=== PATIENT | female | born 1945 | race Caucasian/White ===

== ENCOUNTER 2017-11-06 05:36 | Day surgery (SDC) | payer MEDICARE, OTHER, SELFPAY ==
[2017-11-06] VITALS (8 sets, daily range): BP systolic 97–145; BP diastolic 58–71; PULSE 62–77; RESP 14–18; TEMP 36.3–36.6; O2SAT 95–98; BMI 25.9
--- NOTE | 2017-11-06 | COLBX_PTH ---
PATIENT: SHAYNE HENRY LOC: EN U#:[id number] AGE/SX: 72/F ROOM: RE11/06/[address]: Dr. Tevin Lange MD : 1945 BED: DIS: 11/06/2017 SPEC #: [id number] RECD: 11/06/17 09:55 STATUS: BONNIE TRAVON #: [id number] MARILIN: 11/06/17 00:[address]: Tevin Lange DEPT: SURGICAL PATHOLOGY RECD BY: Corey Barnes ENTERED: 11/06/17 10:14 SP TYPE: COLON BX OTHR DR: Dr. Giles Berg MD Tissues: Rectum, NOS Procedures: Surgery Specimen Level IV HEADER OPERATION: Colonoscopy with biopsy PRE-OP DIAGNOSIS: Diverticulitis TISSUE SUBMITTED: Rectal polyps biopsies MICROSCOPIC DIAGNOSIS Rectal polyps, biopsy: Consistent with hyperplastic polyps. SJ:nabeel 11/09/17 MICROSCOPIC DESCRIPTION Slides are reviewed. GROSS DESCRIPTION Received in fixative is one container labeled with the patient's name and designated rectal polyp biopsy. The specimen consists of two irregular fragments of light ferro soft tissue that in aggregate measure 0.6 x 0.3 x 0.1 cm. The specimen is totally submitted in one cassette. / SJ:nabeel 11/06/17 TC:5 CPT: 41235
--- NOTE | 2017-11-06 06:48 | PCM.OPRPT ---
Problem List (1) Diverticulitis Status: Acute Report of Operation Date of Procedure: 11/06/17 Pre-Operative Diagnosis: Multiple bouts of recurrent diverticulitis Post-Operative Diagnosis: Extensive transverse and descending and sigmoid diverticulosis, 2 diminutive sessile polyps of the rectum Surgery/Procedure Performed:: Colonoscopy with cold forceps biopsy Description of Surgical Findings:: Timeout and informed consent was obtained. 72-year-old female was taken to the endoscopy suite. She was placed in a left lateral decubitus position. Throughout the procedure total of 100 mg Remeron 3.5 mg of Versed were given as intravenous sedation. Digital rectal exam performed. Grade 2-3 internal hemorrhoids. No active bleeding. Flexible colonoscope inserted in the rectum advanced to a somewhat tortuous sigmoid colon. The scope was then advanced into the transverse colon with transabdominal pressure the scope was nicely advanced to the cecum. Bowel prep was very good. The cecum and ileocecal valve area was nicely achieved. The scope was carefully withdrawn from the ascending and transverse colon without abnormality. In the distal transverse colon descending colon and sigmoid colon there was extensive diverticulosis though without evidence of acute inflammation. The scope was retrograde flex within the rectum 2 diminutive rectal polyps identified cold forceps were used to sample and eradicate these 4 mm items. Hemostasis was intact. Excess fluid and air was aspirated. The procedure was completed with the patient tolerating it well. Impression Extensive distal transverse and descending and sigmoid diverticulosis 2 diminutive rectal polyps likely benign The patient will consider a future lap scopic sigmoid colectomy for treatment of multiple bouts of recurrent diverticulitis Next routine screening colonoscopy would be in 10 years pending the pathology of the very diminutive rectal polyps with her previous endoscopy September 22, 2013. CC: Dr. Berg Medications were given at 0630. Scope was inserted 0632. The cecum was reached at 0635.37. The scope was completed 0645.17 Tevin Lange M.D., F.A.C.S. Type of Anesthesia:: IV Sedation
== END 2017-11-06 07:52 | disposition home or self-care (01) ==
LOC: EN 05:37 → AC 05:38
PROVIDERS: Family Provider Internal Medicine; PCP Internal Medicine; Visit Provider Surgery
PROC: 0DJD8ZZ Inspection of Lower Intestinal Tract, Via Natural or Artificial Opening Endoscopic (ICD-10-PCS; CPT 45378; principal; 2017-11-06 06:25)
DX: K62.1 Rectal polyp (principal); K57.30 Diverticulosis of large intestine without perforation or abscess without bleeding; K64.1 Second degree hemorrhoids; E03.9 Hypothyroidism, unspecified; E78.00 Pure hypercholesterolemia, unspecified; Z79.899 Other long term (current) drug therapy
CPT/HCPCS: 45380; 88305; 99152; 99153; J7120

== ENCOUNTER → 2017-11-21 08:00 | Outpatient (CLI) | payer MEDICARE, OTHER, SELFPAY ==
--- NOTE | 2017-11-21 | IMM_PTH ---
PATIENT: SHAYNE HENRY LOC: [facility] U#:[id number] AGE/SX: 79/F ROOM: RE11/21/[address]: Dr. Tevin Lange MD : 1945 BED: DIS: SPEC #: [id number] RECD: 11/26/17 12:50 STATUS: BONNIE REEnder #: [id number] MARILIN: 11/21/17 00:[address]: Tevin Lange DEPT: IMMUNOHISTOCHEMISTRY RECD BY: No Billy Tissues: Right breast, NOS Procedures: CALPONIN-1 (add) CK5-6 (add) CK8 (add) E-CAD (add) HER2 JESSICA (add) KI-67 (add) P53 (add) MI (add) P40 (add) ER (initial) PHYSICIAN & INSTITUTION [place] [id number] SPECIMEN INFORMATION: Tissue Source: Right breast Clinical Info: Abnormal right breast ultrasound Specimen Number: [id number] CPT code: 16284, 45519 x6, 11196 x3 METHODOLOGY: Deparaffinized sections of prefer/formalin-fixed tissue or PAP/DQ stained slides are incubated with monoclonal/polyclonal antibodies/oligonucleotide probes. Localization is made via biotin free immunoperoxidase method. Appropriate controls are performed and reacted as expected. Results on target cell population are indicated in the following table: RESULTS: ANTIBODY / CLONE RESULT P53 (DO-7) negative Ki-67 (30-9) positive, moderate CK8 (89iltsV99) positive, dim CK5-6 (D5 & 1684) positive Calponin-1 (KQ310K) negative P40 (BC28) negative E-Cad (ECH-6) positive MORPHOMETRIC ANALYSIS ER (clone 6F11) 0% MI (clone 16/1E2) 0% Her-2Neu (clone CB11) 0 The prognostic test for HER2 is performed on formalin-fixed paraffin embedded tissue. A 3+ (positive) staining pattern is defined as intense, homogeneous, complete, circumferential membranous staining in >10% of contiguous tumor cells. A similar weak (2+) staining pattern is interpreted as equivocal. JONG follow-up testing is recommended for all equivocal cases. Positivity/negativity for ER/MI is reported if > or < 1% of the tumor cells are immuno- reactive, respectively. The ASCO/CAP criteria is used for scoring. Reference: Journal of Clinical Oncology, 2013; 31:3264-1216 & 2010; 16:1752-9779. Duration of fixation: 48 Hrs; Sample Adequate: Yes. These assays have not been validated on decalcified tissues. Results should be interpreted with caution given the likelihood of false negativity on decalcified specimens. These tests were developed and their performance characteristics determined by [facility]. They may not have been cleared or approved by the U.S. Food and Drug Administration. The FDA has determined that such clearance or approval is not necessary. 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 Negative for estrogen receptors (unfavorable prognostic indicator). Negative for progesterone receptors (unfavorable prognostic indicator). Negative for overexpression of IRX3hhv. AM:nabeel 11/27/17
--- NOTE | 2017-11-21 | BRBX_PTH ---
PATIENT: SHAYNE HENRY LOC: [facility] U#:[id number] AGE/SX: 79/F ROOM: RE11/21/[address]: Dr. Tevin Lange MD : 1945 BED: DIS: SPEC #: [id number] RECD: 11/21/17 10:45 STATUS: BONNIE TRAVON #: [id number] MARILIN: 11/21/17 00:[address]: Tevin Lange DEPT: SURGICAL PATHOLOGY RECD BY: Matt Aragon Tissues: Right breast, NOS Procedures: Surgery Specimen Level IV HEADER OPERATION: Right breast biopsy PRE-OP DIAGNOSIS: Right breast abnormal US TISSUE SUBMITTED: Right breast tissue ISCHEMIC TIME: 5 seconds FIXATION TIME: 48 hours MICROSCOPIC DIAGNOSIS Right breast, ultrasound-guided core biopsy: Invasive ductal carcinoma: Grade ? 2/3 Maximal length ? 12 mm AM:nabeel 11/24/17 COMMENT ER/DC/Pwk5xii studies are being performed on sections of tumor and the results from this study will be reported separately ([id number]). Case has been reviewed in consultation with Dr. Oakley who concurs with the above diagnosis. IDC:SJ MICROSCOPIC DESCRIPTION Slides are reviewed. GROSS DESCRIPTION Received in fixative is one container labeled with the patient's name and designated right breast tissue. The specimen consists of an elongated piece of ferro soft tissue measuring 1.5 cm in length and 0.1 cm in diameter. The specimen is totally submitted in one cassette. / TEODORO:nabeel 11/23/17 TC:0 CPT: 08357
== END ==
PROVIDERS: Visit Provider Surgery
DX: R92.8 Other abnormal and inconclusive findings on diagnostic imaging of breast (principal)
CPT/HCPCS: 88305; 88341; 88342

== ENCOUNTER → 2017-11-25 09:18 | Outpatient (CLI) | payer MEDICARE, OTHER, SELFPAY ==
--- NOTE | 2017-11-25 09:20 | MRI_ITS ---
STUDY: BILATERAL BREAST MR WITHOUT AND WITH CONTRAST REASON FOR EXAM: Female, 72 years old. Right upper outer quadrant breast lump. Biopsy performed November 21, 2017. No results available at this time. TECHNIQUE: Multi-sequence multi-echo imaging of both breasts was performed with a dedicated breast coil. T1-weighted and T2-weighted images were performed before the administration of contrast. T1-weighted images were also performed after the administration of 7 mL of Gadavist contrast intravenously without complications. COMPARISON: FINDINGS: RIGHT BREAST: The breast tissue is fatty with minimal background enhancement. In the upper outer quadrant of the right breast corresponding to the mammographic and ultrasonographic findings is an irregular shaped minimally enhancing mass measuring approximately 14 mm x 9 mm. There is a tissue clip marker in the anterior aspect of the enhancing lesion, which represents the index lesion. LEFT BREAST: The breast tissue is fatty with minimal background enhancement. There are no abnormal enhancing masses or areas of non-mass enhancement in the left breast. There are no enlarged or abnormal lymph nodes. There is no abnormality in the visualized regions of the chest or liver. MRI/Breast w/o and/or W Cont Bilat IMPRESSION: 14 mm x 9 mm enhancing lesion in the upper outer quadrant of the right breast at the 10:00 position corresponding to the mammographic and ultrasonographic findings. No other significant abnormality. CATEGORY: BIRADS Category 6: Known Biopsy-Proven Malignancy - Appropriate Action Should Be Taken. A letter regarding these results will be sent to the patient by the facility within 30 days. Electronically Signed: Demarco Spence MD at 15:23 EDT , Service support ,
== END ==
PROVIDERS: Family Provider Internal Medicine; PCP Internal Medicine; Visit Provider Surgery
DX: N63.11 Unspecified lump in the right breast, upper outer quadrant (principal)
CPT/HCPCS: 77059; A9585; C8908

== ENCOUNTER 2017-12-18 07:10 | Day surgery (SDC) | payer MEDICARE, OTHER, SELFPAY ==
--- NOTE | 2017-12-18 | IMM_PTH ---
PATIENT: SHAYNE HENRY [place] [facility] [id number] AGE/SX: 72/F ROOM: RE12/18/[address]: Dr. Tevin Lange MD : 1945 BED: DIS: 12/18/2017 SPEC #: [id number] RECD: 12/23/17 12:43 STATUS: BONNIE REQ #: [id number] MARILIN: 12/18/17 00:[address]: Tevin Lange DEPT: IMMUNOHISTOCHEMISTRY RECD BY: No Billy ENTERED: 12/23/17 12:44 SP TYPE: IMMUNO OTHR DR: Dr. Giles Berg MD Tissues: A - Axillary lymph node, NOS Procedures: CK7 (add) Pankeratin (initial) Pankeratin (add) PHYSICIAN & INSTITUTION [place] [id number] SPECIMEN INFORMATION: Tissue Source: A ? [place] lymph nodes Clinical Info: Right breast mass Specimen Number: [id number] A1, A2.1 & A2.2, A3 CPT code: 88541, 74390 x5 METHODOLOGY: Deparaffinized sections of prefer/formalin-fixed tissue or PAP/DQ stained slides are incubated with monoclonal/polyclonal antibodies/oligonucleotide probes. Localization is made via biotin free immunoperoxidase method. Appropriate controls are performed and reacted as expected. Results on target cell population are indicated in the following table: RESULTS: ANTIBODY / CLONE RESULT Block A1 AE1-3 (AE1/AE3/PCK26) negative CK7 (OV-TL12/30) negative Block A2.1 AE1-3 (AE1/AE3/PCK26) negative CK7 (OV-TL12/30) negative Block A2.2 AE1-3 (AE1/AE3/PCK26) negative CK7 (OV-TL12/30) negative Block A3 AE1-3 (AE1/AE3/PCK26) negative CK7 (OV-TL12/30) negative These tests were developed and their performance characteristics determined by [facility]. They may not have been cleared or approved by the U.S. Food and Drug Administration. The FDA has determined that such clearance or approval is not necessary. INTERPRETATION: A. [place] lymph nodes, biopsy: Five out of five lymph nodes, negative for metastatic carcinoma. SJ:nabeel 12/24/17
--- NOTE | 2017-12-18 | AXNB_PTH ---
PATIENT: SHAYNE HENRY [place]: [facility] [place][id number] AGE/SX: 72/F ROOM: RE12/18/[address]: Dr. Tevin Lange MD : 1945 BED: DIS: 12/18/2017 SPEC #: [id number] RECD: 12/18/17 11:18 STATUS: BONNIE TRAVON #: [id number] MARILIN: 12/18/17 00:[address]: Tevin Lange DEPT: SURGICAL PATHOLOGY RECD BY: No Billy ENTERED: 12/18/17 12:15 SP TYPE: AX NODE BX OTHR DR: Dr. Giles Berg MD Tissues: A - Axillary lymph node, NOS B - Right breast, NOS Procedures: Frozen Section (charge) Frozen Section Add'l ([facility]) Surgery Specimen Level V Frozen (no charge) HEADER OPERATION: Right breast lumpectomy, sentinel node, NL, Neoprobe PRE-OP DIAGNOSIS: Right breast mass TISSUE SUBMITTED: A ? [place] lymph node for frozen collected at 1111, sent to lab at 1114, B ? Right breast mass, wire anterior lateral, long suture lateral, short suture superior, collected at 1129, sent to lab at 1133 FROZEN SECTION DIAGNOSIS A. [place] lymph nodes, biopsy: Five out of five lymph nodes negative for metastatic carcinoma. SJ:nabeel 12/18/17 MICROSCOPIC DIAGNOSIS A. [place] lymph nodes, biopsy: Five out of five lymph nodes, negative for metastatic carcinoma. See comment. B. Right breast mass, lumpectomy: Invasive ductal carcinoma. See cancer summary below. INVASIVE BREAST CANCER SUMMARY: (Including specimen A & B) Specimen ? partial breast Procedure ? excision with wire-guided localization Lymph node sampling ? sentinel lymph nodes Specimen integrity ? single, intact specimen Specimen size ? 6.5 x 5.5 x 4 cm Specimen laterality - right Tumor site ? not specified Tumor size ? 1.8 x 1.5 x 1.5 cm Tumor focality ? single focus of invasive carcinoma Macroscopic and Microscopic extent of tumor: Skin ? skin is not present. Nipple ? not applicable Skeletal muscle ? no skeletal muscle present. Ductal carcinoma in situ (DCIS) ? no DCIS is present. Lobular carcinoma in situ (LCIS) ? not identified Histologic type of invasive carcinoma ? invasive ductal carcinoma (no special type) Histologic Grade (Pembroke grade): Glandular/tubular differentiation - score 3 Nuclear pleomorphism - score 3 Mitotic count ? score 3 Overall grade - 3 (score of 9) Margins - margins uninvolved by invasive carcinoma. The tumor is 0.2 cm away from the closest superior margin. Treatment effect: Response to presurgical (neoadjuvant) therapy - no known presurgical therapy. Lymph-Vascular invasion ? not identified Dermal lymph-vascular invasion ? not applicable Lymph nodes: Number of sentinel lymph nodes examined - 5 Total number of lymph nodes examined (sentinel and nonsentinel) - 5 Number of lymph nodes with macrometastases, micrometastases and isolated tumor cells - 0 Method of evaluation of sentinel lymph nodes - H & E, multiple levels and IHC. Distance metastasis ? not applicable Additional pathologic findings ? intraductal hyperplasia without atypia Ancillary studies - previously performed on section of tumor ([id number] / [id number]). ER ? negative (0%) NM - negative (0%) Her2 lena ? negative (0) Microcalcifications ? not identified Clinical history - Please make reference to previous specimen ([id number]) right breast, ultrasound-guided core biopsy with diagnosis of invasive ductal carcinoma. PATHOLOGIC STAGE: pT1c pN0(sn) Mx The above summary is in compliance with [employer] (CAP) Cancer Protocols Checklist and [place] Joint Committee on Cancer (AJCC), Staging Manual, 8th Ed. SJ:nabeel 12/23/17 COMMENT A. The lymph nodes are negative for metastatic carcinoma on multiple H & E levels and immunohistochemical stains for cytokeratins ([id number]). Case has been reviewed in consultation with Dr. Gonzales who concurs with the above diagnosis. IDC:AM MICROSCOPIC DESCRIPTION Slides are reviewed. GROSS DESCRIPTION A - Received fresh for frozen section diagnosis labeled with the patient's name is a specimen designated sentinel lymph node. The specimen consists of a piece of adipose tissue containing a nodule consistent with lymph node. Five lymph nodes are identified measuring 0.5 to 1.5 cm in greatest dimension. Research Methodologist sections are submitted in three cassettes as follows: 1 ? frozen section, one bisected lymph node, 2 ? frozen section, two lymph nodes, one lymph node inked black (submitted as 2.1 and 2.2 for permanent), 3 ? two lymph nodes, one lymph node inked black. / SJ:nabeel 12/18/17 B Received fresh for intraoperative consultation labeled with the patient's name is a specimen designated right breast mass. The specimen consists of a piece of fibroadipose tissue with needle localization measuring 6.5 x 5.5 x 4 cm. The specimen is oriented as follows: wire - anterior lateral, long suture - lateral, short suture ? superior. The specimen is inked as follows: anterior ? yellow, posterior ? black, superior ? blue, inferior ? green, medial ? red and lateral ? orange. The specimen is serially sectioned and reveals a ferro, indurated mass measuring 1.8 x 1.5 x 1.5 cm. This mass is 0.2 cm away from the superior margin. This information is conveyed to the surgeon intraoperatively. Sections of the rest of the tissue reveal ferro-yellow adipose cut surfaces mixed with ferro-white fibrous area. Also present in the specimen container are detached pieces of adipose tissue measuring in aggregate 5 x 3 x 1 cm. Sections of the detached pieces of tissue do not reveal any mass lesion. Research Methodologist sections are submitted in 12 cassettes as follows: 1 ? perpendicular medial and lateral margins, 2 ? perpendicular anterior, posterior and inferior margins, 3-7 ? entire tumor with closest superior margin, 8 ? direct customer service representative section adjacent to the tumor, 9-12 ? direct customer service representative sections away from the tumor. / TEODORO:nabeel 12/21/17 TC:0 CPT: 45172 x2, 41711, 06691 x2, 60692
--- NOTE | 2017-12-18 07:14 | EKG12_ITS ---
Test Reason : PRE OP Blood Pressure : / mmHG Vent. Rate : 078 BPM Atrial Rate : 078 BPM P-R Int : 146 ms QRS Dur : 078 ms QT Int : 388 ms P-R-T Axes : 071 -09 030 degrees QTc Int : 442 ms Sinus rhythm with occasional Premature ventricular complexes Confirmed by ERIN SCHWAB, ANIBAL ([id number]), electronic news gathering editor JENS RAMOS ([id number]) on 12/21/2017 4:07:11 PM Referred By: Tevin Lange Confirmed By:ANIBAL KHAN MD
--- NOTE | 2017-12-18 07:16 | NM_ITS ---
PROCEDURE: NUCLEAR MEDICINE Injection [place] Node - RIGHT breast(s). REASON FOR EXAM: Female, 72 years old. Right breast cancer. TECHNIQUE: [place] node localization using radionuclide methods of the RIGHT breast(s) was performed following subcutaneous administration of 1.1 mCi of of sulfur colloid Tc-99m. FINDINGS: 1.1 mCi of technetium labeled sulfur colloid was injected subcutaneously in the upper outer quadrant of the breast for sentinel node imaging. NM/Lymph Node Injection Only IMPRESSION: Subcutaneous injection of 1.1 mCi of Tc labeled sulfur colloid in 4 equal aliquots as described Electronically Signed: Michael Napoles MD at 9:00 EDT Tel [phone], Service support ,
--- NOTE | 2017-12-18 07:24 | RAD_ITS ---
STUDY: X-RAY CHEST REASON FOR EXAM: Female, 72 years old. Preoperative assessment TECHNIQUE: PA and lateral COMPARISON: None. FINDINGS: The lungs are clear and expanded. There is no demonstrated pleural abnormality. There is a 1 cm calcified granuloma in the RIGHT upper lung. Normal size heart. Normal mediastinum and ondina. Normal visualized pulmonary arteries. Normal visualized aortic arch and descending thoracic aorta. Normal visualized thoracic spine. Normal visualized ribs, clavicles, and shoulders. There is no demonstrated abnormality of the visualized soft tissue structures of the upper abdomen. RAD/Chest PA and Lateral IMPRESSION: There is NO acute cardiopulmonary abnormality. Electronically Signed: Damir Wolf MD at 7:43 EDT , Service support ,
[2017-12-18 08:11] VITALS: BP 135/68; PULSE 75; RESP 16; TEMP 36.8; O2SAT 100; BMI 26.6
--- NOTE | 2017-12-18 08:14 | BI_ITS ---
SURGICAL BREAST SPECIMEN RADIOGRAPH CLINICAL: Document presence of surgical clip and localization wire in biopsy specimen. FINDINGS: Specimen shows presence of surgical clip and localization wire. Pathology is pending and an addendum to the biopsy report will be performed after the final pathologic diagnosis is rendered. Electronically Signed: Tevin Spencer, at 10:04 EDT Tel , Service support , BI/Breast Biopsy Specimen
[2017-12-18 08:23] LABS: Hematocrit 39.9 % (37-47); Hemoglobin 13.1 g/dl (12.0-15.0); Mean Corp Hgb Conc 32.8 g/gl (32-36); Mean Corpuscular Hgb 32.2 pg (27.0-32.0); Mean Platelet Vol. 10.7 fl (6.2-12.0); Platelet Count 162 K/mm3 (150-450); RBC Distribution Width CV 11.8 % (11.6-14.6); RBC Distribution Width SD 42.6 fl (35.1-43.9); Red Blood Count 4.07 M/mm3 (4.2-5.4); White Blood Count 3.8 K/mm3 (4.4-11.0)
[2017-12-18 08:30] LABS: Scan Indicated on CBC? Y/N NO
[2017-12-18 08:40] LABS: ALB/GLOB Ratio 1.1 RATIO (0.9-2.4); AST(SGOT) 24 U/L (15-37); Alanine Aminotransfer ALT/SGPT 29 U/L (13-56); Albumin, Serum 3.8 g/dL (3.2-5.0); Alkaline Phosphatase 67 U/L (45-117); Anion Gap 7 (5-15); BUN 13 mg/dL (7-18); BUN/Creat Ratio 17.9 RATIO (10-20); Calcium,Total 9.1 mg/dL (8.5-10.1); Chloride 107 mmol/L (98-107); Creatinine, Serum 0.73 mg/dL (0.55-1.02); EST Glomerular Filtration Rate 84 mL/min (>60); Est Glom Filt Rate - Afr Amer 101 mL/min (>60); Estimated Creatinine Clearance 38.37 ml/min; Globulin 3.4 g/dL (2.2-4.2); Glucose 100 mg/dL (74-106); Potassium 3.5 mmol/L (3.5-5.1); Protein, Total 7.2 g/dL (6.4-8.2); Sodium Level 143 mmol/L (136-145)
--- NOTE | 2017-12-18 10:33 | OP.PCM_ITS ---
Problem List (1) Breast cancer Status: Acute Qualifiers: Breast location: upper outer quadrant of breast Estrogen receptor status: negative Patient sex: female Laterality: right Qualified Code(s): C50.411 - Malignant neoplasm of upper-outer quadrant of right female breast; Z17.1 - Estrogen receptor negative status [ER-] (2) Breast mass, right Status: Acute Report of Operation Date of Procedure: 12/18/17 Pre-Operative Diagnosis: Invasive ductal carcinoma upper outer quadrant right breast Post-Operative Diagnosis: Same Surgery/Procedure Performed:: Stereotactic wire localization upper outer quadrant right breast. Right breast wire localized lumpectomy with right axillary blue dye and radioactive tracer sentinel lymph node biopsy Description of Surgical Findings:: Timeout and informed consent was obtained. 72-year-old female was taken to the stereotactic unit. She was placed prone on the table. The right breast was placed in a lateral medial view. The marking clip from the previous ultrasound- guided biopsy was rapidly identified. Stereotactic images are obtained. Digital information was obtained on the single target site. 15 mm was added to the depth. The right breast was sterilely prepped and draped. 1% lidocaine was used as local anesthetic. A 20-gauge Kopans needle is advanced to depth. It was placed. CC and mediolateral views were obtained demonstrating good localization. The patient tolerated the procedure well no apparent complications. Sterile dressings were applied. The patient was subsequently taken to the operating room for definitive surgical resection. Blood loss minimal no apparent complications. 70-year-old female was taken out from. She was placed on the table. She underwent general anesthesia. The right arm was carefully wrapped with soft roll simply the table. The right periareolar breast was prepped with alcohol. 2 cc. Massage was performed for 4 minutes. Then the right breast and axilla were sterilely prepped and draped including the wire localization area. I marked in the right axilla and the incision site. I used the neoprobe check the breast count and then the axillary count. Axillary count got to as high as 24 with the breast count being 3,400. I made my incision sharp dissection was performed immediate lymphatic blue tracts are identified I traced that to what appeared to be 2 blue lymph nodes adjacent to each other. There was then an adherent conglomerate of lymph nodes just adjacent to this area. I used hemoclips for hemostasis performed electrocautery completely around this conglomerate. I had completely removed had a 10 second count of 131 of the lymph node that was blue there is an additional lymph node that was removed that was pale there was no counts located within that visual inspection failed to reveal any suspicious residual lymph nodes I could not palpate any disease. That specimen was sent for frozen section and we got the frozen section returned 5 lymph nodes all negative. Hemostasis was assured in that right axillary spot. Now a curvilinear incision made in the upper quadrant of the right breast based upon the wire localization tedious circumferential dissection was performed using electrocautery. Specimen was completely excised there is some additional tissue on the posterior aspect that I completely removed as well in satisfactory separate specimens. The superficial margin actually was just beneath the skin where I made the incision. There was no gross evidence disease at that spot. The wire exited anterior laterally and put a long suture laterally and a short sutures superiorly. The specimen is felt to have clear margins albeit 2 mm margins at the anterior site. There is absolutely no ink on the tumor I felt that was an appropriate resection. I put for marking hemoclips within the cavity at the site of the tumor. The wound was hemostatic it was closed with deep layer of interrupted 3-0 Vicryl and the superficial layer of interrupted 4-0 Monocryl subdermal stitches. The axilla was closed with interrupted 3-0 Vicryl subdermal stitches and then a running septic or 4 Monocryl. Steri-Strips Telfa and OpSite dressings applied. The nhung- incisional wounds were anesthetized with 0.5% Marcaine 10 cc of Marcaine was used. A pressure dressing was applied. Sponge and instrument and needle counts were reported the surgeon for correct.. Specimens submitted included a right axillary sentinel lymph nodes in the right breast mass. Drains none. Blood loss minimal. The patient was sent to the recovery room in satisfactory condition. Tevin Lange M.D., F.A.C.S. Type of Anesthesia:: General Anesthesiologist: Damien Linder
[2017-12-18] MEDS: Ondansetron 4 MG/2 ML Vial (10:38)
[2017-12-18] MEDS: Isosulfan Blue 1% 5 ML Vial (10:40)
[2017-12-18] MEDS: Bupivacaine 0.25% 30 ML Vial (10:55)
[2017-12-18 12:04] VITALS: BP 117/66; BP 135/68; PULSE 88; RESP 16; TEMP 36.9; O2SAT 96
--- NOTE | 2017-12-18 12:05 | DCINST_ITS ---
Discharge Diet: No Restrictions Discharge Activity: May Not Drive - for 2-3 days or while taking narcotic pain meds. May shower in (days): 1 Lifting Restrictions: 10 pounds for 1 week. Call your doctor if your incision/area has: Continuous Slow Oozing, Sudden Increased Bleeding Call your doctor if you observe: Fever of 101 or Higher Suture Line Care: Avoid Pulling/Pushing, Avoid Pinching/Bending Remove Dressing in (days):: 1 - Remove bulky dressing tomorrow. May leave any opsite dressing for 3-4 days. Keep dressing in place until your follow-up appointment. Additional Dressing/Incision Instructions:: Remove bulky dressing tomorrow. May leave any opsite dressing for 3-4 days. Keep dressing in place until your follow-up appointment. Allergies/Adverse Reactions: Allergies ciprofloxacin [From Cipro] Allergy (Mild, Verified 12/18/17 08:01) Anaphylaxis erythromycin base Allergy (Mild, Verified 12/18/17 08:01) Unknown Medications to take at Discharge calcium citrate-vitamin D3 315 mg-250 unit tablet 1 tab PO QAM 10/15/17 fluticasone 50 mcg/actuation nasal spray,suspension 1 spray INTRANASAL QDAY latanoprost 0.005 % eye drops 1 drp OPHTHALMIC QPM 10/15/17 levothyroxine 50 mcg capsule 50 mcg PO QDAY 10/15/17 loratadine 10 mg tablet 10 mg PO QDAY 10/15/17 multivitamin capsule 1 cap PO QAM 10/15/17 sennosides 8.6 mg tablet 8.6 mg PO BID PRN 10/15/17 simvastatin 20 mg tablet 20 mg PO QPM 10/15/17 Hydrocodone Bitart/Apap 5-325 [[place] 5MG-325MG] 1 tablet PO Q6H PRN PRN 2 Days # 8 tablet 12/18/17 The following prescriptions were given: Hydrocodone Bitart/Apap 5-325 [[place] 5MG-325MG] 1 tablet PO Q6H PRN PRN 2 Days # 8 tablet PRN Reason: Pain Primary Care Physician: Giles Berg [Primary Care Provider] -
[2017-12-18 12:15] VITALS: BP 115/65; BP 135/68; PULSE 86; RESP 16; O2SAT 99
[2017-12-18 12:29] VITALS: BP 129/63; BP 135/68; PULSE 88; RESP 16; O2SAT 96
[2017-12-18 12:41] VITALS: BP 120/64; BP 135/68; PULSE 82; RESP 16; TEMP 36.7; O2SAT 99
[2017-12-18 13:34] VITALS: BP 135/68
== END 2017-12-18 13:35 | disposition home or self-care (01) ==
LOC: SDC 07:11 → AC 07:11
PROVIDERS: Family Provider Internal Medicine; PCP Internal Medicine; Visit Provider Surgery
PROC: (CPT 19301; principal; 2017-12-18 09:45)
DX: C50.411 Malignant neoplasm of upper-outer quadrant of right female breast (principal); Z17.1 Estrogen receptor negative status [ER-]; E03.9 Hypothyroidism, unspecified; E78.00 Pure hypercholesterolemia, unspecified; Z79.899 Other long term (current) drug therapy
CPT/HCPCS: 19301; 38500; 19281; 36415; 38792; 71046; 76098; 80053; 85027; 88305; 88307; 88309; 88331; 88332; 88341; 88342; 93005; A9541; J7120; J2405; Q9968

== ENCOUNTER 2018-01-28 09:14 | Day surgery (SDC) | payer MEDICARE, OTHER, SELFPAY ==
[2018-01-28 09:35] VITALS: BP 131/68; PULSE 73; RESP 14; TEMP 36.8; O2SAT 99; BMI 26.6
[2018-01-28] MEDS: Cefazolin 2 GM in 0.9% Normal Saline 100 ML IV (10:55)
--- NOTE | 2018-01-28 10:59 | PCM.DC.GS ---
Discharge Diet: Light diet - advance as tolerated - if you have questions about your diet instructions, please talk to you doctor. Discharge Activity: May Not Drive - for 1 week or while taking narcotic pain medicine. May shower in (days): 1 Lifting Restrictions: 10 pounds Call your doctor if your incision/area has: Continuous Slow Oozing, Sudden Increased Bleeding, Increased Pain/ Swelling, Increased Redness, Foul Smelling Discharge Call your doctor if you observe: Fever of 101 or Higher Suture Line Care: Avoid Pulling/Pushing, Avoid Pinching/Bending Additional Dressing/Incision Instructions:: Change or remove dressing in 4 days. Leave steri-strips in place for 1 week. Allergies/Adverse Reactions: Allergies ciprofloxacin [From Cipro] Allergy (Intermediate, Verified 01/27/18 11:39) Anaphylaxis IRREGLULAR HEART BEAT erythromycin base Allergy (Mild, Verified 01/27/18 11:39) Unknown Medications to take at Discharge calcium citrate-vitamin D3 315 mg-250 unit tablet 2 tab PO BID 10/15/17 fluticasone 50 mcg/actuation nasal spray,suspension 1 spray INTRANASAL QDAY 10/15/17 latanoprost 0.005 % eye drops 1 drp OPHTHALMIC QPM 10/15/17 levothyroxine 50 mcg capsule 50 mcg PO QDAY 10/15/17 loratadine 10 mg tablet 10 mg PO QDAY 10/15/17 multivitamin capsule 1 cap PO QAM 10/15/17 sennosides 8.6 mg tablet 8.6 mg PO DAILY 10/15/17 simvastatin 20 mg tablet 20 mg PO QPM 10/15/17 Dexamethasone [Decadron] 8 mg PO BID 84 Days #48 tab 01/27/18 Lidocaine/Prilocaine [Lidocaine-Prilocaine Cream] 30 gm TP DAILY PRN PRN #1 cream..g. 01/27/18 Ondansetron [Zofran Odt] 8 mg PO Q8H PRN PRN 10 Days #30 tab 01/27/18 Primary Care Physician: Giles Berg [Primary Care Provider] - Test Results: Test results from this visit will be discussed in further detail at your follow-up appointment, if applicable. Please Follow Up With: Tevin Lange MD - [phone] When: Further office appts. may be as you need. No sutures for removal
--- NOTE | 2018-01-28 11:02 | RAD_ITS ---
STUDY: X-RAY CHEST REASON FOR EXAM: Female, 72 years old. Post port placement. TECHNIQUE: Single AP portable view of the chest. COMPARISON: Comparison is made with prior study dated December 18, 2017. FINDINGS: A left sided vicente catheter as been placed. The tip is at the junction of the superior vena cava and right atrium. Stable calcified granulomas in the right lung. There is no demonstrated pleural abnormality. Normal size heart. Normal mediastinum and ondina. Normal visualized pulmonary arteries. There is atherosclerotic tortuosity of the aortic arch and descending thoracic aorta. Normal visualized thoracic spine. Normal visualized ribs, clavicles, and shoulders. There is no demonstrated abnormality of the visualized soft tissue structures of the upper abdomen. RAD/CXR for Line Placement IMPRESSION: Status post left portacatheter placement. The tip is at the junction of the superior vena cava and right atrium. Electronically Signed: Michael Napoles MD at 12:20 EDT Tel [phone], Service support ,
[2018-01-28] MEDS: Bupivacaine Mpf 0.5% 30 ML VIAL (11:30)
--- NOTE | 2018-01-28 11:42 | OP.PCM_ITS ---
Problem List (1) Breast cancer, right breast Status: Chronic Qualifiers: Report of Operation Date of Procedure: 01/28/18 Pre-Operative Diagnosis: Right breast cancer as noted Post-Operative Diagnosis: Same Surgery/Procedure Performed:: Left internal jugular 6 [place] PowerPort placement Description of Surgical Findings:: Timeout informed consent was obtained. 72-year-old female was taken the operating room. She was placed supine on the table. The left neck and chest were sterilely prepped draped. Ancef 2 g given intravenous preoperatively. Ultrasound was used to identify the left internal jugular vein. Under ultrasound guidance 1% lidocaine mixed 50-50 with 0.5% Marcaine was used as a local anesthetic. Throughout the procedure total of 13 cc was used. Local was instilled. A micropuncture needle was inserted into the left internal jugular vein followed by Seldinger wire advancement. Fluoroscopy demonstrated good positioning. Sheath dilator was inserted. The dilator wire removed. An 035 J- wire was inserted. Then local was instilled down upon the left chest wall second intercostal space and transverse incision was created. Left heart was used to make a subtenons pocket. The tubing was tunneled from the neck to the chest site. Then under fluoroscopic control sheath dilator was placed over the wire. The wire and the dilator were removed. The catheter was advanced through the sheath. The sheath was split. The catheter was positioned at the SVC atrial junction. It was amputated. Risk that was connected to the port and secured there with a port attachment device. The port was placed within the pocket and secured there with interrupted 2-0 silk. The port site was closed with interrupted 3-0 Vicryl subdermal stitches. The neck was closed with interrupted 5-0 Vicryl subdermal stitches. The port was accessed with a Sesay needle. It aspirated and flushed easily. It was flushed with 2 cc of heparinized saline. Steri-Strips Telfa OpSite dressings applied. Sponge and instrument and needle counts were reported the surgeon to be correct. Specimens none. Drains none. Blood loss minimal. She was taken to the recovery room in satisfactory condition without apparent complication. Stat portable chest x-ray is pending Tevin Lange M.D., F.A.C.S. Type of Anesthesia:: Local MAC Anesthesiologist: Demarco Hough
[2018-01-28 11:47] VITALS: BP 131/68; BP 97/85; PULSE 72; RESP 16; TEMP 36.2; O2SAT 94
[2018-01-28 11:52] VITALS: BP 117/71; BP 131/68; PULSE 62; RESP 16; O2SAT 98
[2018-01-28 11:57] VITALS: BP 124/72; BP 131/68; PULSE 64; RESP 16; O2SAT 99
[2018-01-28 12:05] VITALS: BP 108/71; BP 131/68; PULSE 62; RESP 16; TEMP 36.2; O2SAT 98
[2018-01-28 12:53] VITALS: BP 131/68
== END 2018-01-28 12:56 | disposition home or self-care (01) ==
LOC: SDC 09:15 → AC 09:16
PROVIDERS: Family Provider Internal Medicine; PCP Internal Medicine; Visit Provider Surgery
PROC: (CPT 36571; principal; 2018-01-28 10:45)
DX: C50.411 Malignant neoplasm of upper-outer quadrant of right female breast (principal); Z45.2 Encounter for adjustment and management of vascular access device; E03.9 Hypothyroidism, unspecified; E78.00 Pure hypercholesterolemia, unspecified; Z79.899 Other long term (current) drug therapy
CPT/HCPCS: 36571; 71045; 77001; J7120; C1788; J2405

== ENCOUNTER 2018-02-09 21:06 | Emergency (ER) | payer MEDICARE, OTHER, SELFPAY ==
[2018-02-09 21:07] VITALS: BP 108/67; PULSE 116; RESP 14; TEMP 38.1; O2SAT 97; BMI 27.1
--- NOTE | 2018-02-09 21:32 | EKG12_ITS ---
Test Reason : FEVER Blood Pressure : / mmHG Vent. Rate : 097 BPM Atrial Rate : 097 BPM P-R Int : 120 ms QRS Dur : 070 ms QT Int : 336 ms P-R-T Axes : 065 019 038 degrees QTc Int : 426 ms Poor data quality, interpretation may be adversely affected Sinus rhythm with Premature atrial complexes Otherwise normal ECG Confirmed by ERIN SCHWAB, ANIBAL ([id number]), assistant editor JENS RAMOS ([id number]) on 02/12/2018 2:20:10 PM Referred By: BROWN Confirmed By:ANIBAL KHAN MD
[2018-02-09] MEDS: Acetaminophen 500 MG Tablet 1000 MG PO (22:21)
[2018-02-09 22:31] VITALS: BP 125/69; PULSE 92; RESP 20; O2SAT 97
--- NOTE | 2018-02-09 22:35 | RAD_ITS ---
STUDY: X-RAY CHEST REASON FOR EXAM: Female, 72 years old. Breast cancer TECHNIQUE: PA and lateral views of the chest. COMPARISON: January 28, 2018. FINDINGS: Port on the left extends to the cavoatrial junction. The lungs are clear and expanded. There is right upper lung granuloma There is no demonstrated pleural abnormality. Normal size heart. Normal mediastinum and ondina. Normal visualized pulmonary arteries. Normal visualized aortic arch and descending thoracic aorta. There are diffuse degenerative changes of the visualized thoracic spine. Normal visualized ribs, clavicles, and shoulders. There is no demonstrated abnormality of the visualized soft tissue structures of the upper abdomen. RAD/Chest PA and Lateral IMPRESSION: Degenerative changes, as described above. No demonstrated acute cardiopulmonary process. Electronically Signed: Ghulam Espino MD at 23:43 EDT , Service support ,
[2018-02-09 22:47] LABS: Bacteria 0 SEEN /hpf (None Seen); Mucous, Urine 0 SEEN /hpf (<or=2+); Red Blood Cells-Urine 0 SEEN /hpf (0-5); Squamous Epithelial Cells - UA 0 SEEN /hpf (5-10); White Blood Cells 0 SEEN /hpf (0-5)
[2018-02-09 22:48] LABS: Color, Urine Yellow (Yellow); Glucose, Dipstick Normal (Normal); Ketone-Dipstick Negative (Negative); Leukocyte Esterase-Dipstick Negative /ul (Negative); Nitrite-Dipstick Negative (Negative); Occult Blood-Urine Negative /ul (Negative); Protein-Dipstick Negative (Negative); Specific Gravity, Urine 1.005 (1.002-1.030); Urine Bilirubin Dipstick Negative (Negative); Urine Clarity Clear (Clear); Urine Urobilinogen Normal (Normal)
[2018-02-09 22:49] LABS: International Normalized Ratio 1.1; Prothrombin Time (Protime)PT. 14.2 SECONDS (11.7-14.9)
[2018-02-09 22:50] LABS: Partial Thromboplast Time 33.3 Seconds (24.1-36.2)
[2018-02-09 22:56] LABS: ALB/GLOB Ratio 0.9 RATIO (0.9-2.4); AST(SGOT) 18 U/L (15-37); Alanine Aminotransfer ALT/SGPT 29 U/L (13-56); Albumin, Serum 3.1 g/dL (3.2-5.0); Alkaline Phosphatase 70 U/L (45-117); BUN 8 mg/dL (7-18); BUN/Creat Ratio 12.1 RATIO (10-20); Calcium,Total 8.6 mg/dL (8.5-10.1); Chloride 101 mmol/L (98-107); Creatinine, Serum 0.66 mg/dL (0.55-1.02); EST Glomerular Filtration Rate 93 mL/min (>60); Est Glom Filt Rate - Afr Amer 113 mL/min (>60); Estimated Creatinine Clearance 38.37 ml/min; Globulin 3.6 g/dL (2.2-4.2); Glucose 133 mg/dL (74-106); Potassium 3.6 mmol/L (3.5-5.1); Protein, Total 6.7 g/dL (6.4-8.2); Sodium Level 136 mmol/L (136-145)
[2018-02-09 22:57] LABS: Anion Gap 6 (5-15)
[2018-02-09 23:08] LABS: Absolute Lymphocyte Count 0.84 X10^3/ul (0.83-4.51); Absolute Neutrophil Count 0.6 X10^3/uL (2.0-7.7); Basophil# 0.01 X10^3/uL; Basophil% 0.5 % (0-1); Eosinophil# 0.02 X10^3/uL; Hematocrit 35.9 % (37-47); Hemoglobin 11.9 g/dl (12.0-15.0); Lymphocyte # 0.84 X10^3/ul (4.0); Lymphocyte % 41.4 % (19-41); Mean Corp Hgb Conc 33.1 g/gl (32-36); Mean Corpuscular Hgb 31.8 pg (27.0-32.0); Mean Platelet Vol. 11.5 fl (6.2-12.0); Monocyte# 0.59 X10^3/uL; Monocyte% 29.1 % (0-10); Neutrophil # 0.56 X10^3/uL (2.7-7.7); Neutrophil % 27.5 % (47-70); Platelet Count 112 K/mm3 (150-450); RBC Distribution Width CV 11.7 % (11.6-14.6); RBC Distribution Width SD 41.2 fl (35.1-43.9); Red Blood Count 3.74 M/mm3 (4.2-5.4)
[2018-02-09 23:12] LABS: Differential Indicated SCAN CRITERIA MET; POSITIVE COUNT NO; POSITIVE DIFFERENTIAL YES; POSITIVE MORPHOLOGY YES
[2018-02-09 23:16] VITALS: BP 110/63; PULSE 85; RESP 21; O2SAT 98
[2018-02-09 23:19] VITALS: TEMP 36.9
[2018-02-09 23:34] LABS: Differential Comment SCANNED
--- NOTE | 2018-02-09 23:49 | ED.VISSUMM ---
- ER Visit Summary Date of Service: 02/09/18 Chief Complaint: Fever History of Present Illness: The patient is a 72 F with history of breast cancer status post lumpectomy and node biopsy by Dr. Tevin Lange. She was diagnosed with stage I breast cancer. First dose of chemotherapy February 03. She denies headache. She denies photophobia, rhinorrhea, nasal congestion, postnasal drainage, sore throat or earache. She denies neck pain or neck stiffness. She denies shortness of breath, cough or dyspnea on exertion. She denies dysuria, frequency, urgency or hematuria. He denies nausea, vomiting or diarrhea. She denies rash. She denies any other symptoms. Physical Examination: Temperature 100.6 with a heart rate of 116. She is not hypoxic. Head is atraumatic normocephalic. Pupils are equal round reactive. Extraocular muscles are intact. TMs are pearly white with landmarks noted. Nares patent with no drainage. Posterior pharynx without erythema or exudate. Uvula is midline. There is no dysphonia or dysphasia. Trachea is midline. There is no stridor with auscultation of the neck. There is no tenderness over the frontal, ethmoid or maxillary sinuses. Neck is supple. Heart is regular without murmur, gallop or rub. S1 and S2 are normal. Lungs are clear to auscultation with good movement of air bilaterally. Abdomen is soft nontender bowel sounds present normal. There is no CVA tenderness noted. There is no skin lesion or rash noted. Neuro exam is nonfocal. Test Results: EKG sinus rhythm rate of 97 with normal MA interval, QRS duration and QT interval. [place] is normal. Two-view chest x-ray interpreted by me as negative. Cardiac silhouette normal. Mediastinum normal. Lung parenchyma normal. Osseous structures are normal. White count is 2000 with 27.5% neutrophils, absolute neutrophil count 550. Basic metabolic panel is unremarkable. UA is negative. Emergency Department Course and Treatment: Neutropenic order set was initiated and she received her first dose of meropenem. Case was discussed with her oncologist Dr. Parth Walton. She is scheduled to see him tomorrow morning. She was given a prescription for Augmentin. Treatment Plan: Keep appointment with oncology in the morning and prescription for Augmentin Disposition: Discharged to home Impression: Fever in neutropenic patient, absolute neutrophil count greater than 500 History of stage I breast cancer This note was generated with CRV dictation software. It may contain incorrect words, spelling, and punctuation that were not noted in review of the chart prior to signing ED Disposition - Plan for ED Patient: Disposition: Home or Assisted Living Chief Complaint: Fever Instructions: Neutropenia, ED Fever Unconf Cause Prescriptions: Amox/Clavulanate Tablet [Augmentin Tablet] 875 mg PO Q12H #14 tablet Referrals: Giles Berg [Primary Care Provider] - Parth Walton MD [NON-STAFF] - Keep Zulema appointment Additional Instructions: Your prescription was electronically transmitted to [facility] pharmacy in [place] your designated pharmacy
--- NOTE | 2018-02-09 23:54 | ED.DCSUM_ITS ---
- ER Visit Summary Date of Service: 02/09/18 Chief Complaint: Fever History of Present Illness: The patient is a 72 F with history of breast cancer status post lumpectomy and node biopsy by Dr. Tevin Lange. She was diagnosed with stage I breast cancer. First dose of chemotherapy February 03. She denies headache. She denies photophobia, rhinorrhea, nasal congestion, postnasal drainage, sore throat or earache. She denies neck pain or neck stiffness. She denies shortness of breath, cough or dyspnea on exertion. She denies dysuria, frequency, urgency or hematuria. He denies nausea, vomiting or diarrhea. She denies rash. She denies any other symptoms. Physical Examination: Temperature 100.6 with a heart rate of 116. She is not hypoxic. Head is atraumatic normocephalic. Pupils are equal round reactive. Extraocular muscles are intact. TMs are pearly white with landmarks noted. Nares patent with no drainage. Posterior pharynx without erythema or exudate. Uvula is midline. There is no dysphonia or dysphasia. Trachea is midline. There is no stridor with auscultation of the neck. There is no tenderness over the frontal, ethmoid or maxillary sinuses. Neck is supple. Heart is regular without murmur, gallop or rub. S1 and S2 are normal. Lungs are clear to auscultation with good movement of air bilaterally. Abdomen is soft nontender bowel sounds present normal. There is no CVA tenderness noted. There is no skin lesion or rash noted. Neuro exam is nonfocal. Test Results: EKG sinus rhythm rate of 97 with normal [place] interval, QRS duration and QT interval. [place] is normal. Two-view chest x-ray interpreted by me as negative. Cardiac silhouette normal. Mediastinum normal. Lung parenchyma normal. Osseous structures are normal. White count is 2000 with 27.5% neutrophils, absolute neutrophil count 550. Basic metabolic panel is unremarkable. UA is negative. Emergency Department Course and Treatment: Neutropenic order set was initiated and she received her first dose of meropenem. Case was discussed with her oncologist Dr. Parth Walton. She is scheduled to see him tomorrow morning. She was given a prescription for Augmentin. Treatment Plan: Keep appointment with oncology in the morning and prescription for Augmentin Disposition: Discharged to home Impression: Fever in neutropenic patient, absolute neutrophil count greater than 500 History of stage I breast cancer This note was generated with Cloud9 IDE dictation software. It may contain incorrect words, spelling, and punctuation that were not noted in review of the chart prior to signing ED Disposition - Plan for ED Patient: Disposition: Home or Assisted Living Chief Complaint: Fever Instructions: Neutropenia, ED Fever Unconf Cause Prescriptions: Amox/Clavulanate Tablet [Augmentin Tablet] 875 mg PO Q12H #14 tablet Referrals: Giles Berg [Primary Care Provider] - Parth Walton MD [NON-STAFF] - Keep Zulema appointment Additional Instructions: Your prescription was electronically transmitted to [facility] pharmacy in [place] your designated pharmacy
[2018-02-10 00:12] VITALS: BP 107/55; PULSE 87; RESP 22; O2SAT 96
[2018-02-10 01:58] LABS: Reflex Lactate? Y
== END 2018-02-10 00:13 | disposition home or self-care (01) ==
PROVIDERS: Emergency Provider Emergency Medicine; Family Provider Internal Medicine; PCP Internal Medicine
DX: D70.9 Neutropenia, unspecified (principal); R50.9 Fever, unspecified; Z85.3 Personal history of malignant neoplasm of breast; Z79.899 Other long term (current) drug therapy
CPT/HCPCS: 36415; 36591; 71046; 80053; 81001; 83605; 85025; 85610; 85730; 87040; 87086; 93005; 96365; 99283; J2185; J7040; A4216

== ENCOUNTER → 2018-03-04 13:27 | Outpatient (CLI) | payer MEDICARE, OTHER, SELFPAY ==
--- NOTE | 2018-03-04 13:29 | CT_ITS ---
STUDY: CT ABDOMEN AND PELVIS WITH CONTRAST REASON FOR EXAM: Female, 72 years old. 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 100 ml of Isovue 300 contrast was administered. Sagittal and coronal images were reconstructed. # of Images: 468 Individualized dose optimization techniques were used for this CT. COMPARISON: None. FINDINGS: The visualized lung bases are unremarkable. The visualized portions of the heart are within normal limits. Normal liver. Normal gallbladder and extrahepatic biliary system. Normal spleen. Normal pancreas. Normal bilateral adrenal glands. Multiple cysts are seen in the right kidney largest measures 1 cm. There is a cyst in left kidney measures 6 mm. Normal visualized stomach. Normal small intestine. There are multiple colonic diverticula consistent with diverticulosis. The appendix is visualized and appears normal. Normal abdominal aorta. Normal inferior vena cava. Normal retroperitoneum. Normal urinary bladder. Normal abdominal wall. Normal osseous structures. CT/Abdomen/Pelvis WITH Contrast IMPRESSION: Colon diverticulosis. Bilaterally as cysts the largest measures 1 cm. There is no evidence of metastatic lesions in the abdomen and pelvis. Electronically Signed: Fran Starr MD at 10:03 EDT Tel , Service support ,
--- NOTE | 2018-03-04 13:29 | CT_ITS ---
STUDY: CT CHEST WITH CONTRAST REASON FOR EXAM: Female, 72 years old. Breast cancer RADIATION DOSAGE (If Supplied By Facility): CTDIvol = ( 12.50 ) mGy, DLP = ( 341.58 ) mGycm TECHNIQUE: Transaxial imaging was performed following intravenous administration of 100 ml of Isovue 300 contrast material. # of Images: 574 Individualized dose optimization techniques were used for this CT. COMPARISON: None. FINDINGS: Left chest Port-A-Cath with the tip at the superior cavoatrial junction. Right upper lobe 8 mm pulmonary nodule, appears calcified possible granuloma. Some atelectasis/scarring present. 3 mm right middle lobe pulmonary nodule. No focal consolidation. No pneumothorax. No pleural effusion. There is no demonstrated pleural abnormality. Normal heart and pericardium. There are calcifications of the coronary arteries. Mild atherosclerotic disease of the aorta. No aneurysm or dissection. No central pulmonary embolism. Nonspecific subcentimeter short axis mediastinal and hilar lymph nodes. There are multi-level degenerative changes of the thoracic spine. Surgical clips within the right breast region. Within this region there is a masslike structure appears somewhat spiculated measuring 2.3 cm. There is some dense breast tissue noted bilaterally. There is a right breast skin thickening present. The there are surgical clips within the right axilla. There are subcentimeter short axis lymph nodes within the bilateral axilla, nonspecific. Subcentimeter low-attenuation structures within the liver and spleen too small to characterize by CT criteria however statistically likely represent cysts. Please see dedicated report for CT abdomen and pelvis performed at the same time. CT/Chest WITH Contrast IMPRESSION: There is a right breast slightly spiculated masslike structure with adjacent surgical clips. This could represent a neoplastic process given patient's history. Recommend comparison to any prior studies or follow-up mammography/ultrasound. Nonspecific axillary and mediastinal/hilar lymph nodes. There is a calcified right upper lobe pulmonary nodule likely granuloma. There is a right middle lobe noncalcified small pulmonary nodule. Nonspecific. Could be sequela of prior infectious inflammatory process. However neoplasm or metastatic lesion cannot be totally excluded. Correlate with prior studies for stability. Please see dedicated CT abdomen and pelvis performed the same time for abdominal findings. Electronically Signed: Bill Melgar, at 3:55 EDT Tel , Service support ,
== END ==
PROVIDERS: Family Provider Internal Medicine; PCP Internal Medicine; Referring Provider Internal Medicine Medical Oncology; Visit Provider Internal Medicine Medical Oncology
DX: C50.411 Malignant neoplasm of upper-outer quadrant of right female breast (principal); Z79.899 Other long term (current) drug therapy
CPT/HCPCS: 71260; 74177; 80053; 85025; Q9967; A4216

== ENCOUNTER → 2018-11-22 | Outpatient (CLI) | payer MEDICARE, OTHER, SELFPAY ==
[2018-03-25 13:38] VITALS: BMI 26.9
[2018-10-12 13:27] VITALS: BMI 25.9
[2018-10-12 14:50] VITALS: BMI 25.9
--- NOTE | 2018-11-22 12:04 | BI_ITS ---
MAMMOGRAPHY - BILATERAL SCREENING REASON FOR EXAM: Female, 73 years old. Routine annual screening examination. PERTINENT HISTORY: Personal history of breast cancer. Prior right lumpectomy with chemotherapy and radiation therapy. TECHNIQUE: Digital bilateral breast dawit (3D mammographic acquisition) in the CC and MLO projections. 2-D mediolateral oblique (MLO) and craniocaudad (CC) views of both breasts were obtained. CAD: Full Field Digital Mammography with Computer Added Detection was performed. COMPARISON: Comparison is made with prior operative examination dated November 25, 2017. FINDINGS: Breast Composition: The breasts are heterogeneously dense, which may obscure small masses. Since prior study, the patient underwent a lumpectomy in the upper lateral portion of the right breast with resultant postsurgical scarring. No new mass lesion is seen. No clustered microcalcifications present. No other significant abnormalities are identified. BI/SCREEN MAMM (CAD) W/DAWIT BILAT IMPRESSION: Status post lumpectomy in the upper outer quadrant of the right breast with resultant postoperative scarring and postoperative changes of the breasts. Yearly follow-up mammogram recommended. (A) ASSESSMENT CATEGORY: BIRADS Category 2: Benign. A letter regarding these results will be sent to the patient by the facility within 30 days. Approximately 10% of breast cancers are not detected by mammography. A normal mammogram should not delay biopsy of a clinically suspicious abnormality. [id number] Electronically Signed: Michael Napoles, at 13:02 EDT , Service support ,
== END | disposition home or self-care (01) ==
LOC: OPBI 11:55
PROVIDERS: Family Provider Internal Medicine; PCP Internal Medicine; Referring Provider Internal Medicine Medical Oncology; Visit Provider Internal Medicine Medical Oncology
DX: C50.911 Malignant neoplasm of unspecified site of right female breast (principal); Z12.31 Encounter for screening mammogram for malignant neoplasm of breast
CPT/HCPCS: 77063; 77067

== ENCOUNTER → 2018-12-15 | Outpatient (CLI) | payer MEDICARE, OTHER, SELFPAY ==
[2018-03-25 13:38] VITALS: BMI 26.9
[2018-12-15 08:40] VITALS: BMI 26.4
== END | disposition home or self-care (01) ==
LOC: PSN 10:30
PROVIDERS: Family Provider Internal Medicine; PCP Internal Medicine; Referring Provider Internal Medicine Cardiovascular Disease; Visit Provider Internal Medicine Cardiovascular Disease
DX: R00.2 Palpitations (principal)
CPT/HCPCS: 93225; 93226

== ENCOUNTER → 2019-01-06 | Outpatient (CLI) | payer MEDICARE, OTHER, SELFPAY ==
[2018-03-25 13:38] VITALS: BMI 26.9
[2018-12-15 08:40] VITALS: BMI 26.4
--- NOTE | 2019-01-06 10:39 | ECHOD_ITS ---
Reason For Study: ARRHYTNMIA Procedure This was a 2D Doppler, Color Flow transthoracic echocardiogram. Exam performed in department. Left Ventricle Normal LV size. Left ventricular systolic function is normal. The estimated ejection fraction is 60 %. Stage 1 diastolic dysfunction. No regional wall motion abnormalities noted. Right Ventricle Normal RV size. Normal systolic function. Atria Normal left atrium. Normal right atrium. Mitral Valve Normal mitral valve. Mild (1+) mitral valve insufficiency. Tricuspid Valve Normal tricuspid valve. Mild tricuspid valve insufficiency. Aortic Valve Normal aortic valve. Pulmonic Valve Normal pulmonic valve. Great Vessels Normal aortic root. The pulmonary artery is normal size. Normal inferior vena cava. Pericardium/Pleural No pericardial effusion. MMode/2D Measurements & Calculations LVIDd: 4.3 cm IVSd: 0.92 cm Ao root diam: 2.9 cm LVIDs: 2.7 cm LVPWd: 0.89 cm RVDd: 2.9 cm FS: 37.6 % LAV(MOD-bp): 38.6 ml LA A4 area: 14.5 cm2 LA dimension(2D): 3.5 cm LAV(MOD-bp) Indexed: 23.9 ml/m2 LAV(MOD-sp2): 37.4 ml LAV(MOD-sp4): 37.9 ml RA A4 area: 10.6 cm2 Time Measurements MV dec time: 0.23 sec Doppler Measurements & Calculations MV E max epifanio: 60.7 cm/sec Lat Peak E' Epifanio: 4.6 cm/sec Med Peak E' Epifanio: 4.9 cm/sec MV A max epifanio: 93.6 cm/sec E/E' lat: 13.1 E/E' med: 12.4 MV E/A: 0.65 Ao V2 max: 124.3 cm/sec LV V1 max: 91.3 cm/sec PA V2 max: 78.8 cm/sec Ao max P.2 mmHg LV V1 max P.3 mmHg TR max epifanio: 228.6 cm/sec TR max P.9 mmHg Interpretation Summary Normal LV size. Left ventricular systolic function is normal. The estimated ejection fraction is 60 %. Stage 1 diastolic dysfunction. Mild (1+) mitral valve insufficiency. The global longitudinal strain = -19.3 % (normal). Ordering Physician: Jv Sanchez Referring Physician: Morena Chambers Performed By: Cheryl Deleon RDCS, RVT
== END | disposition home or self-care (01) ==
LOC: CVS 10:39
PROVIDERS: Family Provider Internal Medicine; PCP Internal Medicine; Referring Provider Internal Medicine Cardiovascular Disease; Visit Provider Internal Medicine Cardiovascular Disease
DX: R00.2 Palpitations (principal)
CPT/HCPCS: 93306

== ENCOUNTER → 2019-03-14 | Outpatient (CLI) | payer MEDICARE, OTHER, SELFPAY ==
[2018-03-25 13:38] VITALS: BMI 26.9
[2019-01-12 09:27] VITALS: BMI 26.4
[2019-02-01 13:37] VITALS: BMI 26.4
--- NOTE | 2019-03-14 07:32 | CT_ITS ---
STUDY: CT CHEST WITH CONTRAST REASON FOR EXAM: Female, 73 years old. Follow-up history of breast cancer RADIATION DOSAGE (If Supplied By Facility): CTDIvol = ( 10.31 ) mGy, DLP = ( 810.56 ) mGycm TECHNIQUE: Transaxial imaging was performed following intravenous administration of IV Isovue 300 100. Multiplanar coronal and sagittal images were reformatted. Individualized dose optimization techniques were used for this CT. COMPARISON: July 05, 2017 chest x-ray FINDINGS: In the right apex is a stable calcified granuloma measuring 7.5 mm. Deep to the right breast since the periphery of the right middle lobes areas fibrotic change that was not seen on prior study which may be related to a prior history of radiation therapy. Within the right middle lobe there is a small pulmonary nodule measuring 3.2 mm which is stable since prior study. There are no visualized new nodules or masses. There is no demonstrated pleural abnormality. There is a visualized thickened appearance of the right breast tissue that is similar to the prior study. There is a focus of density within the right breast tissue and several surgical clips. There are surgical clips in the right axilla. There is a lymph node in the right axilla that is measuring 6.5 x 7 mm, that is smaller than the prior study when it measured 1.0 x 0.6 cm. There is visualized coarse calcification in the left breast tissue stable since prior study. Normal heart and pericardium. Normal mediastinum. Normal hilar regions. Normal enhanced pulmonary arteries. Normal aorta arch and descending thoracic aorta. There are multi-level degenerative changes of the thoracic spine. There is a minimal hiatal hernia. CT/Chest WITH Contrast IMPRESSION: Relatively stable chest with exception of mild interstitial thickening/ fibrotic change in the periphery of the right middle lobe underlying the same level of the breast tissue which may represent pulmonary radiation changes allowing for any associated clinical history. Potentially this could represent subtle early atypical infiltrates. There is a stable small nodule within the right middle lobe. Recommend short-term interval follow-up study in 6 months to ensure stability and correlation with clinical exam. Electronically Signed: Kinga Mandujano MD at 21:52 EDT Tel , Service support ,
--- NOTE | 2019-03-14 07:32 | CT_ITS ---
STUDY: CT ABDOMEN AND PELVIS WITH CONTRAST REASON FOR EXAM: Female, 73 years old. Breast cancer follow-up RADIATION DOSAGE (If Supplied By Facility): CTDIvol = ( 10.31 ) mGy, DLP = ( 810.56 ) mGycm TECHNIQUE: Transaxial images were obtained from the dome of the diaphragm to the symphysis pubis with oral contrast. Oral ; IV Readi-CAT ; 100mL Isovue-300 100 was administered. Only coronal images were provided. Individualized dose optimization techniques were used for this CT. COMPARISON: March 04, 2018 CT abdomen and pelvis FINDINGS: The base of the lungs are clear. The remainder of the lungs of a described on the dedicated CT scan of the chest performed the same day. The visualized portions of the heart are within normal limits. Within the right hepatic lobe there is a stable 5.8 mm benign-appearing cyst image #16 and axial views. Normal gallbladder and extrahepatic biliary system. Normal spleen. Normal pancreas. Normal bilateral adrenal glands. There is a stable 8 mm right renal cyst. There is a smaller stable 3 mm right renal cyst. There is no evidence of hydronephrosis. There is persistent mild left pelviectasis. There is a stable 3.5 mm left renal cyst. The stomach is partially distended with contrast. There is a stable duodenal diverticulum image #37, measuring 1.1 cm. There is moderate stool in the colon. There is diverticulosis without visualized diverticulitis. The appendix is visualized and appears normal. There is trace calcification of the aorta. Normal inferior vena cava. There is trace thickening of the left-sided adrenal gland image #27 stable since prior study. Normal urinary bladder. There is absence of the uterus consistent with a prior hysterectomy. There is a small umbilical hernia containing fat. There are diffuse degenerative changes of the visualized lumbar spine. CT/Abdomen/Pelvis WITH Contrast IMPRESSION: Stable appearing CT scan abdomen and pelvis. Mild to moderate constipation. Diverticulosis. Stable hepatic cyst stable renal cysts. Status post hysterectomy. It should be noted that limited reconstructed images at the radiologist's workstation were performed in sagittal view. Although requested, Standard dedicated reconstructed imaging is not provided for review. Electronically Signed: Kinga Mandujano MD at 1:59 EDT Tel , Service support ,
[2019-03-14 07:46] LABS: CREATININE FINGERSTICK 0.6 mg/dL (0.55-1.02); EGFR FINGERSTICK > 60.0000 mL/min (>60)
== END | disposition home or self-care (01) ==
LOC: CT 07:31
PROVIDERS: Family Provider Internal Medicine; PCP Internal Medicine; Referring Provider Internal Medicine Medical Oncology; Visit Provider Internal Medicine Medical Oncology
DX: C50.411 Malignant neoplasm of upper-outer quadrant of right female breast (principal)
CPT/HCPCS: 71260; 74177; Q9967

== ENCOUNTER → 2019-11-25 | Outpatient (CLI) | payer MEDICARE, OTHER, SELFPAY ==
[2018-03-25 13:38] VITALS: BMI 26.9
[2019-10-13 13:22] VITALS: BMI 26.9
--- NOTE | 2019-11-25 11:55 | BI_ITS ---
MAMMOGRAPHY - BILATERAL SCREENING REASON FOR EXAM: Female, 74 years old. Routine annual screening examination. PERTINENT HISTORY: Personal history of breast cancer. Prior right lumpectomy with chemotherapy and radiation therapy. TECHNIQUE: Digital bilateral breast dawit (3D mammographic acquisition) in the CC and MLO projections. 2-D mediolateral oblique (MLO) and craniocaudad (CC) views of both breasts were obtained. CAD: Full Field Digital Mammography with Computer Added Detection was performed. COMPARISON: Comparison is made with prior examination dated November 22, 2018 and December 18, 2017. FINDINGS: Breast Composition: The breasts are heterogeneously dense, which may obscure small masses. There are no dominant masses or suspicious calcifications. Surgical clips are seen in the anterior upper lateral portion of the right breast resulting from prior lumpectomy. Postsurgical changes are seen and are stable. No other significant abnormalities are identified. There has been no significant change since the prior study. BI/SCREEN MAMM (CAD) W/DAWIT BILAT IMPRESSION: Stable bilateral screening mammogram. Yearly follow-up mammogram recommended. (A) ASSESSMENT CATEGORY: BIRADS Category 2: Benign. A letter regarding these results will be sent to the patient by the facility within 30 days. Approximately 10% of breast cancers are not detected by mammography. A normal mammogram should not delay biopsy of a clinically suspicious abnormality. [id number] Electronically Signed: Michael Napoles, at 12:57 EDT , Service support ,
== END | disposition home or self-care (01) ==
LOC: OPBI 11:55
PROVIDERS: PCP Internal Medicine; Referring Provider Internal Medicine Medical Oncology; Visit Provider Internal Medicine Medical Oncology
DX: Z12.31 Encounter for screening mammogram for malignant neoplasm of breast (principal); Z85.3 Personal history of malignant neoplasm of breast
CPT/HCPCS: 77063; 77067

== ENCOUNTER → 2020-10-01 07:39 | Outpatient (CLI) | payer MEDICARE, OTHER, SELFPAY ==
[2018-03-25 13:38] VITALS: BMI 26.9
[2019-10-13 13:22] VITALS: BMI 26.9
--- NOTE | 2020-10-01 07:41 | CT_ITS ---
STUDY: CT CHEST WITH CONTRAST REASON FOR EXAM: Female, 75 years old. Chest pain, known breast cancer RADIATION DOSAGE (If Supplied By Facility): CTDIvol = ( 11.65 ) mGy, DLP = ( 234.10 ) mGycm TECHNIQUE: Transaxial imaging was performed following intravenous administration of IV 100mL Isovue-300. Individualized dose optimization techniques were used for this CT. COMPARISON: 03/14/2019 FINDINGS: Stable calcified granuloma in the right upper lobe measuring 7.5 mm. Deep to the right breast since the periphery of the right middle lobes areas fibrotic change that was not seen on prior study which may be related to a prior history of radiation therapy. Within the right middle lobe there is a small pulmonary nodule measuring 3.2 mm which is stable since prior study. There are no visualized new nodules or masses. There is no demonstrated pleural abnormality. There is no demonstrated pleural abnormality. Normal heart and pericardium. Normal mediastinum. Normal hilar regions. Normal enhanced pulmonary arteries. Normal aorta arch and descending thoracic aorta. Stable skin thickening and postbiopsy changes in the right breast. There are multi-level degenerative changes of the thoracic spine. There is no demonstrated abnormality of the visualized upper abdomen. CT/Chest WITH Contrast IMPRESSION: Stable CT scan of the chest, no interval change since the previous study of 2018. Likely postradiation changes noted in the right breast and right middle lobe. No new suspicious noncalcified mass or nodule, no organized infiltrate or effusion Electronically Signed: Hank Means MD at 9:38 EDT , Service support ,
== END ==
PROVIDERS: PCP Internal Medicine; Referring Provider Internal Medicine Medical Oncology; Visit Provider Internal Medicine Medical Oncology
DX: C50.411 Malignant neoplasm of upper-outer quadrant of right female breast (principal)
CPT/HCPCS: 71260; Q9967

== ENCOUNTER → 2020-11-27 10:48 | Outpatient (CLI) | payer MEDICARE, OTHER, SELFPAY ==
[2018-03-25 13:38] VITALS: BMI 26.9
[2020-10-08 13:53] VITALS: BMI 26.9
--- NOTE | 2020-11-27 10:50 | BI_ITS ---
MAMMOGRAPHY - BILATERAL SCREENING REASON FOR EXAM: Female, 75 years old. Routine annual screening examination. PERTINENT HISTORY: Personal history of breast cancer. Prior right lumpectomy with chemotherapy and radiation therapy. TECHNIQUE: Digital bilateral breast dawit (3D mammographic acquisition) in the CC and MLO projections. 2-D mediolateral oblique (MLO) and craniocaudad (CC) views of both breasts were obtained. CAD: Full Field Digital Mammography with Computer Added Detection was performed. COMPARISON: Comparison is made with prior study dated 11/25/2019 and 11/22/2018. FINDINGS: Breast Composition: The breasts are heterogeneously dense, which may obscure small masses. There are no dominant masses or suspicious calcifications. The patient is status post lumpectomy in the upper outer quadrant of the right breast as well as right axillary nodes intervention. Stable postoperative changes. No other significant abnormalities are identified. There has been no significant change since the prior study. BI/SCRN MAMM (CAD)W/DAWIT BILAT IMPRESSION: Stable bilateral screening mammogram. Yearly follow-up mammogram recommended. (A) ASSESSMENT CATEGORY: BIRADS Category 2: Benign. A letter regarding these results will be sent to the patient by the facility within 30 days. Approximately 10% of breast cancers are not detected by mammography. A normal mammogram should not delay biopsy of a clinically suspicious abnormality. [id number] Electronically Signed: Michael Napoles MD at 12:41 EDT , Service support ,
== END ==
PROVIDERS: PCP Internal Medicine; Referring Provider Internal Medicine Medical Oncology; Visit Provider Internal Medicine Medical Oncology
DX: Z12.31 Encounter for screening mammogram for malignant neoplasm of breast (principal)
CPT/HCPCS: 77063; 77067

== ENCOUNTER → 2021-10-01 | Outpatient (CLI) | payer MEDICARE, OTHER, SELFPAY ==
[2018-03-25 13:38] VITALS: BMI 26.9
--- NOTE | 2021-10-01 08:08 | CT_ITS ---
STUDY: CT CHEST WITHOUT CONTRAST REASON FOR EXAM: Female, 76 years old. LUNG NODULE. History of breast cancer. RADIATION DOSAGE (If Supplied By Facility): CTDIvol = ( 10.24 ) mGy, DLP = ( 372.64 ) mGycm TECHNIQUE: Transaxial imaging was performed without the administration of intravenous contrast material. Individualized dose optimization techniques were used for this CT. COMPARISON: Comparison is made with prior study dated 10/01/2020. FINDINGS: CHEST Small bilateral axillary lymph nodes slightly more prominent on the left side. Stable post right breast biopsy changes. There is a 5.6 mm calcified granuloma in the right upper lobe. Stable 3 mm noncalcified nodule in the anterior right middle This is unchanged. Minimal residual scarring in the anterior aspect of the right middle lobe. There is no demonstrated pleural abnormality. Normal heart and pericardium. Normal mediastinum. Normal hilar regions. Normal unenhanced pulmonary arteries. Normal aorta arch and descending thoracic aorta. There are multi-level degenerative changes of the thoracic spine. Fatty infiltration of the liver. CT/Chest WITH Contrast IMPRESSION: Stable examination. Electronically Signed: Michael Napoles MD at 10:34 EDT ,
[2021-10-01 08:20] LABS: CREATININE FINGERSTICK < 0.9 mg/dL (0.55-1.02); EGFR FINGERSTICK > 60.0000 mL/min (>60)
== END | disposition home or self-care (01) ==
LOC: CT 08:03
PROVIDERS: PCP Internal Medicine; Referring Provider Internal Medicine Medical Oncology; Visit Provider Internal Medicine Medical Oncology
DX: R91.1 Solitary pulmonary nodule (principal); Z85.3 Personal history of malignant neoplasm of breast
CPT/HCPCS: 71260; Q9967

== ENCOUNTER → 2021-11-27 | Outpatient (CLI) | payer MEDICARE, OTHER, SELFPAY ==
[2018-03-25 13:38] VITALS: BMI 26.9
[2021-11-27 13:29] LABS: Anion Gap 1 (5-15); BUN 20 mg/dL (7-18); BUN/Creat Ratio 30.8 RATIO (10-20); Calcium,Total 9.3 mg/dL (8.5-10.1); Chloride 106 mmol/L (98-107); Creatinine, Serum 0.65 mg/dL (0.55-1.02); EST Glomerular Filtration Rate 94 mL/min (>60); Est Glom Filt Rate - Afr Amer 114 mL/min (>60); Glucose 89 mg/dL (74-106); Potassium 3.6 mmol/L (3.5-5.1); Sodium Level 139 mmol/L (136-145)
== END | disposition home or self-care (01) ==
PROVIDERS: PCP Internal Medicine; Referring Provider Nurse Practitioner Family; Visit Provider Nurse Practitioner Family
DX: R00.2 Palpitations (principal)
CPT/HCPCS: 36415; 80048

== ENCOUNTER → 2021-11-28 | Outpatient (CLI) | payer MEDICARE, OTHER, SELFPAY ==
[2018-03-25 13:38] VITALS: BMI 26.9
--- NOTE | 2021-11-28 09:56 | BI_ITS ---
MAMMOGRAPHY - BILATERAL SCREENING REASON FOR EXAM: Female, 76 years old. Routine annual screening examination. PERTINENT HISTORY: Personal history of breast cancer. Prior right lumpectomy with chemotherapy and radiation therapy. TECHNIQUE: Digital bilateral breast dawit (3D mammographic acquisition) in the CC and MLO projections. 2-D mediolateral oblique (MLO) and craniocaudad (CC) views of both breasts were obtained. CAD: Full Field Digital Mammography with Computer Added Detection was performed. COMPARISON: Comparison is made with prior study dated 11/27/2020 and 11/25/2019. FINDINGS: Breast Composition: The breasts are heterogeneously dense, which may obscure small masses. There are no dominant masses or suspicious calcifications. Once again, the patient is status post lumpectomy in the right upper outer quadrant as well as right axillary node dissection. Post surgical scarring is seen. Overlying skin thickening. No other significant abnormalities are identified. There has been no significant change since the prior study. BI/SCRN MAMM (CAD)W/DAWIT BILAT IMPRESSION: Stable bilateral screening mammogram. Yearly follow-up mammogram recommended. (A) ASSESSMENT CATEGORY: BIRADS Category 2: Benign. A letter regarding these results will be sent to the patient by the facility within 30 days. Approximately 10% of breast cancers are not detected by mammography. A normal mammogram should not delay biopsy of a clinically suspicious abnormality. [id number] Electronically Signed: Michael Napoles MD at 11:05 EDT ,
== END | disposition home or self-care (01) ==
LOC: OPBI 09:51
PROVIDERS: PCP Internal Medicine; Visit Provider Internal Medicine Medical Oncology
DX: Z12.31 Encounter for screening mammogram for malignant neoplasm of breast (principal); Z92.21 Personal history of antineoplastic chemotherapy; Z85.3 Personal history of malignant neoplasm of breast
CPT/HCPCS: 77063; 77067

== ENCOUNTER → 2021-12-10 | Outpatient (CLI) | payer MEDICARE, OTHER, SELFPAY ==
[2018-03-25 13:38] VITALS: BMI 26.9
== END | disposition home or self-care (01) ==
LOC: PSN 11:48
PROVIDERS: PCP Internal Medicine; Referring Provider Nurse Practitioner Family; Visit Provider Nurse Practitioner Family
DX: R00.2 Palpitations (principal)
CPT/HCPCS: 93225; 93226

== ENCOUNTER → 2021-12-16 | Outpatient (CLI) | payer MEDICARE, OTHER, SELFPAY ==
[2018-03-25 13:38] VITALS: BMI 26.9
--- NOTE | 2021-12-16 08:45 | ECHODONC_ITS ---
Reason For Study: PALPITATIONS Procedure This was a 2D Doppler, Color Flow transthoracic echocardiogram. Myocardial strain analysis was performed in this exam to aid in the assessment of cardiac function. Exam performed in department. Left Ventricle Normal left ventricle. Left ventricular systolic function is normal. The estimated ejection fraction is 55 %. Stage 1 diastolic dysfunction. No regional wall motion abnormalities noted. Right Ventricle Normal RV size. Normal systolic function. Atria Normal left atrium. Normal right atrium. Tricuspid Valve Normal tricuspid valve. Mild tricuspid valve insufficiency. Pulmonary artery systolic pressure is 27 mmHg. Pulmonic Valve Normal pulmonic valve. Great Vessels Normal aortic root. The pulmonary artery is normal size. Normal inferior vena cava. Pericardium/Pleural No pericardial effusion. MMode/2D Measurements & Calculations LVIDd: 4.3 cm IVSd: 0.89 cm Ao root diam: 2.4 cm LVIDs: 2.6 cm LVPWd: 0.76 cm RVDd: 2.6 cm FS: 40.5 % LAV(MOD-sp4): 31.7 ml LA dimension(2D): 3.6 cm LA A4 area: 12.6 cm2 RA A4 area: 9.1 cm2 Time Measurements MV dec time: 0.29 sec Doppler Measurements & Calculations MV E max epifanio: 50.3 cm/sec Lat Peak E' Epifanio: 5.2 cm/sec Med Peak E' Epifanio: 8.3 cm/sec MV A max epifanio: 79.8 cm/sec E/E' lat: 9.7 E/E' med: 6.0 MV E/A: 0.63 Ao V2 max: 159.9 cm/sec LV V1 max: 108.8 cm/sec MV dec slope: 176.1 cm/sec2 Ao max P.3 mmHg LV V1 max P.8 mmHg Ao V2 mean: 106.6 cm/sec LV V1 mean P.4 mmHg Ao mean P.2 mmHg LV V1 mean: 71.3 cm/sec Ao V2 VTI: 30.9 cm LV V1 VTI: 21.9 cm PA V2 max: 91.3 cm/sec TR max epifanio: 242.0 cm/sec PI dec slope: 103.4 cm/sec2 TR max P.4 mmHg ECHO/ONC Echo Complete Interpretation Summary Normal left ventricle. Left ventricular systolic function is normal. The estimated ejection fraction is 55 %. Stage 1 diastolic dysfunction. Pulmonary artery systolic pressure is 27 mmHg. Ordering Physician: Justin Scruggs Referring Physician: Giles Berg; Parth Walton Performed By: Cheryl Deleon, MATTY, RVT
== END | disposition home or self-care (01) ==
LOC: CVS 08:44
PROVIDERS: PCP Internal Medicine; Referring Provider Nurse Practitioner Family; Visit Provider Nurse Practitioner Family
DX: R00.2 Palpitations (principal); C50.911 Malignant neoplasm of unspecified site of right female breast
CPT/HCPCS: 93306; 93356

== ENCOUNTER 2022-11-27 13:12 | Emergency (ER) | payer MEDICARE, SELFPAY ==
[2018-03-25 13:38] VITALS: BMI 26.9
[2022-11-27 13:13] VITALS: BP 168/66; PULSE 88; RESP 16; TEMP 36.6; O2SAT 98; BMI 27.6
--- NOTE | 2022-11-27 13:27 | EKG12_ITS ---
Test Reason : PALP Blood Pressure : / mmHG Vent. Rate : 072 BPM Atrial Rate : 072 BPM P-R Int : 144 ms QRS Dur : 074 ms QT Int : 390 ms P-R-T Axes : 066 003 038 degrees QTc Int : 427 ms Normal sinus rhythm Normal ECG Confirmed by GALE SCHWAB, JOY ([id number]), advertising editor PARISA CARL ([id number]) on 11/28/2022 12:56:46 PM Referred By: Confirmed By:JOY BEASLEY MD
--- NOTE | 2022-11-27 13:30 | EX.ED.DYSGE1 ---
HPI <HINA Aquino - Last Filed: 11/27/22 14:38> History of Present Illness Chief Complaint: Palpitations Narrative Narrative: 76-year-old female with PMH of hypothyroidism, PVCs presents with increased frequency of palpitations. She states she started having a lot of PVCs after she had chemotherapy for breast cancer 5 years ago. She gets a weird and tired sensation and then checks her pulse and can tell that her heart is skipping a beat. She does not actually feel the palpitations in her chest and denies chest pain, shortness of breath, nausea or vomiting. She has seen the [facility] and had a normal stress echo. She was offered a beta-emmanuel but declined because she was not very symptomatic. However over the last 4 days she has felt more tired and when feeling her pulse can tell she is having frequent PVCs. She has been stable on the same levothyroxine dose for the last 2 years. She denies caffeine or drug or alcohol use. No recent illness. She does states she's had increased stress recently with multiple family members undergoing medical problems. PFSH <HINA Aquino - Last Filed: 11/27/22 14:38> PFS Medical History Anemia associated with chemotherapy biateral cataract surgery Breast cancer, right breast Breast mass, right Chemotherapy induced neutropenia Diverticulitis Diverticulitis History of broken nose History of right breast cancer Hyperlipidemia Hypothyroid Leukocytosis Lung nodules Malignant neoplasm of upper-outer quadrant of right female breast Palpitations Home Medications calcium citrate 315 mg calcium-vitamin D3 6.25 mcg (250 unit) tablet (Citracal + Vitamin D Maximum) 2 tab PO BID 10/15/17 [History Last Taken Unknown] loratadine 10 mg tablet (Claritin) 10 mg PO QDAY 10/15/17 [History Last Taken Unknown] multivitamin 1 cap PO QAM 10/15/17 [History Last Taken Unknown] sennosides 8.6 mg tablet (Senna Lax) 8.6 mg PO DAILY 10/15/17 [History Last Taken Unknown] simvastatin 20 mg tablet 20 mg PO QPM 10/15/17 [History Last Taken Unknown] fluticasone propionate 50 mcg/actuation nasal spray,suspension (Flonase Allergy Relief) 1 spray intranasal DAILY 11/27/21 [History Last Taken Unknown] levothyroxine 75 mcg tablet 75 mcg PO DAILY 11/27/21 [History Last Taken Unknown] metoprolol succinate 25 mg tablet,extended release 24 hr 25 mg PO DAILY #30 tabs 11/27/22 [Rx Last Taken Unknown] Allergy/AdvReac Type Severity Reaction Status Date / Time ciprofloxacin [From Cipro] Allergy Intermediate Anaphylaxis Verified 11/27/22 13:16 erythromycin base Allergy Mild Unknown Verified 11/27/22 13:16 Family History Father Heart disease Mother Hypertension Cancer CAD (coronary artery disease) Surgical History H/O colonoscopy H/O tubal ligation H/O: hysterectomy History of breast biopsy History of lumpectomy of right breast (11/2017) Social History Smoking Status: Never smoker alcohol intake: never substance use type: does not use caffeine: No ROS <HINA Aquino - Last Filed: 11/27/22 14:38> ROS ED ROS Narrative Constitutional: Negative for fever, chills, malaise. CVS: Negative for chest pain, syncope. Respiratory: Negative for shortness of breath, cough, orthopnea. GI: Negative for abdominal pain, nausea, vomiting, melena, hematochezia. Neuro: Negative for headache. EXAM <HINA Aquino - Last Filed: 11/27/22 14:38> Physical Exam Narrative Exam Narrative: CONST: Patient sitting in no acute distress. EYES: Normal inspection. NECK: Normal inspection. RESP: No respiratory distress, CTAB. CVS: Regular rate and rhythm, no murmur, no gallop. SKIN: Color normal, no rash, warm, dry, intact. EXTREMITIES: Normal appearance, no pedal edema. NEURO: Oriented x4. PSYCH: Normal affect. Const Vital Signs: 11/27/22 13:13 11/27/22 13:32 Temperature 97.8 F Temperature Source Temporal Pulse Rate 88 Respiratory Rate 16 Respiratory Effort Normal Non-Labored Blood Pressure 168/66 H Blood Pressure Mean 100 Pulse Ox 98 Oxygen Delivery Method Room Air <Dr. Ghulam Baker MD - Last Filed: 11/27/22 14:30> Physical Exam Const Vital Signs: 11/27/22 13:13 11/27/22 13:32 Temperature 97.8 F Temperature Source Temporal Pulse Rate 88 Respiratory Rate 16 Respiratory Effort Normal Non-Labored Blood Pressure 168/66 H Blood Pressure Mean 100 Pulse Ox 98 Oxygen Delivery Method Room Air [facility] <HINA Aquino - Last Filed: 11/27/22 14:38> [facility] Narrative Medical decision making narrative: History gathered from: Patient and Patient with history of frequent PVCs presents with increased palpitations. She appears well and nontoxic. BP is 168/66 with otherwise normal vital signs. During my examination heart is regular rate and rhythm with maybe 2-3 PVCs on the radiographer cardiac catheterization over several minutes and the rest of her exam is benign. CBC and BMP are unremarkable. EKG is sinus rhythm with no ectopy and troponin is 6. TSH is within therapeutic range at 1.99. Patient would like to trial metoprolol for her symptoms and was prescribed Toprol XR 25 mg once daily to take in the morning. She also supposed to schedule an upcoming Holter monitor through the [facility] and this was able to be placed in the ED and she will follow-up with Dr. Sanchez's office. She was discharged in stable condition. Differential: Benign PVCs, arrhythmia, thyroid abnormality, anemia, electrolyte abnormality Lab Data Attestation: I reviewed the patient's lab results. Labs: Laboratory Results - last 24 hr 11/27/22 13:40 WBC 6.1 RBC 4.13 L Hgb 13.2 Hct 40.9 MCV 99.0 MCH 32.0 MCHC 32.3 RDW Std Deviation 43.9 RDW Coeff of Ashley 12.0 Plt Count 172 MPV 11.4 Immature Gran % (Auto) 0.300 Neut % (Auto) 59.3 Lymph % (Auto) 28.8 [place] % (Auto) 8.3 Eos % (Auto) 2.5 Baso % (Auto) 0.8 Absolute Neuts (auto) 3.6 Absolute Lymphs (auto) 1.76 Nucleated RBC % 0 Sodium 140 Potassium 4.1 Chloride 106 Carbon Dioxide 30.0 Anion Gap 4 L BUN 22 H Creatinine 0.81 Estim Creat Clear Calc 43.89 Est GFR (MDRD) Af Amer 88 Est GFR (MDRD) Non-Af 73 BUN/Creatinine Ratio 27.2 H Glucose 91 Calcium 9.1 Troponin I High Sens 6 TSH 1.99 EKG Initial EKG: Attestation: I personally reviewed and interpreted this EKG as follows: Interpretation: Sinus Rhythm and No Acute Injury Pattern Comments: Normal sinus rhythm at 72 bmp, no ectopy or ischemic changes DC interval 144 ms, QRS duration 74 ms, QTc 427 ms <Dr. Ghulam Baker MD - Last Filed: 11/27/22 14:30> MDM Lab Data Labs: Laboratory Results - last 24 hr 11/27/22 13:40 WBC 6.1 RBC 4.13 L Hgb 13.2 Hct 40.9 MCV 99.0 MCH 32.0 MCHC 32.3 RDW Std Deviation 43.9 RDW Coeff of Ashley 12.0 Plt Count 172 MPV 11.4 Immature Gran % (Auto) 0.300 Neut % (Auto) 59.3 Lymph % (Auto) 28.8 [place] % (Auto) 8.3 Eos % (Auto) 2.5 Baso % (Auto) 0.8 Absolute Neuts (auto) 3.6 Absolute Lymphs (auto) 1.76 Nucleated RBC % 0 Sodium 140 Potassium 4.1 Chloride 106 Carbon Dioxide 30.0 Anion Gap 4 L BUN 22 H Creatinine 0.81 Estim Creat Clear Calc 43.89 Est GFR (MDRD) Af Amer 88 Est GFR (MDRD) Non-Af 73 BUN/Creatinine Ratio 27.2 H Glucose 91 Calcium 9.1 Troponin I High Sens 6 TSH 1.99 Treatment and Re-Evaluation Comments:: I have personally performed a face to face assessment of the patient and have reviewed the CAMILO Note. I performed a substantive portion of the visit including all aspects of the following. My garcia findings include: History is frequent palpitations over the past week without chest discomfort, dyspnea, a little lightheaded this morning which brought her here; talk to cardiology and is supposed to get set up with a 24-hour Holter and then follow-up with cardiology GLORIA. Declined previous offer for metoprolol for this purpose but now worse in the past week. Exam is well-appearing, no acute distress, heart regular with occasional PVC on the monitor correlating with occasional skipped auscultation gupta, lungs clear to auscultation no peripheral edema or calf tenderness. Medical Decison Making labs and TSH, follow-up with 24-hour Holter and metoprolol succinate 25 mg once daily if okay for discharge Other additions or changes: [None] Discharge Plan Triage Chief Complaint: Palpitations ED Midlevel Provider: Tomasa Winter ED Provider: Ghulam Baker Dx/Rx/DC Orders Clinical Impression: Palpitations, Frequent PVCs Instructions: ED Palpitations Prescriptions: New metoprolol succinate 25 mg tablet extended release 24 hr 25 mg PO DAILY Qty: 30 0RF No Action simvastatin 20 mg tablet 20 mg PO QPM loratadine [Claritin] 10 mg tablet 10 mg PO QDAY sennosides [Senna Lax] 8.6 mg tablet 8.6 mg PO DAILY calcium citrate-vitamin D3 [Citracal + D Maximum] 315-250 mg-unit tablet 2 tab PO BID multivitamin capsule capsule 1 cap PO QAM levothyroxine 75 mcg tablet 75 mcg PO DAILY fluticasone propionate [Flonase Allergy Relief] 50 mcg/actuation spray,suspension 1 spray intranasal DAILY Rx Instructions: administer into each nostril Primary Care Provider: Giles Berg Referrals: Giles Berg MD [Primary Care Provider] - Jv Sanchez MD [Med Staff - Active Staff] - As soon as possible (after turning in Holter) Disposition Disposition: Home, Self Care
[2022-11-27 13:48] LABS: Absolute Lymphocyte Count 1.76 X10^3/uL (0.83-4.51); Absolute Neutrophil Count 3.6 X10^3/uL (2.0-7.7); Basophil# 0.05 X10^3/uL; Basophil% 0.8 % (0-1); Eosinophil# 0.15 X10^3/uL; Eosinophils% 2.5 % (0-5); Hematocrit 40.9 % (37-47); Hemoglobin 13.2 g/dL (12.0-15.0); Lymphocyte # 1.76 X10^3/ul (0.83-4.51); Lymphocyte % 28.8 % (19-41); Mean Corp Hgb Conc 32.3 g/dL (32-36); Mean Platelet Vol. 11.4 fl (6.2-12.0); Monocyte# 0.51 X10^3/uL; Monocyte% 8.3 % (0-10); NRBC Flagged by Analyzer 0 % (0-5); Neutrophil # 3.62 X10^3/uL (2.7-7.7); Neutrophil % 59.3 % (47-70); Platelet Count 172 K/mm3 (150-450); RBC Distribution Width SD 43.9 fl (35.1-43.9); Red Blood Count 4.13 M/mm3 (4.2-5.4); White Blood Count 6.1 K/mm3 (4.4-11.0)
[2022-11-27 14:14] LABS: Anion Gap 4 (5-15); BUN 22 mg/dL (7-18); BUN/Creat Ratio 27.2 RATIO (10-20); Calcium,Total 9.1 mg/dL (8.5-10.1); Chloride 106 mmol/L (98-107); Creatinine, Serum 0.81 mg/dL (0.55-1.02); EST Glomerular Filtration Rate 73 mL/min (>60); Est Glom Filt Rate - Afr Amer 88 mL/min (>60); Estimated Creatinine Clearance 43.89 ml/min; Glucose 91 mg/dL (74-106); Potassium 4.1 mmol/L (3.5-5.1); Sodium Level 140 mmol/L (136-145); Thyroid Stim Hormone (TSH) 1.99 uIU/mL (0.358-3.74); Troponin-I HS 6 pg/mL (3.0-54.0)
[2022-11-27] MEDS: Metoprolol Tartrate 25 MG Tablet 12.5 MG PO (15:10)
== END 2022-11-27 15:19 | disposition home or self-care (01) ==
PROVIDERS: Physician Assistant; Emergency Provider Emergency Medicine; PCP Internal Medicine; Visit Provider Emergency Medicine
DX: R00.2 Palpitations (principal); E78.5 Hyperlipidemia, unspecified; Z79.899 Other long term (current) drug therapy
CPT/HCPCS: 99284; 80048; 84443; 84484; 85025; 93005

== ENCOUNTER 2022-11-27 14:39 | Outpatient (CLI) | payer MEDICARE, SELFPAY ==
[2018-03-25 13:38] VITALS: BMI 26.9
== END 2022-11-27 23:59 | disposition home or self-care (01) ==
LOC: CVS 14:40
PROVIDERS: PCP Internal Medicine; Referring Provider Internal Medicine Cardiovascular Disease; Visit Provider Internal Medicine Cardiovascular Disease
DX: R00.2 Palpitations (principal); E78.5 Hyperlipidemia, unspecified; Z79.899 Other long term (current) drug therapy
CPT/HCPCS: 80048; 84443; 84484; 85025; 93005; 93225; 93226; 99284

== ENCOUNTER → 2022-12-18 | Outpatient (CLI) | payer MEDICARE, SELFPAY ==
[2018-03-25 13:38] VITALS: BMI 26.9
--- NOTE | 2022-12-18 09:47 | BI_ITS ---
MAMMOGRAPHY - BILATERAL SCREENING REASON FOR EXAM: Female, 77 years old. Routine annual screening examination. PERTINENT HISTORY: Personal history of breast cancer. Prior right lumpectomy with chemotherapy and radiation therapy. History of daughter with breast cancer. TECHNIQUE: Digital bilateral breast dawit (3D mammographic acquisition) in the CC and MLO projections. 2-D mediolateral oblique (MLO) and craniocaudad (CC) views of both breasts were obtained. CAD: Full Field Digital Mammography with Computer Added Detection was performed. COMPARISON: Comparison is made with prior study dated November 28, 2021 and November 27, 2020. FINDINGS: Breast Composition: The breasts are heterogeneously dense, which may obscure small masses. There are no dominant masses or suspicious calcifications. With again, the patient is status post lumpectomy in the upper outer quadrant of the right breast. Stable postoperative changes are seen. Surgical clips are also seen in the right axilla. No other significant abnormalities are identified. There has been no significant change since the prior study. BI/SCRN MAMM (CAD)W/DAWIT BILAT IMPRESSION: Stable bilateral screening mammogram. Yearly follow-up mammogram recommended. (A) ASSESSMENT CATEGORY: BIRADS Category 2: Benign. A letter regarding these results will be sent to the patient by the facility within 30 days. Approximately 10% of breast cancers are not detected by mammography. A normal mammogram should not delay biopsy of a clinically suspicious abnormality. [id number] Electronically Signed: Michael Napoles MD at 11:14 EDT ,
== END | disposition home or self-care (01) ==
LOC: OPBI 09:46
PROVIDERS: PCP Internal Medicine; Referring Provider Internal Medicine Medical Oncology; Visit Provider Internal Medicine Medical Oncology
DX: Z12.31 Encounter for screening mammogram for malignant neoplasm of breast (principal); Z85.3 Personal history of malignant neoplasm of breast; Z80.3 Family history of malignant neoplasm of breast
CPT/HCPCS: 77063; 77067

== ENCOUNTER → 2023-12-22 | Outpatient (CLI) | payer MEDICARE, SELFPAY ==
[2018-03-25 13:38] VITALS: BMI 26.9
--- NOTE | 2023-12-22 09:02 | BI_ITS ---
MAMMOGRAPHY - BILATERAL SCREENING REASON FOR EXAM: Female, 78 years old. Routine annual screening examination. PERTINENT HISTORY: Personal history of breast cancer. Prior right lumpectomy with chemotherapy and radiation. Daughter with breast cancer. Aunt with breast cancer. TECHNIQUE: Digital bilateral breast dawit (3D mammographic acquisition) in the CC and MLO projections. 2-D mediolateral oblique (MLO) and craniocaudad (CC) views of both breasts were obtained. CAD: Full Field Digital Mammography with Computer Added Detection was performed. COMPARISON: Comparison is made with prior study December 18, 2022 and November 28, 2021. FINDINGS: Breast Composition: The breasts are heterogeneously dense, which may obscure small masses. There are no dominant masses or suspicious calcifications. Once again, the patient is status post lumpectomy in the upper outer quadrant of the right breast with resultant postoperative scarring and breast deformity. Surgical clips are also seen in the right axilla. No other significant abnormalities are identified. There has been no significant change since the prior study. BI/SCRN MAMM (CAD)W/DAWIT BILAT IMPRESSION: Stable bilateral screening mammogram. Yearly follow-up mammogram recommended. (A) ASSESSMENT CATEGORY: BIRADS Category 2: Benign. A letter regarding these results will be sent to the patient by the facility within 30 days. Approximately 10% of breast cancers are not detected by mammography. A normal mammogram should not delay biopsy of a clinically suspicious abnormality. [id number] Electronically Signed: Michael Napoles MD at 10:07 EDT ,
== END | disposition home or self-care (01) ==
LOC: OPBI 09:02
PROVIDERS: PCP Internal Medicine; Referring Provider Internal Medicine Medical Oncology; Visit Provider Internal Medicine Medical Oncology
DX: Z12.31 Encounter for screening mammogram for malignant neoplasm of breast (principal); Z85.3 Personal history of malignant neoplasm of breast
CPT/HCPCS: 77063; 77067

== ENCOUNTER → 2024-12-22 | Outpatient (CLI) | payer MEDICARE, SELFPAY ==
[2018-03-25 13:38] VITALS: BMI 26.9
--- NOTE | 2024-12-22 09:48 | BI_ITS ---
EXAM: SCRN MAMM (CAD)W/DAWIT BILAT DATE: 12/22/2024 CLINICAL HISTORY: F, Age 79 y/o , SCREENING Personal history of breast cancer. Prior right lumpectomy with chemotherapy and radiation therapy. Daughter with breast cancer. Aunt with breast cancer. TECHNIQUE: SCRN MAMM (CAD)W/DAWIT BILAT COMPARISON: Prior exam(s) dated December 22, 2023.. FINDINGS: TISSUE DENSITY: The breasts are heterogeneously dense, which may obscure small masses. Bilateral Breast Mammographic Findings: No significant masses, calcifications or other abnormalities are identified. Patient is status post lumpectomy in the upper lateral anterior aspect of the right breast with resultant postoperative scarring. Surgical clips are seen in the right axilla. BI/SCRN MAMM (CAD)W/DAWIT BILAT IMPRESSION: Stable examination. OVERALL FINAL ASSESSMENT BI-RADS 2: BENIGN RECOMMENDATION: Routine annual follow-up in 1 Year A letter with findings and recommendations will be mailed to the patient. Reading Location: [facility]
--- OUTSIDE RECORDS SUMMARY | 2024-12-22 11:40 | XMS RPT_ITS | CCD ---
Author Organization [facility] ion Partnership [facility] Care Team Providers Care Manager Of Compliance Name Role Phone Dr. Johan Berg Primary Care Provider [phone]. Johan Berg Referring Provider Dr. Parth Walton Attending Provider Roof GOSPEL SINGER, GOSPEL SINGER-Mikel Holly Attending Provider Dr. Jv Sanchez Attending Provider [phone] SELF, SELF Referring Unavailable JOHAN BERG Primary Care Unavailable CHICHI CHAUHAN Attending Unavailable JOHAN BERG Primary Care Unavailable Dr. Johan Berg Primary Care Provider Dr. Johan Berg Referring Provider [phone] Dr. Parth Walton Attending Provider Gary SANTAMARIA, PA Sandra Krishna Attending Provider Roof GOSPEL SINGER, DAVEY-Mikel Holly Attending Provider DR JOHAN BERG MD Primary Care Physician JOHAN BERG MD Consulting Unavailable JOHAN BERG MD Primary Care Unavailable JOHAN BERG MD Attending Unavailable JOHAN BERG MD Admitting Unavailable PROVIDER, UNKNOWN Consulting Unavailable PROVIDER, UNKNOWN Consulting Unavailable PROVIDER, UNKNOWN Consulting Unavailable JOHAN BERG MD Consulting Unavailable GERARD, TIERNEY T Primary Care Unavailable GERARD, TIERNEY T Attending Unavailable GERARD, TIERNEY T Admitting Unavailable PROVIDER, UNKNOWN Consulting Unavailable PROVIDER, UNKNOWN Consulting Unavailable PROVIDER, UNKNOWN Consulting Unavailable JOHAN BERG MD Consulting Unavailable GERARD, TIERNEY T Primary Care Unavailable GERARD, TIERNEY T Attending Unavailable GERARD, TIERNEY T Admitting Unavailable PROVIDER, UNKNOWN Consulting Unavailable PROVIDER, UNKNOWN Consulting Unavailable PROVIDER, UNKNOWN Consulting Unavailable JOHAN BERG MD Consulting Unavailable JOHAN BERG MD Primary Care Unavailable JOHAN BEGR MD Attending Unavailable JOHAN BERG MD Admitting Unavailable PROVIDER, UNKNOWN Consulting Unavailable PROVIDER, UNKNOWN Consulting Unavailable PROVIDER, UNKNOWN Consulting Unavailable JOHAN BERG MD Consulting Unavailable COOK, LUIS PA%C Primary Care Unavailable COOK, LUIS PA%C Attending Unavailable COOK, LUIS PA%C Admitting Unavailable PROVIDER, UNKNOWN Consulting Unavailable PROVIDER, UNKNOWN Consulting Unavailable PROVIDER, UNKNOWN Consulting Unavailable JOHAN BERG MD Consulting Unavailable RAEANN, MADELINE Primary Care Unavailable RAEANN, MADELINE Attending Unavailable RAEANN, MADELINE Admitting Unavailable PROVIDER, UNKNOWN Consulting Unavailable PROVIDER, UNKNOWN Consulting Unavailable PROVIDER, UNKNOWN Consulting Unavailable JOHAN BERG MD Consulting Unavailable JOHAN BERG MD Primary Care Unavailable JOHAN BERG MD Attending Unavailable JOHAN BERG MD Admitting Unavailable PROVIDER, UNKNOWN Consulting Unavailable PROVIDER, UNKNOWN Consulting Unavailable PROVIDER, UNKNOWN Consulting Unavailable JOHAN BERG MD Consulting Unavailable JOHAN BERG MD Primary Care Unavailable JOHAN BERG MD Attending Unavailable JOHAN BERG MD Admitting Unavailable PROVIDER, UNKNOWN Consulting Unavailable PROVIDER, UNKNOWN Consulting Unavailable PROVIDER, UNKNOWN Consulting Unavailable LUIS PARNELL PA-C Attending Unavailable DR JOHAN BERG MD Primary Care Unavailable DR JOHAN BERG MD Primary Care Unavailable LUIS PARNELL PA-C Attending Unavailable Dr. Johan Berg MD Primary Care Provider Dr. Johan Berg MD Referring Provider [phone] Dr. Parth Walton MD Attending Provider Dr. Tevin Lange MD Referring Provider Morena Butreese Primary Care Unavailable Parth Walton Referring Unavailable Parth Walton Attending Unavailable Johan Berg Primary Care Unavailable Parth Walton Referring Unavailable Parth Walton Attending Unavailable Parth Walton Attending Unavailable Tevin Lange Referring Unavailable Morena Butreese Primary Care Unavailable Johan Berg Referring Unavailable Morena, Butros Primary Care Unavailable Parth Walton Attending Unavailable Allergies Allergy Classification Reported Allergen(s) Allergy Type Date of Onset Reaction(s) Facility (10 sources) Ciprofloxacin; Translations: [ciprofloxacin] Drug Allergy 1 Anaphylaxis, arrhythmias [facility] Comment on above: IRREGLULAR HEART ANNEL T (10 sources) Erythromycin; Translations: [erythromycin] Drug Allergy 1 Unknown, not specified [facility] (1 source) Ciprofloxacin Drug Allergy [facility] (1 source) Erythromycin Drug Allergy [facility] (1 source) Ciprofloxacin Drug Allergy 5 [facility] (1 source) Erythromycin Drug Allergy 5 [facility] Medications Current Medications Medication Drug Class(es) Dates Sig (Normalized) Sig (Original) atorvastatin 20 mg oral tablet (2 sources) HMG-CoA Reductase Inhibitor Start: 05-08-2023 take 1 tablet by mouth at bedtime Atorvastatin 20 mg tablet Active 20 mg PO AT BEDTIME October 01, 2023 12:00am calcium citrate 1500 mg / cholecalciferol 250 unt oral tablet (9 sources) Vitamin D Start: 10-15-2017 Calcium Citrate-Vitamin D3 (Citracal + D Maximum) 315-250 mg-unit tablet Active 2 {tbl} PO TWICE A DAY October 15, 2017 12:00am 24 hr dilTIAZem hydrochloride 120 mg extended release oral capsule (2 sources) Calcium Channel Efren Start: 12-18-2022 take 1 capsule by mouth once daily Diltiazem Hcl 120 mg capsule,extended release 24hr Active 120 mg PO DAILY December 18, 2022 12:00am DilTIAZem (Eqv-Cardizem CD) 180 mg/24 hours oral capsule, extended release (1 source) Start: 04-01-2024 DilTIAZem (Eqv-Cardizem CD) 180 mg/24 hours oral capsule, extended release Dose : 180 mg = 1 cap(s), Oral, qDay, # 30 cap(s), 11 Refill(s), Pharmacy: [id number], 155, cm, 04/01/24 13:37:00 EST, Height, kg, 04/01/24 13:37:00 EST, Dosing Weight Start Date: 04/01/24 Status: Ordered fluticasone propionate 0.05 mg/actuat metered dose nasal spray (17 sources) Corticosteroid Start: 10-15-2017 End: 11-27-2021 take 50 ug nasal route once daily Fluticasone Propionate (Flonase Allergy Relief) 50 mcg/actuation spray,suspension Active 1 NMA INTRANASAL DAILY November 27, 2021 12:00am administer into each nostril Start: 10-15-2017 End: 11-27-2021 take 1 spray(s) nasal route once daily Fluticasone Propionate (Flonase Allergy Relief) 50 mcg/actuation spray,suspension Active 1 SPRAY INTRANASAL DAILY November 27, 2021 12:00am administer into each nostril levothyroxine sodium 0.075 mg oral tablet (18 sources) l-Thyroxine Start: 05-08-2023 levothyroxine 75 mcg (0.075 mg) oral tablet Dose : 75 mcg = 1 tab(s), Oral, qDay, # 90 tab(s), 0 Refill(s) Start Date: 05/08/23 Status: Ordered Start: 11-27-2021 take 1 tablet by mercedes th once daily Levothyroxine 75 mcg tablet Active 75 ug PO DAILY November 27, 2021 12:00am Start: 10-15-2017 End: 11-27-2021 take 1 capsule by mouth once daily Levothyroxine 50 mcg capsule Discontinued 50 ug PO daily October 15, 2017 12:00am November 27, 2021 11:30am loratadine 10 mg oral capsul e (10 sources) Start: 05-08-2023 loratadine 10 mg oral capsule Dose : 10 mg = 1 cap(s), Oral, qDay, # 40 cap(s), 0 Refill(s) Start Date: 05/08/23 Status: Ordered Start: 10-15-2017 take 1 tablet by mercedes th once daily Loratadine (Claritin) 10 mg tablet Active 10 mg PO daily October 15, 2017 12:00am multivitamin capsule (8 sources) Start: 10-15-2017 take 1 capsule by mouth once daily in the morning multivitamin capsule Active 1 CAP PO EVERY MORNING October 15, 2017 10:07am Start: 10-15-2017 take 1 capsule by mo okh once daily in the morning multivitamin capsule Active 1 CAP PO EVERY MORNING October 15, 2017 12:00am Multivitamin capsule (1 source) Start: 10-15-2017 Multivitamin c apsule Active 1 NMA PO EVERY MORNING October 15, 2017 12:00am sennosides, detention 8.6 mg oral tablet (10 sources) Start: 10-15-2017 take 1 mg by mouth once daily at bedtime senna (sennosides) 8.6 mg oral tablet mg = tab(s), Oral, qHS, 0 Refill(s) Start Date: 05/08/23 Status: Ordered Completed/Discontinued Medications Medication Drug Class(es) Dates Sig (Normalized) Sig (Original) atenolol 25 mg oral tablet (2 sources) beta-Adrenergic Efren Start: 12-04-2022 End: 12-18-2022 Atenolol 25 mg tablet Discontinued 12.5 mg PO DAILY December 04, 2022 12:00am December 18, 2022 10:39am Start: 12-04-2022 End: 12-18-2022 take 12.5 mg by mouth once daily Atenolol Discontinued 12.5 MG PO DAILY December 04, 2022 12:00am December 18, 2022 10:39am bromfenac 0.75 mg/ml ophthalmic solution (4 sources) Nonsteroidal Anti-inflammatory Drug Start: 02-25-2022 End: 10-02-2022 take 0.075 drop(s) into the eye(s) once daily in the evening Bromfenac (Bromsite) 0.075 % drops Discontinued 1 NMA OPHTHALMIC EVERY EVENING February 25, 2022 12:00am October 02, 2022 1:25pm Right eye only Start: 02-25-2022 End: 10-02-2022 take 0.075 drop(s) into the eye(s) once daily in the evening Bromfenac (Bromsite) 0.075 % drops Discontinued 1 DRP OPHTHALMIC EVERY EVENING February 25, 2022 12:00am October 02, 2022 1:25pm Right eye only Flu Vac Qs 2018(4 Yr Up)Cd(P f) (Flucelvax Quad (Pf)) 0.5 ML syringe (8 sources) Start: 02-17-2018 End: 02-18-2018 Flu Vac Qs 2019(4 Yr Up)Cd(P f) (Flucelvax Quad (Pf)) 0.5 ML syringe Discontinued 0.5 mL IM .ONCE 1 February 17, 2018 12:00am February 17, 2018 12:00am February 18, 2018 12:08am Start: 02-17-2018 End: 02-18-2018 Flu Vac Qs 2018(4 Yr Up)Cd(P f) (Flucelvax Quad (Pf)) 0.5 ML syringe Discontinued 0.5 ML IM .ONCE 1 February 17, 2018 12:00am February 18, 2018 12:08am 24 hr metoprolol succinate 25 mg extended release oral tablet (4 sources) beta-Adrenergic Efren Start: 11-27-2022 End: 12-01-2022 take 1 tablet by mouth once daily Metoprolol Succinate 25 mg tablet extended release 24 hr Discontinued 25 mg PO DAILY November 27, 2022 12:00am December 01, 2022 2:56pm omeprazole 20 mg delayed release oral tablet (9 sources) Proton Pump Inhibitor Start: 04-14-2018 End: 12-15-2018 Omeprazole Magnesium 20 MG tablet,delayed release (DR/EC) Discontinued 20 mg PO NEEDED as needed for Heartburn April 14, 2018 1:00am December 15, 2018 9:32am microencapsulated potassium chloride 20 meq extended release oral tablet (9 sources) Start: 04-14-2018 End: 04-16-2018 take 1 tablet by mouth every twelve hours Potassium Chloride (Klor-Con M20) 20 MEQ tablet Discontinued 20 meq PO Q12H 3 2 April 14, 2018 1:00am April 15, 2018 1:00am April 16, 2018 1:17am Take one tablet by mouth every 12 hours x 3 doses simvastatin 20 mg oral tablet (9 sources) HMG-CoA Reductase Inhibitor Start: 10-15-2017 End: 10-01-2023 take 1 tablet by mouth once daily in the evening Simvastatin 20 mg tablet Discontinued 20 mg PO EVERY EVENING October 15, 2017 12:00am October 01, 2023 2:31pm Problems Active Problems Problem Classification Problem Date Documented Da te Episodic/Chronic Administrative/social admission (20 sources) Patient encounter status; Translations: [Counseling, unspecified] Episodic Allergic reactions (1 source) Allergy status to other antibiotic agents status; Translations: [Allergy status to other antibiotic agents] Onset: 09-05-2024 Episodic Cancer of breast (20 sources) Malignant tumor of breast ; Translations: [Malignant neoplasm of unspecified site of right female breast] Onset: 09-27-2024 Chronic Comment on above: No evidence of disea se clinically.Labs reviewed, within normal limits. Cancer of breast (1 source) Personal history of malignant neoplasm of breast; Translations: [Personal history of malignant neoplasm of breast] Onset: 09-27-2024 Episodic Cardiac dysrhythmias (7 sources) Multiple premature ventricular complexes; Translations: [Ventricular premature depolarization] 11-27-2022 Chronic Cardiac dysrhythmias (20 sources) Palpitations; Translations: [Palpitations] Onset: 08-29-2024 Episodic Diabetes mellitus without complication (2 sources) Hyperglycemia, unspecified; Translations: [Hyperglycemia, unspecified] Onset: 09-15-2024 Episodic Disorders of lipid metabolism (20 sources) Hyperlipidemia; Translations: [Hyperlipidemia, unspecified] Onset: 08-29-2024 Chronic Diverticulosis and diverticulitis (1 source) Diverticulosis of intestine, part unspecified, without perforation or abscess without bleeding; Translations: [Diverticulosis of intestine, part unspecified, without perforation or abscess without bleeding] Onset: 02-16-2024 Chronic Fever of unknown origin (18 sources) Fever; Translations: [Fever, unspecified] Episodic Gastrointestinal hemorrhage (3 sources) Hemorrhage of anus and rectum; Translations: [Hemorrhage of anus and rectum] Onset: 09-05-2024 Episodic Hemorrhoids (1 source) Other hemorrhoids; Translations: [Other hemorrhoids] Onset: 09-05-2024 Episodic Immunizations and screening for infectious disease (10 sources) Needs influenza immunization; Translations: [Encounter for immunization] 12-14-2018 Episodic Maintenance chemotherapy; radiotherapy (10 sources) Patient encounter status; Translations: [Encounter for antineoplastic chemotherapy] 12-14-2018 Chronic Nonmalignant breast conditions (9 sources) Breast lump; Translations: [Unspecified lump in the right breast, unspecified quadrant] 12-14-2018 Episodic Osteoarthritis (1 source) Unspecified osteoarthritis, unspecified site; Translations: [Unspecified osteoarthritis, unspecified site] Onset: 02-16-2024 Chronic Other hematologic conditions (1 source) Other specified diseases of blood and blood-forming organs; Translations: [Other specified diseases of blood and blood-forming organs] Onset: 02-16-2024 Chronic Other lower respiratory disease (9 sources) Nodule of lung; Translations: [Solitary pulmonary nodule] 10-03-2021 Episodic Comment on above: stable. Other lower respiratory disease (8 sources) Solitary pulmonary nodule; Translations: [Solitary pulmonary nodule] Episodic Other screening for suspected conditions (not mental disorders or infectious disease) (2 sources) Encounter for screening mammogram for malignant neoplasm of breast; Translations: [Encounter for screening mammogram for malignant neoplasm of breast] Onset: 09-27-2024 Episodic Residual codes; unclassified (2 sources) Family history of other specified conditions; Translations: [Family history of other specified conditions] Onset: 09-30-2022 Episodic Residual codes; unclassified (2 sources) Estrogen receptor negative status [ER-]; Translations: [Estrogen receptor negative status [ER-]] Onset: 09-27-2024 Episodic Thyroid disorders (1 source) Hypothyroidism, unspecified; Translations: [Hypothyroidism, unspecified] Onset: 08-29-2024 Chronic Thyroid disorders (1 source) Thyroid dysfunction 04-01-2024 Episodic Unclassified (1 source) Personal history of colon polyps, unspecified; Translations: [Personal history of colon polyps, unspecified] Onset: 09-05-2024 Past or Other Problems Problem Classification Problem Date Documented Da te Episodic/Chronic Cataract (6 sources) Cataract 12-07-2021 Comment on above: NOVEMBER 2019 AND DECEMBER 2019 Residual codes; unclassified (1 source) Asymptomatic menopausal state; Translations: [Asymptomatic menopausal state] Onset: 02-16-2024 Episodic Results Test Name Value Interpretation Reference Range Facility CA 15-3on 09-29-2024 CA 15-3 21.6 U/mL Normal 0.0-25.0 [facility] Comment on above: Result Comment: [facility] Electrochemiluminescence Immunoassay (ECLIA) Values obtained with different assay methods or kits cannot be used interchangeably. Results cannot be interpreted as absolute evidence of the presence or absence of malignant disease. Performed at: [address] [id number] Credit Underwriter: Abdi Vázquez PhD, Phone: [phone] Performed By: #### L 3100.5040, L3100.5030 #### [facility] [address] [place], [address] CA 27.29on 09-29-2024 CA 27.29 31.2 U/mL Normal 0.0-38.6 [facility] Comment on above: Result Comment: [facility] Immunochemiluminometric Methodology (ICMA) Values obtained with different assay methods or kits cannot be used interchangeably. Results cannot be interpreted as absolute evidence of the presence or absence of malignant disease. Performed By: #### L 3100.5040, L3100.5030 #### [facility] [address] [place], [address] Absolute lymphocyte countOrd ered By: [facility] on 09-27-2024 Lymphocytes Auto (Unsp spec) [#/Vol] 1.79 10*3/uL 0.83-4.51 [facility] Absolute neutrophil countOrd ered By: [facility] on 09-27-2024 Neutrophils (Bld) [#/Vol] 3.7 10*3/uL 2.0-7.7 [facility] Anion gap in Serum or Plasma Ordered By: [facility] on 09-27-2024 Anion gap [Moles/Vol] 9 mmol/L 5-15 [facility] Automated lymphocyte count a s percentage of total leukocytesOrdered By: [facility] on 09-27-2024 Lymphocytes/100 WBC Auto (Unsp spec) 28.3 % 19-41 [facility] BUN/creatinine ratioOrdered By: [facility] on 09-27-2024 Urea nitrogen/Creatinine [Mass ratio] 21.4 mg/mg High 10-20 [facility] Basophil percentageOrdered B y: [facility] on 09-27-2024 Basophils/100 WBC (Bld) 0.8 % 0-1 [facility] Bilirubin, totalOrdered By: [facility] on 09-27-2024 Bilirubin [Mass/Vol] 0.30 mg/dL 0.00-1.30 [facility] CBC W/Diff, Automatedon 09-15 Absolute Lymph 1.79 X10 3/uL Normal 0.83-4.51 [facility] Comment on above: Performed By: #### L 500.4050, L504.2610, L100.0100 #### [facility] [address] [place], [address] Absolute Neut 3.7 X10 3/uL Normal 2.0-7.7 [facility] Comment on above: Performed By: #### L 500.4050, L504.2610, L100.0100 #### [facility] [address] [place], [address] Basophils/100 WBC (Bld) 0.8 % Normal 0-1 [facility] Comment on above: Performed By: #### L 500.4050, L504.2610, L100.0100 #### [facility] [address] [place], [address] Eosinophils/100 WBC (Bld) 4.7 % Normal 0-5 [facility] Comment on above: Performed By: #### L 500.4050, L504.2610, L100.0100 #### [facility] [address] [place], [address] Erythrocyte distribution width (RBC) [Ratio] 12.0 % Normal 11.6-14.6 [facility] Comment on above: Performed By: #### L 500.4050, L504.2610, L100.0100 #### [facility] [address] [place], [address] Hematocrit (Bld) [Volume fraction] 40.6 % Normal 37-47 [facility] Comment on above: Performed By: #### L 500.4050, [id number], L100.0100 #### [facility] [address] [place], [address] Hemoglobin (Bld) [Mass/Vol] 13.3 g/dL Normal 12.0-15.0 [facility] Comment on above: Performed By: #### L 500.4050, L504.2610, L100.0100 #### [facility] [address] [place], [address] IG% 0.300 Normal 0.0-0.9 [facility] Comment on above: Result Comment: IG% - Immature Granulocytes (promyelocytes, myelocytes and metamyelocytes) > 1% indicates that a LEFT SHIFT is Present. Performed By: #### L 500.4050, L504.2610, L100.0100 #### [facility] [address] [place], [address] Lymphocytes/100 WBC (Bld) 28.3 % Normal 19-41 [facility] Comment on above: Performed By: #### L 500.4050, L504.2610, L100.0100 #### [facility] [address] [place], [address] MCH (RBC) [Entitic mass] 32.7 pg High 27.0-32.0 [facility] Comment on above: Performed By: #### L 500.4050, [id number], L100.0100 #### [facility] [address] [place], [address] MCHC (RBC) [Mass/Vol] 32.8 g/dL Normal 32-36 [facility] Comment on above: Performed By: #### L 500.4050, L504.2610, L100.0100 #### [facility] [address] [place], [address] MCV (RBC) [Entitic vol] 99.8 fL High 81-99 [facility] Comment on above: Performed By: #### L 500.4050, L504.2610, L100.0100 #### [facility] [address] [place], [address] Monocytes/100 WBC (Bld) 7.0 % Normal 0-10 [facility] Comment on above: Performed By: #### L 500.4050, L504.2610, L100.0100 #### [facility] [address] [place], [address] Neutrophils/100 WBC (Bld) 58.9 % Normal 47-70 [facility] Comment on above: Performed By: #### L 500.4050, L504.2610, L100.0100 #### [facility] [address] [place], [address] Nucleated RBC (Bld) [#/Vol] 0 10*3/uL Normal 0-5 [facility] Comment on above: Performed By: #### L 500.4050, [id number], L100.0100 #### [facility] [address] [place], [address] Platelet mean volume (Bld) [Entitic vol] 10.4 fL Normal 6.2-12.0 [facility] Comment on above: Performed By: #### L 500.4050, L504.2610, L100.0100 #### [facility] [address] [place], [address] Platelets (Bld) [#/Vol] 222 10*3/uL Normal 150-450 [facility] Comment on above: Performed By: #### L 500.4050, L504.2610, L100.0100 #### [facility] [address] [place], [address] RBC (Bld) [#/Vol] 4.07 10*6/uL Low 4.2-5.4 [facility] Comment on above: Performed By: #### L 500.4050, [id number], L100.0100 #### [facility] [address] [place], [address] RDW SD 44.3 fl High 35.1-43.9 [facility] Comment on above: Performed By: #### L 500.4050, L504.2610, L100.0100 #### [facility] [address] [place], [address] WBC (Bld) [#/Vol] 6.3 10*3/uL Normal 4.4-11.0 [facility] Comment on above: Performed By: #### L 500.4050, L504.2610, L100.0100 #### [facility] [address] [place], [address] Carbon dioxide, total [Moles /volume] in Central venous bloodOrdered By: Parth Walton on 09-27-2024 CO2 [Moles/Vol] 28.7 mmol/L 21.0-32.0 [facility] Chloride assayOrdered By: Mari Walton on 09-27-2024 Chloride [Moles/Vol] 103 mmol/L 98-108 [facility] Comprehensive Metabolic Prof ilon 09-27-2024 Albumin [Mass/Vol] 4.2 g/dL Normal 3.4-4.8 [facility] Comment on above: Performed By: #### L 500.4050, L504.2610, L100.0100 #### [facility] [address] [place], [address] Albumin/Globulin [Mass ratio] 1.6 {ratio} Normal 0.9-2.4 [facility] Comment on above: Performed By: #### L 500.4050, L504.2610, L100.0100 #### [facility] [address] [place], [address] ALK PHOS 92 U/L Normal 35-104 [facility] Comment on above: Performed By: #### L 500.4050, L504.2610, L100.0100 #### [facility] [address] [place], [address] ALT [Catalytic activity/Vol] 22 U/L Normal <=34 [facility] Comment on above: Performed By: #### L 500.4050, L504.2610, L100.0100 #### [facility] [address] [place], [address] AST [Catalytic activity/Vol] 26 U/L Normal <=31 [facility] Comment on above: Performed By: #### L 500.4050, L504.2610, L100.0100 #### [facility] [address] [place], [address] Bilirubin [Mass/Vol] 0.30 mg/dL Normal 0.00-1.30 [facility] Comment on above: Performed By: #### L 500.4050, [id number], L100.0100 #### [facility] [address] [place], [address] BUN/CRE 21.4 RATIO High 10-20 [facility] Comment on above: Performed By: #### L 500.4050, L504.2610, L100.0100 #### [facility] [address] [place], [address] Calcium [Mass/Vol] 9.6 mg/dL Normal 7.6-11.0 [facility] Comment on above: Performed By: #### L 500.4050, L504.2610, L100.0100 #### [facility] [address] [place], [address] Chloride [Moles/Vol] 103 mmol/L Normal 98-108 [facility] Comment on above: Performed By: #### L 500.4050, L504.2610, L100.0100 #### [facility] [address] [place], [address] CO2 [Moles/Vol] 28.7 mmol/L Normal 21.0-32.0 [facility] Comment on above: Performed By: #### L 500.4050, L504.2610, L100.0100 #### [facility] [address] [place], [address] Creatinine [Mass/Vol] 0.69 mg/dL Low 0.70-1.20 [facility] Comment on above: Performed By: #### L 500.4050, L504.2610, L100.0100 #### [facility] [address] [place], [address] ECRCL 49.70 ml/min Low 50-250 [facility] Comment on above: Performed By: #### L 500.4050, L504.2610, L100.0100 #### [facility] [address] [place], [address] GAP 9 Normal 5-15 [facility] Comment on above: Performed By: #### L 500.4050, L504.2610, L100.0100 #### [facility] [address] [place], [address] GFR/1.73 sq M.predicted among non-blacks MDRD (S/P/Bld) [Vol rate/Area] 88 mL/min/{1.73_m2} Normal >60 [facility] Comment on above: Result Comment: mL/m in/1.73m2 CKD-EPI Creatinine Equation (2020) Performed By: #### L 500.4050, L504.2610, L100.0100 #### [facility] [address] [place], [address] Globulin (S) [Mass/Vol] 2.6 g/dL Normal 2.2-4.2 [facility] Comment on above: Performed By: #### L 500.4050, L504.2610, L100.0100 #### [facility] [address] [place], [address] Glucose [Mass/Vol] 150 mg/dL High 70-99 [facility] Comment on above: Performed By: #### L 500.4050, L504.2610, L100.0100 #### [facility] [address] [place], [address] Potassium [Moles/Vol] 3.8 mmol/L Normal 3.3-5.1 [facility] Comment on above: Performed By: #### L 500.4050, L504.2610, L100.0100 #### [facility] [address] [place], [address] Sodium [Moles/Vol] 140 mmol/L Normal 133-145 [facility] Comment on above: Performed By: #### L 500.4050, L504.2610, L100.0100 #### [facility] [address] [place], [address] T PROT 6.8 g/dL Normal 5.9-8.4 [facility] Comment on above: Performed By: #### L 500.4050, L504.2610, L100.0100 #### [facility] [address] [place], [address] Urea nitrogen [Mass/Vol] 15 mg/dL Normal 4-19 [facility] Comment on above: Performed By: #### L 500.4050, L504.2610, L100.0100 #### [facility] [address] [place], [address] Eosinophil percentageOrdered By: Parth Walton on 09-27-2024 Eosinophils/100 WBC (Bld) 4.7 % 0-5 [facility] Erythrocyte distribution wid th ratioOrdered By: Parth Walton on 09-27-2024 Erythrocyte distribution width (RBC) [Ratio] 12.0 % 11.6-14.6 [facility] Erythrocyte distribution wid th standard deviationOrdered By: Parth Walton on 09-27-2024 Erythrocyte distribution width (RBC) [Ratio] 44.3 fl High 35.1-43.9 [facility] Glomerular filtration rate ( GFR) estimation/1.73 sq m using serum, plasma, or whole bOrdered By: Parth Walton on 09-27-2024 GFR/1.73 sq M.predicted among non-blacks MDRD (S/P/Bld) [Vol rate/Area] 88 mL/min/{1.73_m2} >60 [facility] Comment on above: mL/min/1.73m2 CKD-EP I Creatinine Equation (2020) Hematocrit Auto (Bld) [Volum e fraction]Ordered By: Parth Walton on 09-27-2024 Hematocrit (Bld) [Volume fraction] 40.6 % 37-47 [facility] Hemoglobin A1con 09-27-2024 HbA1c (Bld) [Mass fraction] 5.7 % Normal <=5.6 [facility] Comment on above: Result Comment: Norm al < 5.7 % Prediabetic 5.7 - 6.4 % Diabetic >or= 6.5 % Please note range changes. Performed By: #### L 501.9995 #### [facility] [address] [place], [place], [address] Hemoglobin A1c percentageOrd ered By: Johan Berg on 09-27-2024 HbA1c (Bld) [Mass fraction] 5.7 % <5.7 [facility] Comment on above: Normal < 5.7 % Predi abetic 5.7 - 6.4 % Diabetic >or= 6.5 % Please note range changes. Hemoglobin measurementOrdere d By: Parth Walton on 09-27-2024 Hemoglobin (Bld) [Mass/Vol] 13.3 g/dL 12.0-15.0 [facility] Immature granulocytes/100 WB C Auto (Bld)Ordered By: Parth Walton on 09-27-2024 Immature granulocytes/100 WBC (Bld) 0.300 % 0.0-0.9 [facility] Comment on above: IG% - Immature Granu locytes (promyelocytes, myelocytes and metamyelocytes) > 1% indicates that a LEFT SHIFT is Present. LDHon 09-27-2024 LDH 204 U/L Normal 84-246 [facility] Comment on above: Order Comment: 1 Performed By: #### L 500.4050, L504.2610, L100.0100 #### [facility] [address] [place], [address] Laboratory - Chemistry and C hemistry - challengeOrdered By: Parth Anton on 09-27-2024 AST [Catalytic activity/Vol] 26 U/L <32 [facility] Lactate dehydrogenase (LDH) measurementOrdered By: [facility] on 09-27-2024 LDH [Catalytic activity/Vol] 204 U/L 84-246 [facility] MCV (mean corpuscular volume ) determinationOrdered By: [facility] on 09-27-2024 MCV (RBC) [Entitic vol] 99.8 fL High 81-99 [facility] Mean corpuscular hemoglobin (MCH) determinationOrdered By: [facility] on 09-27-2024 MCH (RBC) [Entitic mass] 32.7 pg High 27.0-32.0 [facility] Mean corpuscular hemoglobin concentration (MCHC) determinationOrdered By: [facility] on 09-27-2024 MCHC (RBC) [Mass/Vol] 32.8 g/dL 32-36 [facility] Mean platelet volume determi nationOrdered By: [facility] on 09-27-2024 Platelet mean volume (Bld) [Entitic vol] 10.4 fL 6.2-12.0 [facility] Monocyte percentageOrdered B y: [facility] on 09-27-2024 Monocytes/100 WBC (Bld) 7.0 % 0-10 [facility] Neutrophil percentageOrdered By: [facility] on 09-27-2024 Neutrophils/100 WBC (Bld) 58.9 % 47-70 [facility] Nucleated red blood cell per centageOrdered By: [facility] on 09-27-2024 Nucleated RBC/100 WBC (Bld) [Ratio] 0 % 0-5 [facility] Oncology Visit Reporton 09-15 Oncology Visit Report [facility] [place] [facility] [address] [place] [address] OFFICE VISIT Date of Service: 09/27/24 1449 MR#: [id number] Acct: [id number] Name: SHAYNE MONTES Rep #: [id number] : 1945 From: Parth Walton MD Age/Sex: 79/F Location: [facility] Status: Signed HPI Subjective Date of Service 09/27/24 Chief Complaint F/U for R breast cancer. History of Present Illness 79 y.o.woman with a PMH positive for chronic leukopenia, diverticulitis and hypothyroidism who detected a mass in the R breast November 2017. She underwent US guided R core biopsy on 11/21/2017 which showed invasive ductal carcinoma. She went on to have right breast lumpectomy and sentinel lymph node biopsy on 12/18/2017 under the care of Dr. Lange, pathology showed single focus, grade 3 invasive ductal ca, ER-, LA- and HER2 0 per IHC, margins negative, tumor measured 1.8 cm and 5/5 LN negative for metastatic disease. Stage IA(pT1c pN0 M0). Post operative period uncomplicated. Began adjuvant Taxotere and Cytoxan 02/03/18. She developed neutropenic fever about a week after starting chemotherapy. Cycle 2 Taxotere reduced by 20%. CT chest obtained 03/04/18 showed 3 mm nodule in the right middle lobe. Completed cycle 4 Taxotere/Cytoxan on 04/07/18. Received adjuvant Radiation to the R breast in [place] under the care of Dr. Taz Fuller. She is now on observation. Comes for follow up. Feels well. [facility] Medical History (Updated 09/27/24 @ 15:[address] Parth Walton MD) biateral cataract surgery Hyperlipidemia Palpitations History of right breast cancer Chemotherapy induced neutropenia Lung nodules Leukocytosis Malignant neoplasm of upper-outer quadrant of right female breast Anemia associated with chemotherapy Breast cancer, right breast Breast mass, right History of broken nose Diverticulitis Hypothyroid Surgical History (Updated 09/27/24 @ 14:57 by Janae Laws LPN) History of lumpectomy of right breast (11/2017) H/O colonoscopy History of breast biopsy H/O: hysterectomy H/O tubal ligation Family History Father Heart disease Mother Hypertension Cancer CAD (coronary artery disease) Social History Smoking Status: Never smoker alcohol intake: never substance use type: does not use caffeine: No Intake Vital Signs 10/01/23 14:26 09/27/24 14:49 Height 5 ft 1 in 5 ft 1 in Weight: 66.338 kg 65.516 kg BMI 27.6 27.3 BP 122/70 H 119/70 Blood Pressure Location Lt brachial Position Sitting Sitting Respiration 16 18 Pulse 63 68 Pulse Source Monitor Temp 98.0 F 98 F Temperature Source Temporal Artery Pulse Oximetry (%) 95 98 Oxygen Delivery Method room air room air Intake Is patient in pain?: No Allergies ciprofloxacin (From Cipro) Allergy (Intermediate, Verified 09/27/24 14:53) Anaphylaxis erythromycin base Allergy (Mild, Verified 09/27/24 14:53) Unknown Medications ???Medication ???Instructions ???Recorded ???Confirmed ???Type calcium 315 mg (as 2 tab PO BID 10/15/17 09/27/24 His tory citrate)-vitamin D3 6.25 mcg (250 unit) tablet (Citracal + Vitamin D Maximum) loratadine 10 mg tablet (Claritin) 10 mg PO QDAY 10/15/17 09/27/24 History multivitamin 1 cap PO QAM 10/15/17 09/27/24 His tory sennosides 8.6 mg tablet (Senna 8.6 mg PO DAILY 10/15/17 09/27/24 History Lax) fluticasone propionate 50 1 spray intranasal DAILY 11/27/21 09/27/24 History mcg/actuation nasal spray,suspension (Flonase Allergy Relief) levothyroxine 75 mcg tablet 75 mcg PO DAILY 11/27/21 09/27/24 History diltiazem HCl 120 mg 120 mg PO DAILY #30 caps 12/18/22 09/27/24 Rx capsule,extended release 24 hr atorvastatin 20 mg tablet 20 mg PO QHS 10/01/23 09/27/24 His tory Have you fallen in the past year?: Yes Central Venous Access Central Venous Access: No Laboratory Tests 09/27/24 09/27/24 14:08 14:12 WBC 6.3 Hgb 13.3 Hct 40.6 Plt Count 222 Absolute Neuts (auto) 3.7 Absolute Lymphs (auto) 1.79 Sodium 140 Potassium 3.8 Chloride 103 Carbon Dioxide 28.7 BUN 15 Creatinine 0.69 L Glucose 150 H Hemoglobin A1c 5.7 Calcium 9.6 Total Bilirubin 0.30 AST 26 ALT 22 Alkaline Phosphatase 92 Lactate Dehydrogenase 204 Total Protein 6.8 Albumin 4.2 Globulin 2.6 Exam Physical Exam Const alert, oriented x3 and no apparent distress General Appearance: cooperative and comfortable HEENT normocephalic, external ears normal and external nose normal Eyes PERRL, conjunctivae normal and no scleral icterus Neck full ROM and supple Lymph Lymphatic: no lymphadenopathy noted Chest inspection of chest no (more content not included)... Normal [facility] Platelet countOrdered By: Mari Walton on 09-27-2024 Platelets (Bld) [#/Vol] 222 10*3/uL 150-450 [facility] Potassium measurement (mass/ volume)Ordered By: Parth Walton on 09-27-2024 Potassium (Unsp spec) [Mass/Vol] 3.8 mmol/L 3.3-5.1 [facility] RBC Auto (Bld) [#/Vol]Ordere d By: Parth Walton on 09-27-2024 RBC (Bld) [#/Vol] 4.07 10*6/uL Low 4.2-5.4 [facility] Serum creatinine measurement (mass/volume)Ordered By: Parth Walton on 09-27-2024 Creatinine [Mass/Vol] 0.69 mg/dL Low 0.70-1.20 [facility] Serum globulin measurementOr dered By: Parth Walton on 09-27-2024 Globulin (S) [Mass/Vol] 2.6 g/dL 2.2-4.2 [facility] Serum glucose measurement (m ass/volume)Ordered By: Parth Walton on 09-27-2024 Glucose [Mass/Vol] 150 mg/dL High 70-99 [facility] Serum or plasma alanine ferrer otransferase (ALT) measurementOrdered By: Parth Walton on 09-27-2024 ALT [Catalytic activity/Vol] 22 U/L <35 [facility] Serum or plasma albumin quinten urement (mass/volume)Ordered By: Parth Walton on 09-27-2024 Albumin [Mass/Vol] 4.2 g/dL 3.4-4.8 [facility] Serum or plasma albumin/glob ulin mass ratioOrdered By: Parth Walton on 09-27-2024 Albumin/Globulin [Mass ratio] 1.6 {ratio} 0.9-2.4 [facility] Serum or plasma alkaline gabe sphatase measurementOrdered By: Parth Walton on 09-27-2024 ALP [Catalytic activity/Vol] 92 U/L 35-104 [facility] Serum or plasma calcium quinten urement (mass/volume)Ordered By: Parth Walton on 09-27-2024 Calcium [Mass/Vol] 9.6 mg/dL 7.6-11.0 [facility] Serum or plasma urea nitroge n measurement (mass/volume)Ordered By: Parth Walton on 09-27-2024 Urea nitrogen [Mass/Vol] 15 mg/dL 4-19 [facility] Sodium levelOrdered By: Selvin Walton on 09-27-2024 Sodium [Moles/Vol] 140 mmol/L 133-145 [facility] Total proteinOrdered By: Troy Walton on 09-27-2024 Protein [Mass/Vol] 6.8 g/dL 5.9-8.4 [facility] White blood cell (WBC) count Ordered By: Parth Walton on 09-27-2024 WBC (Bld) [#/Vol] 6.3 10*3/uL 4.4-11.0 [facility] Final Surgical Pathology Rep niko 09-19-2024 Final Surgical Pathology Report . Pathology Reports Accession: Collected Date/Time: Received Date/Time: Pathologist: [id number] 09/15/2024 09:48 EDT 09/16/2024 11:12 EDT MANJIT GOODRICH MD Final Surgical Pathology Report DIAGNOSIS: A. PROXIMAL RIGHT COLON, POLYPECTOMY: - TUBULAR ADENOMA B. COLON, POLYP AT 50 CM: - POLYPOID COLONIC MUCOSAL FRAGMENT COMMENT: [id number] - [id number] CLINICAL INFORMATION: H/O POLYPS SPECIMEN: A PROXIMAL RIGHT COLON POLYP B 50cm COLON POLYP GROSS DESCRIPTION: All parts labelled with patient name and [id number] A. Received in formalin labeled proximal right colon are 4 ferro-brown tissue fragments measuring 0.2 to 0.6 x 0.5 cm greatest dimension. Fecal debris also identified. TS-1 B. Received in formalin labeled 50 cm colon is 1 ferro-brown tissue fragment measuring 0.5 x 0.4 cm greatest dimension. TS-1 Sury Almanza, Grossing Laser Cutter/ Dr. Manjit Goodrich, Pathologist Performed by Sury Almanza MICROSCOPIC DESCRIPTION: The microscopic examination is performed, except in the case of Gross Only. Verified by Pathology Report verified by [facility] MANJIT GOODRICH Sign out Date: 09/19/2024 12:10 Performing Lab: [facility], [address] [place] [address] Pathology Dept Disclaimer If ancillary studies were utilized, the following Laboratory Developed Test (LDT) disclaimer will apply: Under CLIA requirements, [facility] is qualified to perform high complexity testing. For all ancillary stains, positive and negative controls stain appropriately. Performance characteristics of immunohistochemical and chromogenic in-situ hybridization tests have been determined by [facility]. These tests are used for clinical purposes, They should not be regarded as investigational or for research. . Normal [facility] T4, FREE [CCL]on 08-30-2024 Free T4 [Mass/Vol] 1.3 ng/dL Normal 0.9-1.7 [facility] Comment on above: Result Comment: [facility] [address] [place] [address] Vineet Tripp III, M.D. [id number] Performed By: #### 2 71705 #### [address] [address] CBC + DIFFon 08-29-2024 Baso # 0.02 x10EE3/UL Normal 0.00 - 0.10 [facility] Comment on above: Performed By: #### 2 08787 #### [facility],[address] [place] [address] Basophils/100 WBC (Bld) 0.4 % Normal 0.0 - 2.0 [facility] Comment on above: Performed By: #### 2 69735 #### [facility],[address] [place] [address] CBC + DIFF Normal [facility] Comment on above: Result Comment: CBC- COMPLETE BLOOD COUNT Performed By: #### 2 15480 #### [facility],[address] [place] [address] EO # 0.19 x10EE3/UL Normal 0.00 - 0.50 [facility] Comment on above: Performed By: #### 2 01571 #### [facility],[address] [place], [place] [id number] Eosinophils/100 WBC (Bld) 4.4 % Normal 0.0 - 7.0 [facility] Comment on above: Performed By: #### 2 86218 #### [place] [address] Erythrocyte distribution width (RBC) [Ratio] 12.5 % Normal 12.0 - 15.6 [facility] Comment on above: Performed By: #### 2 96938 #### [facility],[address] [place] [address] Hematocrit (Bld) [Volume fraction] 41.4 % Normal 34.0 - 46.0 [facility] Comment on above: Performed By: #### 2 17186 #### [facility],[address] [place], [place] [address] Hemoglobin (Bld) [Mass/Vol] 14.3 g/dL Normal 12.0 - 16.0 [facility] Comment on above: Performed By: #### 2 71607 #### [facility],[address] [place] [address] Lymph # 1.19 x10EE3/UL Normal 0.80 - 2.80 [facility] Comment on above: Performed By: #### 2 07487 #### [facility],[address] [place], [place] [address] Lymphocytes/100 WBC (Bld) 27.5 % Normal 20.0 - 45.0 [facility] Comment on above: Performed By: #### 2 76435 #### [facility],[address] [place] [address] MANUAL DIFF N/A Normal [facility] Comment on above: Performed By: #### 2 28276 #### [facility],[address] [place] [address] MCH (RBC) [Entitic mass] 34 pg High 27 - 33 [facility] Comment on above: Performed By: #### 2 95630 #### [facility],[address] [place] [address] MCHC 35 X10 3 Normal 32 - 36 [facility] Comment on above: Performed By: #### 2 16605 #### [facility],[address] [place] [address] MCV (RBC) [Entitic vol] 98 fL Normal 80 - 99 [facility] Comment on above: Performed By: #### 2 12994 #### [facility],[address] [place] [address] [place] # 0.26 x10EE3/UL Normal 0.20 - 1.00 [facility] Comment on above: Performed By: #### 2 87369 #### [facility],[address] [place] [address] MONOS % 6.1 % Normal 0.0 - 10.0 [facility] Comment on above: Performed By: #### 2 80240 #### [facility],[address] [place] [address] Morphology Hank (Bld) [Interp] N/A Normal [facility] Comment on above: Performed By: #### 2 80557 #### [place] [address] Neut # 2.66 x10EE3/UL Normal 1.50 - 7.10 [facility] Comment on above: Performed By: #### 2 77830 #### [facility],[address],[place] [address] Neutrophils/100 WBC (Bld) 61.7 % Normal 46.0 - 76.0 [facility] Comment on above: Performed By: #### 2 19822 #### [facility],[address] [place] [address] PLATELET 222 x10EE3/UL Normal 150 - 450 [facility] Comment on above: Performed By: #### 2 30063 #### [facility],[address] [place] [address] 18269 Platelet mean volume (Bld) [Entitic vol] 9.3 fL Normal 6.6 - 10.5 [facility] Comment on above: Result Comment: AUTO MATED DIFFERENTIAL Performed By: #### 2 51732 #### [facility],[address] [place] [address] 18187 RBC 4.24 x 10EE6/UL Normal 4.10 - 5.30 [facility] Comment on above: Performed By: #### 2 79214 #### [facility],[address] [place] [address]148 WBC 4.3 x 10EE3/UL Low 4.5 - 10.8 [facility] Comment on above: Performed By: #### 2 78030 #### [facility],[address] [place] [address] 23990 CMP with eGFRon 08-29-2024 AGE [address] [facility] Comment on above: Performed By: #### 2 90253 #### [facility],[address] [place] [address] 11444 Albumin [Mass/Vol] 3.8 g/dL Normal 3.4 - 5.0 [facility] Comment on above: Performed By: #### 2 45967 #### [facility],[address] [place] [address] 40007 Albumin/Globulin [Mass ratio] 1.1 {ratio} Normal 0.9 - 1.6 [facility] Comment on above: Performed By: #### 2 68140 #### [facility],[address] [place] [address] 65774 ALK PHOS 87 U/L Normal 46 - 116 [facility] Comment on above: Performed By: #### 2 75913 #### [facility],[address] [place] [address]2753 ALT [Catalytic activity/Vol] 40 U/L Normal 16 - 63 [facility] Comment on above: Performed By: #### 2 77824 #### [facility],[address] [place] [address] Anion gap [Moles/Vol] 11 mmol/L Normal 10 - 20 [facility] Comment on above: Performed By: #### 2 03005 #### [facility],[address] [place] [address] 27691 AST [Catalytic activity/Vol] 28 U/L Normal 13 - 39 [facility] Comment on above: Performed By: #### 2 91241 #### [facility],[address] [place] [address] 51537 B/C RATIO 30 ratio Normal 0 - 30 [facility] Comment on above: Performed By: #### 2 01500 #### [facility],[address] [place] [address] 75167 Bilirubin [Mass/Vol] 0.5 mg/dL Normal 0.2 - 1.0 [facility] Comment on above: Performed By: #### 2 77673 #### [facility],[address] [place] [address] Calcium [Mass/Vol] 9.9 mg/dL Normal 8.5 - 10.1 [facility] Comment on above: Performed By: #### 2 70062 #### [facility],[address] [place] [address] 07190 Chloride [Moles/Vol] 108 mmol/L High 98 - 107 [facility] Comment on above: Performed By: #### 2 94765 #### [facility],[address] [place] [address] 00886 CMP with eGFR Normal [facility] Comment on above: Result Comment: COMP REHENSIVE METABOLIC PANEL Performed By: #### 2 50001 #### [facility],[address] [place] [address] 60284 CO2 [Moles/Vol] 31.5 mmol/L Normal 21.0 - 32.0 [facility] Comment on above: Performed By: #### 2 84658 #### [facility],[address] [place] [address] Creatinine [Mass/Vol] 0.66 mg/dL Normal 0.55 - 1.02 [facility] Comment on above: Performed By: #### 2 95258 #### [facility],[address] [place] [address] 65134 GFR/1.73 sq M.predicted among non-blacks MDRD (S/P/Bld) [Vol rate/Area] mL/min/{1.73_m2} Normal 60 - 999 [facility] Comment on above: Performed By: #### 2 14754 #### [facility],[address] [place], [place] [address] Result Comment: ACCO RDING TO THE NATIONAL KIDNEY DISEASE EDUCATION PROGRAM(NKDE), A NORMAL eGFR IS A VALUE GREATER THAN OR EQUAL TO 60 ML/MIN/1.73 SQ METERS. CHRONIC KIDNEY DISEASE: <60mL/MIN/1.73 SQ METERS KIDNEY FAILURE: <15mL/MIN/1.73 SQ METERS THIS TEST SHOULD ONLY BE USED FOR PATIENTS 18 YEARS OF AGE AND OLDER. Globulin (S) [Mass/Vol] 3.5 g/dL Normal 1.5 - 3.8 [facility] Comment on above: Performed By: #### 2 31992 #### [facility],[address] [place] [address]28[address] Glucose [Mass/Vol] 111 mg/dL High 74 - 106 [facility] Comment on above: Performed By: #### 2 49453 #### [facility],[address] [place] [address] 64732 Potassium [Moles/Vol] 4.2 mmol/L Normal 3.5 - 5.1 [facility] Comment on above: Performed By: #### 2 09180 #### [facility],[address] [place] [address] 64355 Protein [Mass/Vol] 7.3 g/dL Normal 6.4 - 8.2 [facility] Comment on above: Performed By: #### 2 35657 #### [facility],[address] [place] [address] 60453 Sodium [Moles/Vol] 146 mmol/L High 136 - 145 [facility] Comment on above: Performed By: #### 2 63379 #### [facility],[address] [place] [address] 74444 Urea nitrogen [Mass/Vol] 20 mg/dL High 7 - 18 [facility] Comment on above: Performed By: #### 2 70468 #### [facility],[address] [place] [address] 77495 LIPID PROFILEon 08-29-2024 Cholesterol [Mass/Vol] 142 mg/dL Normal 0 - 240 [facility] Comment on above: Performed By: #### 2 66679 #### [facility],[address] [place] [address] 11390 Cholesterol in HDL [Mass/Vol] 71 mg/dL High 40 - 60 [facility] Comment on above: Performed By: #### 2 54294 #### [facility],[address] [place] [address] 62335 Cholesterol in LDL [Mass/Vol] 56 mg/dL Normal 0 - 129 [facility] Comment on above: Performed By: #### 2 26810 #### [facility],[address] [place] [address] 21007 Cholesterol.total/Chol esterol in HDL [Mass ratio] 2.0 {ratio} Normal 0.0 - 5.0 [facility] Comment on above: Performed By: #### 2 71632 #### [facility],[address] [place] [address] 22714 Lipid [address] [facility] Comment on above: Result Comment: LIPI D PROFILE Performed By: #### 2 68185 #### [facility],[address] [place] [address] 14590 Triglyceride [Mass/Vol] 77 mg/dL Normal 0 - 150 [facility] Comment on above: Performed By: #### 2 48058 #### [facility],[address] [place] [address] 30299 MAGNESIUMon 08-29-2024 Magnesium [Mass/Vol] 2.1 mg/dL Normal 1.8 - 2.4 [facility] Comment on above: Performed By: #### 2 96469 #### [facility],[address] [place] [address] 14774 T4 Free SerPl-mCncon 025 Free T4 [Mass/Vol] 1.3 ng/dL Normal 0.9-1.7 [facility] Comment on above: Order Comment: Speci men Type: BLOOD SPECIMEN Ordering Facility: [facility] Address: [address] [place] [address] Performed By: #### 3 024-7 #### [facility] CLIA [id number] [address] [place] [address] [place] TSHon 08-29-2024 TSH Qn 1.65 m[IU]/L Normal 0.35 - 3.74 [facility] Comment on above: Performed By: #### 2 65520 #### [facility],[address] [place] [address] 22562 NM MYOCARDIAL SPECT STRESS/R ESTon 04-12-2024 NM MYOCARDIAL SPECT STRESS/REST ORIGINAL EXAMINATION: CARDIAC SPECT04/11/2024 12:23 pm TECHNIQUE: Exercise stress test Target heart rate achieved 125 BPM 89 % Workload: 10.10 METS Radiopharmaceutical (rest and stress doses): Tc-99m Sestamibi IV 11.0 and 31.5 mCi SPECT acquisition and processing: Images reconstructed into short, vertical long, and horizontal long axis planes. Wall motion evaluation and quantitative LVEF assessment. COMPARISON: None HISTORY: Reason for Exam: PVCS, fatigue, fam hx of CAD FINDINGS: There is no stress-induced reversible perfusion abnormality. No fixed perfusion defect is seen to suggest infarction. The left ventricular end-diastolic volume is 59 mL. Gated imaging demonstrates no regional wall motion abnormality. Estimated left ventricular ejection fraction is 74 %. TID ratio is normal at 0.92. IMPRESSION: 1. No stress-induced reversible perfusion abnormality is seen. 2. Cardiac systolic function is normal with estimated ejection fraction of 74 %. Interpreted by: Susan Tirado MD Preliminary Report By: Susan Tirado MD Electronically signed By Susan Tirado MD Dictated Date: 04/12/2024 11:27:12 AM Prelim Date: 04/12/2024 11:52:31 AM Sign Date: 04/12/2024 11:52:31 AM Ordering Provider: LUIS [facility] .GFRon 04-01-2024 GFR >60 [facility] Comment on above: Result Comment: GFR Population mean for , Non- Americans Ages 20-29 = 116 mL/min/1.73 sq.m. Ages 30-39 = 107 mL/min/1.73 sq.m. Ages 40-49 = 99 mL/min/1.73 sq.m. Ages 50-59 = 93 mL/min/1.73 sq.m. Ages 60-69 = 85 mL/min/1.73 sq.m. Ages 70+ = 75 mL/min/1.73 sq.m. Chronic Kidney Disease: Less than 60 mL/min/1.73 square meters End Stage Renal Disease: Less than 15 mL/min/1.73 square meters Performed By: #### M Mali GFR, BMP #### [place] [address] GFR Non- >60 [facility]IN Comment on above: Result Comment: GFR Population mean for , Non- Americans Ages 20-29 = 116 mL/min/1.73 sq.m. Ages 30-39 = 107 mL/min/1.73 sq.m. Ages 40-49 = 99 mL/min/1.73 sq.m. Ages 50-59 = 93 mL/min/1.73 sq.m. Ages 60-69 = 85 mL/min/1.73 sq.m. Ages 70+ = 75 mL/min/1.73 sq.m. Chronic Kidney Disease: Less than 60 mL/min/1.73 square meters End Stage Renal Disease: Less than 15 mL/min/1.73 square meters Performed By: #### M G, GFR, BMP #### [address] [address] [facility] BUN/Creatinine Ratio 29.4 ratio High 10.0-22.0 [facility] Comment on above: Performed By: #### Erendira Samson, GFR, BMP #### [address] [address] Calcium [Mass/Vol] 9.9 mg/dL Normal 8.7-10.4 [facility] Comment on above: Performed By: #### Erendira Samson, GFR, BMP #### [address] [address] Chloride [Moles/Vol] 105 mmol/L Normal 98-110 [facility] Comment on above: Performed By: #### Erendira Samson, GFR, BMP #### [address] [address] CO2 [Moles/Vol] 32 mmol/L Normal 22-32 [facility] Comment on above: Performed By: #### Erendira G, GFR, BMP #### [address] [address] Creatinine [Mass/Vol] 0.68 mg/dL Normal 0.50-1.20 [facility] Comment on above: Result Comment: Test ing performed on Krillion analyzer using enzymatic creatinine methodology. Performed By: #### M G, GFR, BMP #### [address] [address] Electrolyte Balance 8.0 mEq/L Normal 4.0-15.0 [place] [facility] Comment on above: Performed By: #### M G, GFR, BMP #### [address] [address] Glucose [Mass/Vol] 93 mg/dL Normal 82-115 [facility] Comment on above: Performed By: #### M [place], GFR, BMP #### [address] [address] Potassium [Moles/Vol] 3.5 mmol/L Normal 3.5-5.0 [facility] Comment on above: Performed By: #### M [place], GFR, BMP #### [address] [address] Sodium [Moles/Vol] 145 mmol/L Normal 136-145 [facility] Comment on above: Performed By: #### Erendira Samson, GFR, BMP #### [address] [address] Urea nitrogen [Mass/Vol] 20.0 mg/dL Normal 8.0-22.0 [facility] Comment on above: Performed By: #### M [place], GFR, BMP #### [address] [address] LABORATORYOrdered By: SYSTEM SYSTEM on 04-01-2024 Calcium [Mass/Vol] 9.9 mg/dL Normal 8.7 - 10. 4 mg/dL ADM SS Chloride [Moles/Vol] 105 mmol/L Normal 98 - 11 0 mEq/L ADM SS CO2 [Moles/Vol] 32 mmol/L Normal 22 - 32 mEq/L ADM SS Creatinine [Mass/Vol] 0.68 mg/dL Normal 0.50 - 1.20 mg/dL ADM SS Comment on above: Interpretive Data: T esting performed on Krillion analyzer using enzymatic creatinine methodology. Electrolyte Balance 8.0 mEq/L Normal 4.0 - 15 .0 mEq/L ADM SS GFR/1.73 sq M.predicted among blacks MDRD (S/P/Bld) [Vol rate/Area] ml/min/1.73sqm Invalid Interpretation Code Chemistry S Comment on above: Interpretive Data: GFR Population mean for , Non- Americans Ages 20-29 = 116 mL/min/1.73 sq.m. Ages 30-39 = 107 mL/min/1.73 sq.m. Ages 40-49 = 99 mL/min/1.73 sq.m. Ages 50-59 = 93 mL/min/1.73 sq.m. Ages 60-69 = 85 mL/min/1.73 sq.m. Ages 70+ = 75 mL/min/1.73 sq.m. Chronic Kidney Disease: Less than 60 mL/min/1.73 square meters End Stage Renal Disease: Less than 15 mL/min/1.73 square meters GFR/1.73 sq M.predicted among non-blacks MDRD (S/P/Bld) [Vol rate/Area] ml/min/1.73sqm Invalid Interpretation Code Chemistry S Comment on above: Interpretive Data: GFR Population mean for , Non- Americans Ages 20-29 = 116 mL/min/1.73 sq.m. Ages 30-39 = 107 mL/min/1.73 sq.m. Ages 40-49 = 99 mL/min/1.73 sq.m. Ages 50-59 = 93 mL/min/1.73 sq.m. Ages 60-69 = 85 mL/min/1.73 sq.m. Ages 70+ = 75 mL/min/1.73 sq.m. Chronic Kidney Disease: Less than 60 mL/min/1.73 square meters End Stage Renal Disease: Less than 15 mL/min/1.73 square meters Glucose [Mass/Vol] 93 mg/dL Normal 82 - 115 mg/dL ADM SS Magnesium [Mass/Vol] 1.9 mg/dL Normal 1.6 - 2 .4 mg/dL ADM SS Potassium [Moles/Vol] 3.5 mmol/L Normal 3.5 - 5.0 mEq/L ADM SS Sodium [Moles/Vol] 145 mmol/L Normal 136 - 145 mEq/L ADM SS Urea nitrogen [Mass/Vol] 20.0 mg/dL Normal 8.0 - 22.0 mg/dL ADM SS Urea nitrogen/Creatinine [Mass ratio] 29.4 ratio High 10.0 - 22.0 ratio ADM SS MGon 04-01-2024 Magnesium [Mass/Vol] 1.9 mg/dL Normal 1.6-2.4 [facility] Comment on above: Performed By: #### M G, RADHA, BMP #### [place] [address] CBC + DIFFon 02-16-2024 Baso # 0.01 x10EE3/UL Normal 0.00 - 0.10 [facility] Comment on above: Performed By: #### 2 88112 #### [facility],[address] [place] [address] 09232 Basophils/100 WBC (Bld) 0.3 % Normal 0.0 - 2.0 [facility] Comment on above: Performed By: #### 2 39262 #### [facility],[address] [place] [address] CBC + DIFF Normal [facility] Comment on above: Result Comment: CBC- COMPLETE BLOOD COUNT Performed By: #### 2 21773 #### [facility],[address] [place] [address] EO # 0.21 x10EE3/UL Normal 0.00 - 0.50 [facility] Comment on above: Performed By: #### 2 15293 #### [facility],[address] [place], [place] [id number] Eosinophils/100 WBC (Bld) 4.1 % Normal 0.0 - 7.0 [facility] Comment on above: Performed By: #### 2 22252 #### [facility],[address] [place] [address] Erythrocyte distribution width (RBC) [Ratio] 12.4 % Normal 12.0 - 15.6 [facility] Comment on above: Performed By: #### 2 41556 #### [facility],[address] [place] [address] Hematocrit (Bld) [Volume fraction] 41.4 % Normal 34.0 - 46.0 [facility] Comment on above: Performed By: #### 2 00214 #### [facility],[address] [place], [place] [id number] Hemoglobin (Bld) [Mass/Vol] 13.6 g/dL Normal 12.0 - 16.0 [facility] Comment on above: Performed By: #### 2 33936 #### [facility],[address] [place] [address] Lymph # 1.45 x10EE3/UL Normal 0.80 - 2.80 [facility] Comment on above: Performed By: #### 2 79630 #### [facility],[address] [place] [address] Lymphocytes/100 WBC (Bld) 28.6 % Normal 20.0 - 45.0 [facility] Comment on above: Performed By: #### 2 36418 #### [facility],[address] [place], [place] [id number] MANUAL DIFF N/A Normal [facility] Comment on above: Performed By: #### 2 46999 #### [facility],[address] [place] [address] MCH (RBC) [Entitic mass] 32 pg Normal 27 - 33 [facility] Comment on above: Performed By: #### 2 65858 #### [facility],[address] [place], [place] [id number] MCHC 33 X10 3 Normal 32 - 36 [facility] Comment on above: Performed By: #### 2 41338 #### [facility],[address] [place], [place] [phone] MCV (RBC) [Entitic vol] 98 fL Normal 80 - 99 [facility] Comment on above: Performed By: #### 2 82761 #### [facility],[address] [place] [address] [place] # 0.36 x10EE3/UL Normal 0.20 - 1.00 [facility] Comment on above: Performed By: #### 2 10686 #### [facility],[address] [place] [address] MONOS % 7.2 % Normal 0.0 - 10.0 [facility] Comment on above: Performed By: #### 2 66901 #### [facility],[address] [place] [address] Morphology Hank (Bld) [Interp] N/A Normal [facility] Comment on above: Performed By: #### 2 12429 #### [facility],[address] [place] [address] Neut # 3.03 x10EE3/UL Normal 1.50 - 7.10 [facility] Comment on above: Performed By: #### 2 29296 #### [place] [address] Neutrophils/100 WBC (Bld) 59.8 % Normal 46.0 - 76.0 [facility] Comment on above: Performed By: #### 2 40795 #### [place] [address] PLATELET 246 x10EE3/UL Normal 150 - 450 [facility] Comment on above: Performed By: #### 2 74530 #### [place] [address] Platelet mean volume (Bld) [Entitic vol] 8.2 fL Normal 6.6 - 10.5 [facility] Comment on above: Result Comment: AUTO MATED DIFFERENTIAL Performed By: #### 2 26816 #### [place] [address] RBC 4.23 x 10EE6/UL Normal 4.10 - 5.30 [facility] Comment on above: Performed By: #### 2 65848 #### [place] [address] WBC 5.1 x 10EE3/UL Normal 4.5 - 10.8 [facility] Comment on above: Performed By: #### 2 88805 #### [address] [address] CMP with eGFRon 02-16-[address] AGE [address] [facility] Comment on above: Performed By: #### 2 96925 #### [facility],[address] [place], [place] [id number] Albumin [Mass/Vol] 3.5 g/dL Normal 3.4 - 5.0 [facility] Comment on above: Performed By: #### 2 81131 #### [facility],[address] [place] [address] Albumin/Globulin [Mass ratio] 0.9 {ratio} Normal 0.9 - 1.6 [facility] Comment on above: Performed By: #### 2 94102 #### [facility],[address] [place] [address] ALK PHOS 93 U/L Normal 46 - 116 [facility] Comment on above: Performed By: #### 2 26172 #### [facility],[address] [place], [place] [id number] ALT [Catalytic activity/Vol] 33 U/L Normal 16 - 63 [facility] Comment on above: Performed By: #### 2 18464 #### [facility],[address] [place], [place] [phone] Anion gap [Moles/Vol] 10 mmol/L Normal 10 - 20 [facility] Comment on above: Performed By: #### 2 40703 #### [facility],[address] [place] [address] 85808 AST [Catalytic activity/Vol] 24 U/L Normal 13 - 39 [facility] Comment on above: Performed By: #### 2 14820 #### [facility],[address] [place] [address] B/C RATIO 24 ratio Normal 0 - 30 [facility] Comment on above: Performed By: #### 2 65193 #### [facility],[address],[place] [address] Bilirubin [Mass/Vol] 0.4 mg/dL Normal 0.2 - 1.0 [facility] Comment on above: Performed By: #### 2 73198 #### [facility],[address] [place] [address]1134 Calcium [Mass/Vol] 9.1 mg/dL Normal 8.5 - 10.1 [facility] Comment on above: Performed By: #### 2 86064 #### [facility],[address] [place] [address] 97144 Chloride [Moles/Vol] 103 mmol/L Normal 98 - 107 [facility] Comment on above: Performed By: #### 2 08047 #### [facility],[address] [place], [place] [phone] CMP with eGFR Normal [facility] Comment on above: Result Comment: COMP REHENSIVE METABOLIC PANEL Performed By: #### 2 56078 #### [facility],[address] [place] [address]50 CO2 [Moles/Vol] 32.8 mmol/L High 21.0 - 32.0 [facility] Comment on above: Performed By: #### 2 12027 #### [facility],[address] [place] [address] 12049 Creatinine [Mass/Vol] 0.67 mg/dL Normal 0.55 - 1.02 [facility] Comment on above: Performed By: #### 2 44945 #### [facility],[address] [place] [address]994 GFR/1.73 sq M.predicted among non-blacks MDRD (S/P/Bld) [Vol rate/Area] mL/min/{1.73_m2} Normal 60 - 999 [facility] Comment on above: Performed By: #### 2 95261 #### [facility],[address] [place], [place] [id number] Result Comment: ACCO RDING TO THE NATIONAL KIDNEY DISEASE EDUCATION PROGRAM(NKDE), A NORMAL eGFR IS A VALUE GREATER THAN OR EQUAL TO 60 ML/MIN/1.73 SQ METERS. CHRONIC KIDNEY DISEASE: <60mL/MIN/1.73 SQ METERS KIDNEY FAILURE: <15mL/MIN/1.73 SQ METERS THIS TEST SHOULD ONLY BE USED FOR PATIENTS 18 YEARS OF AGE AND OLDER. Globulin (S) [Mass/Vol] 3.7 g/dL Normal 1.5 - 3.8 [facility] Comment on above: Performed By: #### 2 57801 #### [facility],[address] [place] [address] Glucose [Mass/Vol] 107 mg/dL High 74 - 106 [facility] Comment on above: Performed By: #### 2 22180 #### [facility],[address] [place] [address]78 Potassium [Moles/Vol] 3.6 mmol/L Normal 3.5 - 5.1 [facility] Comment on above: Performed By: #### 2 88705 #### [facility],[address] [place] [address] Protein [Mass/Vol] 7.2 g/dL Normal 6.4 - 8.2 [facility] Comment on above: Performed By: #### 2 69745 #### [facility],[address] [place] [address] 32090 Sodium [Moles/Vol] 142 mmol/L Normal 136 - 145 [facility] Comment on above: Performed By: #### 2 03346 #### [facility],[address] [place] [address]451 Urea nitrogen [Mass/Vol] 16 mg/dL Normal 7 - 18 [facility] Comment on above: Performed By: #### 2 05465 #### [facility],[address] [place] [address] 71324 FOLATESon 02-16-2024 FOLATES 31.0 ng/ml Normal 8.6 - 58.9 [facility] Comment on above: Performed By: #### 2 73292 #### [facility],[address] [place] [address] 94820 IRON AND TIBCon 02-16-2024 %SATURATION 31 % Normal [facility] Comment on above: Performed By: #### 2 93655 #### [facility],[address] [place] [address] 05002 Iron [Mass/Vol] 96 ug/dL Normal 50 - 170 [facility] Comment on above: Performed By: #### 2 65856 #### [facility],[address] [place] [address] 14731 TIBC 313 ug/dl Normal 250 - 450 [facility] Comment on above: Performed By: #### 2 13664 #### [facility],[address] [place] [address] 99587 UIBC 217 ug/dL Normal 155 - 355 [facility] Comment on above: Performed By: #### 2 46093 #### [facility],[address] [place] [address] 45009 LIPID PROFILEon 02-16-2024 Cholesterol [Mass/Vol] 136 mg/dL Normal 0 - 240 [facility] Comment on above: Performed By: #### 2 38642 #### [facility],[address] [place] [address] 45008 Cholesterol in HDL [Mass/Vol] 60 mg/dL Normal 40 - 60 [facility] Comment on above: Performed By: #### 2 75208 #### [facility],[address] [place] [address] 31573 Cholesterol in LDL [Mass/Vol] 49 mg/dL Normal 0 - 129 [facility] Comment on above: Performed By: #### 2 93120 #### [facility],[address] [place] [address]552 Cholesterol.total/Chol esterol in HDL [Mass ratio] 2.3 {ratio} Normal 0.0 - 5.0 [facility] Comment on above: Performed By: #### 2 49624 #### [facility],[address] [place] [address]61 Lipid [address] [facility] Comment on above: Result Comment: LIPI D PROFILE Performed By: #### 2 12921 #### [facility],[address] [place] [address]223 Triglyceride [Mass/Vol] 134 mg/dL Normal 0 - 150 [facility] Comment on above: Performed By: #### 2 29422 #### [facility],[address] [place] [address] 16959 T4-FREE (FREE THYROXINE)on Free T4 [Mass/Vol] 0.80 ng/dL Normal 0.76 - 1.46 [facility] Comment on above: Result Comment: P otential of falsely elevated results when biotin concentrations are > 10 ng/mL. Performed By: #### 2 73239 #### [facility],[address] [place] [address] 67259 TSHon 02-16-2024 TSH Qn 3.42 m[IU]/L Normal 0.35 - 3.74 [facility] Comment on above: Performed By: #### 2 21033 #### [facility],[address] [place] [address] 10950 VITAMIN B-12on 02-16-2024 Cobalamin (Vitamin B12) [Mass/Vol] 1071 pg/mL High 193 - 986 [facility] Comment on above: Performed By: #### 2 14219 #### [facility],[address] [place] [address] 75419 VITAMIN D, 25 HYDROXYon 10- VitD 35.90 ng/mL Normal 30.00 - 100 [facility] Comment on above: Result Comment: 25-O HD3 indicates both endogenous production and supplementation. 25-OHD2 is an indicator of exogenous sources, such as diet or supplementation. Therapy is based on measurement of Total 25-OHD, with levels <20 ng/mL indicative of Vitamin D deficiency, while levels between 20 ng/mL and 30 ng/mL suggest insufficiency. Optimal levels are >=30ng/mL. Vitamin D, 25-OH D3 Not Established Vitamin D, 25-OH D2 Not Established Performed By: #### 2 44833 #### [facility],[address] [place] [address] 58551 SCRN MAMM (CAD)W/DAWIT BILATo n 12-22-2023 SCRN MAMM (CAD)W/DAWIT BILAT [facility] Imaging Services [address] [place] [address] [id number] SCRN MAMM (CAD)W/DAWIT BILAT MR#: [id number] Acct: [id number] Name: SHAYNE MONTES Rep #: [id number] : 1945 F 78 From: Michael kidd MD PCP: Dr. Johan Berg MD Status: [facility] Study: SCRN MAMM (CAD)W/DAWIT BILAT Date of Exam: 11/08 Exam# [id number] Ordering Dr: Parth Walton MD [id number] MAMMOGRAPHY - BILATERAL SCREENING REASON FOR EXAM: Female, 78 years old. Routine annual screening examination. PERTINENT HISTORY: Personal history of breast cancer. Prior right lumpectomy with chemotherapy and radiation. Daughter with breast cancer. Aunt with breast cancer. TECHNIQUE: Digital bilateral breast dawit (3D mammographic acquisition) in the CC and MLO projections. 2-D mediolateral oblique (MLO) and craniocaudad (CC) views of both breasts were obtained. CAD: Full Field Digital Mammography with Computer Added Detection was performed. COMPARISON: Comparison is made with prior study December 18, 2022 and November 28, 2021. FINDINGS: Breast Composition: The breasts are heterogeneously dense, which may obscure small masses. There are no dominant masses or suspicious calcifications. Once again, the patient is status post lumpectomy in the upper outer quadrant of the right breast with resultant postoperative scarring and breast deformity. Surgical clips are also seen in the right axilla. No other significant abnormalities are identified. There has been no significant change since the prior study. BI/SCRN MAMM (CAD)W/DAWIT BILAT IMPRESSION: Stable bilateral screening mammogram. Yearly follow-up mammogram recommended. (A) ASSESSMENT CATEGORY: BIRADS Category 2: Benign. A letter regarding these results will be sent to the patient by the facility within 30 days. Approximately 10% of breast cancers are not detected by mammography. A normal mammogram should not delay biopsy of a clinically suspicious abnormality. [id number] Electronically Signed: Michael Napoles MD at 10:07 EDT Reading Location ID and State: [address] [place] [address] , Service support , CC: Dr. Johan Berg MD; Dr. Parth Walton MD Patient Account Liaison: Signed Normal [facility] ANKLE COMPLETE RTon 11-09-19 ANKLE COMPLETE RT [address] [address] Patient: SHAYNE MONTES Phone#: : 1945 Age: 78 Gender: F Pt. Type: Out Account: [id number] Location: Ordering: JOHAN BERG Exam Date: 11/09/2023/17:16 Family Phys: Charge Code: 191165 Physician: Sabine Order #: [id number] Dose#: PROCEDURE: X-RAY ANKLE COMPLETE RT MIN 3 VIEWS COMPARISON: None. INDICATIONS: Pain. FINDINGS: BONES: A 7 millimeter calcaneal spur is present. Mild degenerative changes are present at the ankle. There is no evidence of acute bone abnormality. SOFT TISSUES: Negative. No visible soft tissue swelling. EFFUSION: None visible. OTHER: Negative. CONCLUSION: 1. There is no evidence of acute abnormality. Dictated by: Mariela Stafford MD on 11/09/2023 at 17:44 Approved by: Mariela Stafford MD on 11/09/2023 at 17:[address] [facility] FOOT COMPLETE RTon FOOT COMPLETE RT [place] [address] Patient: SHAYNE MONTES Phone#: : 1945 Age: 78 Gender: F Pt. Type: Out Account: [id number] Location: Ordering: JOHAN BERG Exam Date: 11/09/2023/17:11 Family Phys: Charge Code: [id number] Physician: Sabine Order #: [id number] Dose#: PROCEDURE: X-RAY FOOT RT COMPLETE MIN 3 VIEWS COMPARISON: None. INDICATIONS: Pain. FINDINGS: BONES: The foot and ankle are present. Subcortical cysts are present at the base the proximal phalanx of the 2nd digit. Hallux valgus deformity is present. A calcaneal spur is present. SOFT TISSUES: Negative. No visible soft tissue swelling. EFFUSION: None visible. OTHER: Negative. CONCLUSION: 1. Degenerative changes are present without acute abnormality. Dictated by: Mariela Stafford MD on 11/09/2023 at 17:42 Approved by: Mariela Stafford MD on 11/09/2023 at 17:[address] [facility] Absolute lymphocyte countOrd ered By: Tomasa Winter on 11-27-2022 Lymphocytes Auto (Unsp spec) [#/Vol] 1.76 10*3/uL 0.83-4.51 [facility] Basophil percentageOrdered B y: Tomasa Winter on 11-27-2022 Basophils/100 WBC (Bld) 0.8 % 0-1 [facility] Chloride [Moles/Vol] 106 mmol/L 98-107 [facility] Eosinophils/100 WBC (Bld) 2.5 % 0-5 [facility] Glucose [Mass/Vol] 91 mg/dL 74-106 [facility] Neutrophils (Bld) [#/Vol] 3.6 10*3/uL 2.0-7.7 [facility] Neutrophils/100 WBC (Bld) 59.3 % 47-70 [facility] Potassium [Moles/Vol] 4.1 mmol/L 3.5-5.1 [facility] Sodium [Moles/Vol] 140 mmol/L 136-145 [facility] WBC (Bld) [#/Vol] 6.1 10*3/uL 4.4-11.0 [facility] Blood erythrocytes count (nu mber/volume)Ordered By: Tomasa Winter on 11-27-2022 RBC (Bld) [#/Vol] 4.13 10*6/uL 4.2-5.4 [facility] Blood hemoglobin measurement (mass/volume)Ordered By: Tomasa Winter on 11-27-2022 Hemoglobin (Bld) [Mass/Vol] 13.2 g/dL 12.0-15.0 [facility] Blood lymphocytes/100 leukoc ytesOrdered By: Tomasa Winter on 11-27-2022 Lymphocytes/100 WBC (Bld) 28.8 % 19-41 [facility] Blood monocytes/100 leukocyt esOrdered By: Tomasa Winter on 11-27-2022 Monocytes/100 WBC (Bld) 8.3 % 0-10 [facility] Blood platelet mean volumeOr dered By: Tomasa Winter on 11-27-2022 Platelet mean volume (Bld) [Entitic vol] 11.4 fL 6.2-12.0 [facility] Determination of erythrocyte mean corpuscular volume (MCV)Ordered By: Tomasa Winter on 11-27-2022 MCV (RBC) [Entitic vol] 99.0 fL 81-99 [facility] Hematocrit Auto (Bld) [Volum e fraction]Ordered By: Tomasa Winter on 11-27-2022 Hematocrit (Bld) [Volume fraction] 40.9 % 37-47 [facility] Laboratory - Chemistry and C hemistry - challengeOrdered By: Tomasa Winter on 11-27-2022 CO2 [Moles/Vol] 30.0 mmol/L 21.0-32.0 [facility] Urea nitrogen/Creatinine [Mass ratio] 27.2 mg/mg 10-20 [facility] Laboratory - Hematology and Cell countsOrdered By: Tomasa Winter on 11-27-2022 Erythrocyte distribution width (RBC) [Entitic vol] 43.9 fL 35.1-43.9 [facility] Erythrocyte distribution width (RBC) [Ratio] 12.0 % 11.6-14.6 [facility] Immature granulocytes/100 WBC (Bld) 0.300 % 0.0-0.9 [facility] Comment on above: IG% - Immature Granu locytes (promyelocytes, myelocytes and metamyelocytes) > 1% indicates that a LEFT SHIFT is Present. MCH (RBC) [Entitic mass] 32.0 pg 27.0-32.0 [facility] Nucleated RBC/100 WBC (Bld) [Ratio] 0 % 0-5 [facility] MCHC Auto (RBC) [Mass/Vol]Or dered By: Tomasa Winter on 11-27-2022 MCHC (RBC) [Mass/Vol] 32.3 g/dL 32-36 [facility] No Panel InformationOrdered By: Tomasa Winter on 11-27-2022 Estimated Creatinine Clearance Calc 43.89 ml/min [facility] Estimated GFR (MDRD) Amer 88 mL/min >60 [facility] Comment on above: GFR Calc Estimated GFR (MDRD) Non-Af Amer 73 mL/min >60 [facility] Comment on above: Non- GFR Calc Thyroid Stimulating Hormone (TSH) 1.99 uIU/mL 0.358-3.74 [facility] Troponin I High Sensitivity 6 pg/mL 3.0-54.0 [facility] Comment on above: Please Note: New [place] t Units and Gender Specific Reference Ranges. For more information see Policy Stat Procedure [place] High Sensitivity Troponin (TNIH) and attachments. Platelets bldOrdered By: Renetta Winter on 11-27-2022 Platelets (Bld) [#/Vol] 172 10*3/uL 150-450 [facility] Serum or plasma calcium quinten urement (mass/volume)Ordered By: Tomasa Winter on 11-27-2022 Calcium [Mass/Vol] 9.1 mg/dL 8.5-10.1 [facility] Serum or plasma creatinine m easurement (mass/volume)Ordered By: Tomasa Winter on 11-27-2022 Creatinine [Mass/Vol] 0.81 mg/dL 0.55-1.02 [facility] Comment on above: The validity of the calculated GFR & GFRAA in patients over 70 years has not been determined. Clinical correlation is essential. Serum or plasma urea nitroge n measurement (mass/volume)Ordered By: Tomasa Winter on 11-27-2022 Urea nitrogen [Mass/Vol] 22 mg/dL 7-18 [facility] Thin prep Papanicolaou smear with manual screeningOrdered By: Tomasa Winter on 11-27-2022 Thin prep Papanicolaou smear with manual screening 4 5-15 [facility] Absolute lymphocyte countOrd ered By: Parth Walton on 10-02-2022 Lymphocytes Auto (Unsp spec) [#/Vol] 1.68 10*3/uL 0.83-4.51 [facility] Basophil percentageOrdered B y: Parth Walton on 10-02-2022 Basophils/100 WBC (Bld) 0.7 % 0-1 [facility] Bilirubin [Mass/Vol] 0.60 mg/dL 0.20-1.00 [facility] Comment on above: For patients on eltr ombopag therapy, use of Dimension [place] TBIL is not recommended. Chloride [Moles/Vol] 105 mmol/L 98-107 [facility] Eosinophils/100 WBC (Bld) 2.4 % 0-5 [facility] Glucose [Mass/Vol] 97 mg/dL 74-106 [facility] LDH [Catalytic activity/Vol] 194 U/L 84-246 [facility] Neutrophils (Bld) [#/Vol] 3.2 10*3/uL 2.0-7.7 [facility] Neutrophils/100 WBC (Bld) 59.0 % 47-70 [facility] Potassium [Moles/Vol] 3.6 mmol/L 3.5-5.1 [facility] Protein [Mass/Vol] 7.5 g/dL 6.4-8.2 [facility] Sodium [Moles/Vol] 138 mmol/L 136-145 [facility] WBC (Bld) [#/Vol] 5.5 10*3/uL 4.4-11.0 [facility] Blood erythrocytes count (nu mber/volume)Ordered By: Parth Walton on 10-02-2022 RBC (Bld) [#/Vol] 4.07 10*6/uL 4.2-5.4 [facility] Blood hemoglobin measurement (mass/volume)Ordered By: Parth Walton on 10-02-2022 Hemoglobin (Bld) [Mass/Vol] 13.1 g/dL 12.0-15.0 [facility] Blood lymphocytes/100 leukoc ytesOrdered By: Parth Walton on 10-02-2022 Lymphocytes/100 WBC (Bld) 30.6 % 19-41 [facility] Blood monocytes/100 leukocyt esOrdered By: Parth Walton on 10-02-2022 Monocytes/100 WBC (Bld) 7.1 % 0-10 [facility] Blood platelet mean volumeOr dered By: Parth Walton on 10-02-2022 Platelet mean volume (Bld) [Entitic vol] 11.1 fL 6.2-12.0 [facility] Determination of erythrocyte mean corpuscular volume (MCV)Ordered By: Parth Walton on 10-02-2022 MCV (RBC) [Entitic vol] 99.3 fL 81-99 [facility] Hematocrit Auto (Bld) [Volum e fraction]Ordered By: Parth Walton on 10-02-2022 Hematocrit (Bld) [Volume fraction] 40.4 % 37-47 [facility] Laboratory - Chemistry and C hemistry - challengeOrdered By: Parth Walton on 10-02-2022 ALP [Catalytic activity/Vol] 79 U/L 45-117 [facility] ALT [Catalytic activity/Vol] 32 U/L 13-56 [facility] CO2 [Moles/Vol] 29.0 mmol/L 21.0-32.0 [facility] Globulin (S) [Mass/Vol] 3.7 g/dL 2.2-4.2 [facility] Urea nitrogen/Creatinine [Mass ratio] 31.7 mg/mg 10-20 [facility] Laboratory - Hematology and Cell countsOrdered By: Parth Walton on 10-02-2022 Erythrocyte distribution width (RBC) [Entitic vol] 44.8 fL 35.1-43.9 [facility] Erythrocyte distribution width (RBC) [Ratio] 12.3 % 11.6-14.6 [facility] Immature granulocytes/100 WBC (Bld) 0.200 % 0.0-0.9 [facility] Comment on above: IG% - Immature Granu locytes (promyelocytes, myelocytes and metamyelocytes) > 1% indicates that a LEFT SHIFT is Present. MCH (RBC) [Entitic mass] 32.2 pg 27.0-32.0 [facility] Nucleated RBC/100 WBC (Bld) [Ratio] 0 % 0-5 [facility] MCHC Auto (RBC) [Mass/Vol]Or dered By: Parth Walton on 10-02-2022 MCHC (RBC) [Mass/Vol] 32.4 g/dL 32-36 [facility] No Panel InformationOrdered By: Parth Walton on 10-02-2022 Estimated Creatinine Clearance Calc 35.55 ml/min [facility] Estimated GFR (MDRD) Amer 111 mL/min >60 [facility] Comment on above: GFR Calc Estimated GFR (MDRD) Non-Af Amer 92 mL/min >60 [facility] Comment on above: Non- GFR Calc Platelets bldOrdered By: Troy Walton on 10-02-2022 Platelets (Bld) [#/Vol] 181 10*3/uL 150-450 [facility] Serum or plasma albumin quinten urement (mass/volume)Ordered By: Parth Walton on 10-02-2022 Albumin [Mass/Vol] 3.8 g/dL 3.2-5.0 [facility] Serum or plasma albumin/glob ulin mass ratioOrdered By: Parth Walton on 10-02-2022 Albumin/Globulin [Mass ratio] 1.0 {ratio} 0.9-2.4 [facility] Serum or plasma calcium quinten urement (mass/volume)Ordered By: Parth Walton on 10-02-2022 Calcium [Mass/Vol] 9.4 mg/dL 8.5-10.1 [facility] Serum or plasma creatinine m easurement (mass/volume)Ordered By: Parth Anton on 10-02-2022 Creatinine [Mass/Vol] 0.66 mg/dL 0.55-1.02 [facility] Comment on above: The validity of the calculated GFR & GFRAA in patients over 70 years has not been determined. Clinical correlation is essential. Serum or plasma urea nitroge n measurement (mass/volume)Ordered By: Parth Walton on 10-02-2022 Urea nitrogen [Mass/Vol] 21 mg/dL 7-18 [facility] Thin prep Papanicolaou smear with manual screeningOrdered By: Parth Walton on 10-02-2022 Thin prep Papanicolaou smear with manual screening 29 U/L 15-37 [facility] Thin prep Papanicolaou smear with manual screening 4 5-15 [facility] Basophil percentageon 2021 Chloride [Moles/Vol] 106 mmol/L 98-107 [facility] Work Phone: Glucose [Mass/Vol] 89 mg/dL 74-106 [facility] Work Phone: Potassium [Moles/Vol] 3.6 mmol/L 3.5-5.1 [facility] Work Phone: Sodium [Moles/Vol] 139 mmol/L 136-145 [facility] Work Phone: Laboratory - Chemistry and C hemistry - challengeon 11-27-2021 CO2 [Moles/Vol] 32.0 mmol/L 21.0-32.0 [facility] Work Phone: Urea nitrogen/Creatinine [Mass ratio] 30.8 mg/mg 10-20 [facility] Work Phone: No Panel Informationon 11-27 Estimated GFR (MDRD) Amer 114 mL/min >60 [facility] Work Phone: Comment on above: GFR Calc Estimated GFR (MDRD) Non-Af Amer 94 mL/min >60 [facility] Work Phone: Comment on above: Non- GFR Calc Serum or plasma calcium quinten urement (mass/volume)on 11-27-2021 Calcium [Mass/Vol] 9.3 mg/dL 8.5-10.1 [facility] Work Phone: Serum or plasma creatinine m easurement (mass/volume)on 11-27-2021 Creatinine [Mass/Vol] 0.65 mg/dL 0.55-1.02 [facility] Work Phone: Comment on above: The validity of the calculated GFR & GFRAA in patients over 70 years has not been determined. Clinical correlation is essential. Serum or plasma urea nitroge n measurement (mass/volume)on 11-27-2021 Urea nitrogen [Mass/Vol] 20 mg/dL 7-18 [facility] Work Phone: Thin prep Papanicolaou smear with manual screeningon 11-27-2021 Thin prep Papanicolaou smear with manual screening 1 5-15 [facility] Work Phone: Absolute lymphocyte counton 10-03-2021 Lymphocytes Auto (Unsp spec) [#/Vol] 1.57 10*3/uL 0.83-4.51 [facility] Work Phone: Basophil percentageon 2021 Basophils/100 WBC (Bld) 0.7 % 0-1 [facility] Work Phone: Bilirubin [Mass/Vol] 0.30 mg/dL 0.20-1.00 [facility] Work Phone: Comment on above: For patients on eltr ombopag therapy, use of Dimension [place] TBIL is not recommended. Chloride [Moles/Vol] 105 mmol/L 98-107 [facility] Work Phone: Eosinophils/100 WBC (Bld) 3.0 % 0-5 [facility] Work Phone: Glucose [Mass/Vol] 107 mg/dL 74-106 [facility] Work Phone: Comment on above: Fasting Glucose resu lt from 100 to 125 mg/dL suggests IMPAIRED HOMEOSTASIS per A.D.A. criteria. Neutrophils (Bld) [#/Vol] 3.7 10*3/uL 2.0-7.7 [facility] Work Phone: Neutrophils/100 WBC (Bld) 62.3 % 47-70 [facility] Work Phone: Potassium [Moles/Vol] 3.7 mmol/L 3.5-5.1 [facility]: Protein [Mass/Vol] 7.1 g/dL 6[facility]4-8.2 [facility]: Sodium [Moles/Vol] 143 mmol/L 136-145 [facility] Work Phone: WBC (Bld) [#/Vol] 6.0 10*3/uL 4.4-11.0 [facility] Work Phone: Blood erythrocytes count (nu mber/volume)on 10-03-2021 RBC (Bld) [#/Vol] 4.11 10*6/uL 4.2-5.4 [facility]: Blood hemoglobin measurement (mass/volume)on 10-03-2021 Hemoglobin (Bld) [Mass/Vol] 13.4 g/dL 12.0-15.0 [facility] Work Phone: Blood lymphocytes/100 leukoc yteson 10-03-2021 Lymphocytes/100 WBC (Bld) 26.2 % 19-41 [facility] Work Phone: Blood monocytes/100 leukocyt eson 10-03-2021 Monocytes/100 WBC (Bld) 7.5 % 0-10 [facility] Work Phone: Blood platelet mean volumeon 10-03-2021 Platelet mean volume (Bld) [Entitic vol] 10.4 fL 6.2-12.0 [facility] Work Phone: Determination of erythrocyte mean corpuscular volume (MCV)on 10-03-2021 MCV (RBC) [Entitic vol] 98.5 fL 81-99 [facility] Work Phone: [phone] Hematocrit Auto (Bld) [Volum e fraction]on 10-03-2021 Hematocrit (Bld) [Volume fraction] 40.5 % 37-47 [facility] Work Phone: [phone] Laboratory - Chemistry and C hemistry - challengeon 10-03-2021 ALP [Catalytic activity/Vol] 80 U/L 45-117 [facility] Work Phone: ALT [Catalytic activity/Vol] 35 U/L 13-56 [facility] Work Phone: CO2 [Moles/Vol] 31.0 mmol/L 21.0-32.0 [facility] Work Phone: [phone] Globulin (S) [Mass/Vol] 3.3 g/dL 2.2-4.2 [facility] Work Phone: Urea nitrogen/Creatinine [Mass ratio] 28.4 mg/mg 10-20 [facility] Work Phone: Laboratory - Hematology and Cell countson 10-03-2021 Erythrocyte distribution width (RBC) [Entitic vol] 42.4 fL 35.1-43.9 [facility] Work Phone: [phone] Erythrocyte distribution width (RBC) [Ratio] 11.7 % 11.6-14.6 [facility] Work Phone: [phone] Immature granulocytes/100 WBC (Bld) 0.300 % 0.0-0.9 [facility] Work Phone: [phone] Comment on above: IG% - Immature Granu locytes (promyelocytes, myelocytes and metamyelocytes) > 1% indicates that a LEFT SHIFT is Present. MCH (RBC) [Entitic mass] 32.6 pg 27.0-32.0 [facility] Work Phone: Nucleated RBC/100 WBC (Bld) [Ratio] 0 % 0-5 [facility] Work Phone: MCHC Auto (RBC) [Mass/Vol]on 10-03-2021 MCHC (RBC) [Mass/Vol] 33.1 g/dL 32-36 [facility] Work Phone: No Panel Informationon 10-03 Estimated Creatinine Clearance Calc 36.12 ml/min [facility] Work Phone: Estimated GFR (MDRD) Amer 104 mL/min >60 [facility] Work Phone: Comment on above: GFR Calc Estimated GFR (MDRD) Non-Af Amer 86 mL/min >60 [facility] Work Phone: Comment on above: Non- GFR Calc Platelets bldon 10-03-2021 Platelets (Bld) [#/Vol] 180 10*3/uL 150-450 [facility] Work Phone: Serum or plasma albumin quinten urement (mass/volume)on 10-03-2021 Albumin [Mass/Vol] 3.8 g/dL 3.2-5.0 [facility] Work Phone: Serum or plasma albumin/glob ulin mass ratioon 10-03-2021 Albumin/Globulin [Mass ratio] 1.2 {ratio} 0.9-2.4 [facility] Work Phone: Serum or plasma calcium quinten urement (mass/volume)on 10-03-2021 Calcium [Mass/Vol] 9.4 mg/dL 8.5-10.1 [facility] Work Phone: Serum or plasma creatinine m easurement (mass/volume)on 10-03-2021 Creatinine [Mass/Vol] 0.70 mg/dL 0.55-1.02 [facility] Work Phone: Comment on above: The validity of the calculated GFR & GFRAA in patients over 70 years has not been determined. Clinical correlation is essential. Serum or plasma urea nitroge n measurement (mass/volume)on 10-03-2021 Urea nitrogen [Mass/Vol] 20 mg/dL 7-18 [facility] Work Phone: Thin prep Papanicolaou smear with manual screeningon 10-03-2021 Thin prep Papanicolaou smear with manual screening 28 U/L 15-37 [facility] Work Phone: Thin prep Papanicolaou smear with manual screening 7 5-15 [facility] Work Phone: Thin prep Papanicolaou smear with manual screening 197 U/L 84-246 [facility] Work Phone: Basophil percentageon 2021 Basophil percentage < 0.9 mg/dL 0.55-1.02 [facility] Work Phone: No Panel Informationon 10-01 Bedside Estimated GFR (eGFR) > 60.0000 mL/min >60 [facility] Work Phone: Coronavirus 2019on 0 COVID 19 Result GOSPEL SINGER Normal Negative for COVID19 (SARS CoV2) by PCR. [facility] Comment on above: Result Comment: Nega tive for This test was developed and its performance characteristics determined by [facility] [place]. This test has been authorized by FDA under an Emergency Use Authorization (EUA). This test has been validated in accordance with the FDA's Guidance Document Policy for Diagnostics Testing in Laboratories Certified to Perform High Complexity Testing under CLIA prior to Emergency use Authorization for Coronavirus Disease 2019 during the Public Health Emergency issued on July 16, 2019. COVID19 (SARS This test was developed and its performance characteristics determined by [facility] [place]. This test has been authorized by FDA under an Emergency Use Authorization (EUA). This test has been validated in accordance with the FDA's Guidance Document Policy for Diagnostics Testing in Laboratories Certified to Perform High Complexity Testing under CLIA prior to Emergency use Authorization for Coronavirus Disease 2019 during the Public Health Emergency issued on July 16, 2019. CoV2) by PCR. This test was developed and its performance characteristics determined by [facility] [place]. This test has been authorized by FDA under an Emergency Use Authorization (EUA). This test has been validated in accordance with the FDA's Guidance Document Policy for Diagnostics Testing in Laboratories Certified to Perform High Complexity Testing under CLIA prior to Emergency use Authorization for Coronavirus Disease 2019 during the Public Health Emergency issued on July 16, 2019. Coronavirus 2019on 0 COVID 19 Source GOSPEL SINGER GOSPEL SINGER Normal [facility] Erythrocyte distribution wid th standard deviationon 10-12-2018 Erythrocyte distribution width (RBC) [Entitic vol] 47.4 fL High 35.1-43.9 [facility] Laboratory - Hematology and Cell countson 10-12-2018 Erythrocyte distribution width (RBC) [Ratio] 13.6 % 11.6-14.6 [facility] Total cell counton 9 Cells counted [employer] (Bld/Tiss) [#] Not Reportable [facility] Basophil percentageon 2017 Basophil percentage 2.7 mg/dL 2.5-4.9 [facility] No Panel Informationon 04-14 Differential Comment See comment [facility] Comment on above: LEUKOCYTOPENIAMODERA TE THROMBOCYOPENIA Review by pathologiston 03-19 Pathologist review Hank (Unsp spec) [Interp] Reviewed [facility] Comment on above: Previous reported re sult: Narcisa hui Edited by: RILEY on 04/15/18:1301Pancytopenia.Clinical correlation necessary.Toney Oakley M.D. 04/15/18 AMENDED REPORT 04/15/18 1301 PATH REV previously reported as: Narcisa hui Blood platelet adequacy dete ction by light microscopyon 03-25-2018 Platelets LM Ql (Bld) ADEQUATE ADEQ [facility] Dohle bodies detectionon Dohle body LM Ql (Bld) 1+ [facility] Eosinophils/100 WBC Auto (Bl d)on 03-25-2018 Eosinophils/100 WBC (Bld) 1 % 0-5 [facility] Hypochromatic red blood cell detectionon 03-25-2018 Hypochromia Ql (Bld) RARE [facility] Laboratory - Hematology and Cell countson 03-25-2018 Band form neutrophils/100 WBC (Bld) 5 % 0-5 [facility] Lymphocytes/100 WBC (Bld) 14 % Low 19-41 [facility] Metamyelocytes/100 WBC (Bld) 2 % High 0-1 [facility] Monocytes/100 WBC (Bld) 15 % High 0-10 [facility] Myelocytes/100 WBC (Bld) 5 % High 0-0 [facility] Neutrophils/100 WBC (Bld) 55 % 47-70 [facility] Macrocytes detectionon 03-25 Macrocytes Ql (Bld) 1+ [facility] No Panel Informationon 03-25 Promyelocytes % 3 High 0-0 [facility] Toxic leukocyte granulation detectionon 03-25-2018 Toxic granules LM Ql (Bld) 1+ [facility] Blood polychromasia detectio n by light microscopyon 03-04-2018 Polychromasia LM Ql (Bld) 1+ [facility] Laboratory - Hematology and Cell countson 03-04-2018 Anisocytosis Ql (Bld) 1+ [facility] No Panel Informationon 03-04 Blast Cells % 2 % High 0-0 [facility] No Panel Informationon 02-24 Miscellaneous Test See comment [facility] Comment on above: TEST RESULT LIMITSBC R-ABL1, CML/ALL, PCR, [id number] (b2a2) transcript % <0.0032 % (sensitivity limit of assay)e14a2 (b3a2) transcript % 01 <0.0032 % (sensitivity limit of assay)e1a2 transcript % <0.0032 % (sensitivity limit of assay)Interpretation: NEGATIVE for the BCR-ABL1 e1a2 (p190), e13a2 (b2a2, p210) and e14a2 (b3a2, p210) fusion transcripts. These results do not rule out the presence of rare BCR-ABL1 transcripts not detected by this assay.Director Review Emmanuelle Campos, PhD, [facility] Director, Molecular Genetics [facility] [place], [place] Background This assay can detect three different types of BCR-ABL1 fusion transcripts associated with CML, ALL, and AML: e13a2 (previously b2a2) and e14a2 (previously b3a2) (major breakpoint, p210), as well as e1a2 (minor breakpoint, p190). The e13a2 and e14a2 transcript values are titrated to the current International Scale (IS). The standardized baseline is 100% BCR-ABL1 (IS) and major molecular response (MMR) is equivalent to 0.1% BCR-ABL1 (IS) correspondingto a 3-log reduction. Results should be correlated with appropriate clinical and laboratory information as indicated.Methodology Total RNA is isolated from the sample and subject to a real-time, reverse transcriptase polymerase chain reaction (RT-PCR). The PCR primers and probes are specific for BCR-ABL1 e13a2, e14a2 and e1a2 fusion transcripts. The ABL1 transcript is amplified as the controlfor cDNA quantity and quality. Serial dilutions of a validated positive control RNA with known t(9;22) BCR-ABL1 are used as reference for quantification of BCR-ABL1 relative to ABL1. The numeric BCR-ABL1 level is reportd as % BCR-ABL1/ABL1 and thedetection sensitivity is 4.5 log below the standard baseline. This test was developed and its performance characteristics determined by [email or web address]. It has not been cleared or approved by the Food and Drug Administration.References:1. Desirae T and Kathryn S: Seminars in Hematology 2003;40 (suppl2):62-68.2. Godfrey BARNARD, et al. Blood 2010; 116: c264-306.3. NCCN Clinical Practice Guidelines in Oncology, ChronicMyeloid Leukemia. V2. 2017. TESTING PERFORMED AT [facility]. ORIGINAL REPORT ON FILE IN LAB CONTAINS ADDITIONAL TEST SITE INFORMATION. RBC morphologyon 02-10-2018 RBC morphology finding Nom (Bld) NORM C+C NORMAL NORM C&C [facility] Vital Signs Date Time Vital Sign Value Performing Clinician Faci lity 09-27-2024 14:49-0400 Body height 154.[address] Johan Berg MD Work Phone: [facility] 09-27-2024 14:49-0400 Body mass index (BMI) [Ratio] 27.3 kg/m2 Dr. Johan Berg MD Work Phone: [facility] 09-27-2024 14:49-0400 Body temperature 98 [degF] Dr. Johan Berg MD Work Phone: [facility] 09-27-2024 14:49-0400 Body weight 65.[address] Johan Berg MD Work Phone: [facility] 09-27-2024 14:49-0400 Diastolic blood pressure 70 mm[Hg] Dr. Johan Berg MD Work Phone: [facility] 09-27-2024 14:49-0400 Heart rate 68 /min Dr. Johan Berg MD Work Phone: [facility] 09-27-2024 14:49-0400 Respiratory rate 18 /min Dr. Johan Berg MD Work Phone: [facility] 09-27-2024 14:49-0400 SaO2% (BldA) [Mass fraction] 98 % Dr. Johan Berg MD Work Phone: [facility] 09-27-2024 14:49-0400 Systolic blood pressure 119 mm[Hg] Dr. Johan Berg MD Work Phone: [facility] 12-23-2022 09:49-0400 Body height 154.[address] Johan Berg Work Phone: [facility] 12-23-2022 09:49-0400 Body mass index (BMI) [Ratio] 27.9 kg/m2 Dr. Johan Berg Work Phone: [facility] 12-23-2022 09:49-0400 Body weight 67.[address] Johan Berg Work Phone: [facility] 12-23-2022 09:49-0400 Diastolic blood pressure 81 mm[Hg] Dr. Johan Berg Work Phone: [facility] 12-23-2022 09:49-0400 Heart rate 69 /min Dr. Johan Berg Work Phone: [facility] 12-23-2022 09:49-0400 Respiratory rate 18 /min Dr. Johan Berg Work Phone: [facility] 12-23-2022 09:49-0400 SaO2% (BldA) [Mass fraction] 97 % Dr. Johan Berg Work Phone: [facility] 12-23-2022 09:49-0400 Systolic blood pressure 131 mm[Hg] Dr. Johan Berg Work Phone: [facility] 12-01-2022 14:53-0400 Body height 154.[address] Johan Berg Work Phone: [facility] 12-01-2022 14:53-0400 Body mass index (BMI) [Ratio] 27.8 kg/m2 Dr. Johan Berg Work Phone: [facility] 12-01-2022 14:53-0400 Body weight 66.[address] Jhoan Berg Work Phone: [facility] 12-01-2022 14:53-0400 Diastolic blood pressure 77 mm[Hg] Dr. Johan Berg Work Phone: [facility] 12-01-2022 14:53-0400 Heart rate 79 /min Dr. Johan Berg Work Phone: [facility] 12-01-2022 14:53-0400 Respiratory rate 18 /min Dr. Johan Berg Work Phone: [facility] 12-01-2022 14:53-0400 SaO2% (BldA) [Mass fraction] 100 % Dr. Johan Berg Work Phone: [facility] 12-01-2022 14:53-0400 Systolic blood pressure 128 mm[Hg] Dr. Johan Berg Work Phone: [facility] 11-27-2022 13:13-0400 Body height 154.[address] Johan Berg Work Phone: [facility] 11-27-2022 13:13-0400 Body mass index (BMI) [Ratio] 27.6 kg/m2 Dr. Johan Berg Work Phone: [facility] 11-27-2022 13:13-0400 Body temperature 97.8 [degF] Dr. Johan Berg Work Phone: [facility] 11-27-2022 13:13-0400 Body weight 66.[address] Johan Berg Work Phone: [facility] 11-27-2022 13:13-0400 Diastolic blood pressure 66 mm[Hg] Dr. Johan Berg Work Phone: [facility] 11-27-2022 13:13-0400 Heart rate 88 /min Dr. Johan Berg Work Phone: [facility] 11-27-2022 13:13-0400 Respiratory rate 16 /min Dr. Johan Berg Work Phone: [facility] 11-27-2022 13:13-0400 SaO2% (BldA) [Mass fraction] 98 % Dr. Johan Berg Work Phone: [facility] 11-27-2022 13:13-0400 Systolic blood pressure 168 mm[Hg] Dr. Johan Berg Work Phone: [facility] 10-02-2022 13:26-0400 Body mass index (BMI) [Ratio] 27.2 kg/m2 Dr. Johan Berg Work Phone: [facility] 10-02-2022 13:26-0400 Body temperature 97 [degF] Dr. Johan Berg Work Phone: [facility] 10-02-2022 13:26-0400 Body weight 65.[address] Johan Berg Work Phone: [facility] 10-02-2022 13:26-0400 Diastolic blood pressure 80 mm[Hg] Dr. Johan Berg Work Phone: [facility] 10-02-2022 13:26-0400 Heart rate 65 /min Dr. Johan Berg Work Phone: [facility] 10-02-2022 13:26-0400 Respiratory rate 16 /min Dr. Johan Berg Work Phone: [facility] 10-02-2022 13:26-0400 SaO2% (BldA) [Mass fraction] 99 % Dr. Johan Berg Work Phone: [facility] 10-02-2022 13:26-0400 Systolic blood pressure 125 mm[Hg] Dr. Johan Berg Work Phone: [facility] 11-27-2021 11:26-0400 Body height 154.[address] Johan Berg Work Phone: [facility] Work Phone: 11-27-2021 11:26-0400 Body mass index (BMI) [Ratio] 27.1 kg/m2 Dr. Johan Berg Work Phone: [facility] Work Phone: 11-27-2021 11:26-0400 Body weight 65.[address] Johan Berg Work Phone: [facility] Work Phone: 11-27-2021 11:26-0400 Diastolic blood pressure 64 mm[Hg] Dr. Johan Berg Work Phone: [facility] Work Phone: 11-27-2021 11:26-0400 Heart rate 79 /min Dr. Johan Berg Work Phone: [facility] Work Phone: 11-27-2021 11:26-0400 Respiratory rate 16 /min Dr. Johan Berg Work Phone: [facility] Work Phone: 11-27-2021 11:26-0400 Systolic blood pressure 107 mm[Hg] Dr. Johan Berg Work Phone: [facility] Work Phone: 10-03-2021 14:11-0400 Body mass index (BMI) [Ratio] 27.2 kg/m2 Dr. Johan Berg Work Phone: [facility] Work Phone: 10-03-2021 14:11-0400 Body temperature 98.1 [degF] Dr. Johan Berg Work Phone: [facility] Work Phone: 10-03-2021 14:11-0400 Body weight 65.[address] Johan Berg Work Phone: [facility] Work Phone: 10-03-2021 14:11-0400 Diastolic blood pressure 75 mm[Hg] Dr. Johan Berg Work Phone: [facility] Work Phone: 10-03-2021 14:11-0400 Heart rate 73 /min Dr. Johan Berg Work Phone: [facility] Work Phone: 10-03-2021 14:11-0400 Respiratory rate 15 /min Dr. Johan Berg Work Phone: [facility] Work Phone: 10-03-2021 14:11-0400 SaO2% (BldA) [Mass fraction] 98 % Dr. Johan Berg Work Phone: [facility] Work Phone: 10-03-2021 14:11-0400 Systolic blood pressure 120 mm[Hg] Dr. Johan Berg Work Phone: [facility] Work Phone: 10-03-2021 14:11-0400 Body height 154.[address] Johan Berg Work Phone: [facility] Work Phone: 10-03-2021 14:11-0400 Body mass index (BMI) [Ratio] 27.2 kg/m2 Dr. Johan Berg Work Phone: [facility] Work Phone: 10-03-2021 14:11-0400 Body temperature 98.1 [degF] Dr. Johan Berg Work Phone: [facility] Work Phone: 10-03-2021 14:11-0400 Body weight 65.[address] Johan Berg Work Phone: [facility] Work Phone: 10-03-2021 14:11-0400 Diastolic blood pressure 75 mm[Hg] Dr. Johan Berg Work Phone: [facility] Work Phone: 10-03-2021 14:11-0400 Heart rate 73 /min Dr. Johan Berg Work Phone: [facility] Work Phone: 10-03-2021 14:11-0400 Respiratory rate 15 /min Dr. Johan Berg Work Phone: [facility] Work Phone: 10-03-2021 14:11-0400 SaO2% (BldA) [Mass fraction] 98 % Dr. Johan Berg Work Phone: [facility] Work Phone: 10-03-2021 14:11-0400 Systolic blood pressure 120 mm[Hg] Dr. Johan Berg Work Phone: [facility] Work Phone: 03-26-2020 12:58-0500 Body temperature 97.9 [degF] Dr. Johan Berg Work Phone: [facility] 03-26-2020 12:58-0500 Body weight 65.[address] Johan Berg Work Phone: [facility] 03-26-2020 12:58-0500 Diastolic blood pressure 78 mm[Hg] Dr. Johan Berg Work Phone: [facility] 03-26-2020 12:58-0500 Heart rate 75 /min Dr. Johan Berg Work Phone: [facility] 03-26-2020 12:58-0500 Respiratory rate 16 /min Dr. Johan Berg Work Phone: [facility] 03-26-2020 12:58-0500 SaO2% (BldA) [Mass fraction] 98 % Dr. Johan Berg Work Phone: [facility] 03-26-2020 12:58-0500 Systolic blood pressure 115 mm[Hg] Dr. Johan Berg Work Phone: [facility] 03-26-2020 11:58-0500 Body temperature 97.9 [degF] Dr. Johan Berg Work Phone: [facility] Work Phone: 03-26-2020 11:58-0500 Body weight 65.[address] Johan Berg Work Phone: [facility] Work Phone: 03-26-2020 11:58-0500 Diastolic blood pressure 78 mm[Hg] Dr. Johan Berg Work Phone: [facility] Work Phone: 03-26-2020 11:58-0500 Heart rate 75 /min Dr. Johan Berg Work Phone: [facility] Work Phone: 03-26-2020 11:58-0500 Respiratory rate 16 /min Dr. Johan Berg Work Phone: [facility] Work Phone: 03-26-2020 11:58-0500 SaO2% (BldA) [Mass fraction] 98 % Dr. Johan Berg Work Phone: [facility] Work Phone: 03-26-2020 11:58-0500 Systolic blood pressure 115 mm[Hg] Dr. Johan Berg Work Phone: [facility] Work Phone: 10-13-2019 13:22-0400 Body mass index (BMI) [Ratio] 26.9 kg/m2 Dr. Johan Berg Work Phone: [facility] Encounters Encounter Date Encounter Type Care Provider Facility Start: 12-22-2024 ambulatory Johan Berg Facility: [facility] Start: 09-27-[address] Parth Walton MD -[facility] Start: 09-27-2024 End: 09-27-[address] Parth Walton MD -[facility] Work Phone: Start: 09-27-2024 End: 09-27-[address] Johan Berg MD Work Phone: [facility] Work Phone: Start: 09-15-2024 End: 09-15-2024 ambulatory JOHAN BERG [facility] Start: 09-05-2024 End: 09-05-2024 ambulatory JOHAN BERG [facility] Start: 08-29-2024 End: 08-29-2024 ambulatory JOHAN BERG [facility] Start: 04-11-2024 End: 04-11-2024 ambulatory LUIS PARNELL PA-C Facility:A Start: 04-01-2024 End: 04-01-[address] JOHAN BERG MD Facility:A Start: 04-01-2024 End: 04-01-2024 Patient encounter procedure LUIS PARNELL PA-C [facility] Start: 02-16-2024 End: 02-16-2024 ambulatory JOHAN BERG [facility] Start: 12-22-2023 End: 12-22-2023 ambulatory Johan Berg Facility:[facility] Start: 11-09-2023 ambulatory JOHAN EBRG [facility] Start: 10-14-2023 End: 10-14-2023 ambulatory JOHAN BERG [facility] Start: 12-23-2022 End: 12-23-[address] Johan Berg Work Phone: [facility] Work Phone: Start: 12-18-2022 End: 12-18-[address] Johan Berg Work Phone: [facility] Work Phone: Start: 12-18-2022 End: 12-18-[address] Johan Berg Work Phone: [facility]Outpatient Breast Imaging Work Phone: Start: 12-11-[address] Johan Berg Work Phone: [facility]Cardiovascular Services Work Phone: Start: 12-01-2022 End: 12-01-[address] Johan Berg Work Phone: [facility] Work Phone: Start: 11-27-2022 End: 11-27-[address] Johan Berg Work Phone: [facility] Work Phone: Start: 11-27-2022 End: 11-27-[address] Johan Berg Work Phone: [facility] Work Phone: Start: 11-27-2022 End: 11-27-2022 Emergency department patient visit Dr. Johan Berg Work Phone: [facility]-Emergency Department Work Phone: Start: 11-03-2022 ambulatory [facility] Facility: [facility] Start: 10-02-[address] Christina Berg Work Phone: [facility] Start: 10-02-2022 End: 10-02-[address] Johan Berg Work Phone: [facility] Work Phone: Start: 09-30-2022 ambulatory SELF SELF Facility:[facility] Start: 12-16-2021 Non-patient / Non-visit Dr. Rosey Berg Work Phone: [facility] Start: 12-16-2021 End: 12-16-[address] Johan Berg Work Phone: [facility]Card[facility] Start: 12-10-2021 End: 12-10-[address] Johna Berg Work Phone: [facility]-Pulmonary Services/Neurology Start: 11-28-2021 End: 11-28-[address] Johan Berg Work Phone: [facility]Outpatient Breast Imaging Start: 11-27-2021 End: 11-27-[address] Johan Berg Work Phone: [facility]-Laboratory Start: 11-27-2021 End: 11-27-[address] Johan Berg Work Phone: [facility] Start: 10-03-[address] Christina Berg Work Phone: [facility] Start: 10-03-2021 End: 10-03-[address] Johan Berg Work Phone: [facility] Start: 10-01-2021 End: 10-01-[address] Johan Berg Work Phone: [facility] Procedures Date Procedure Procedure Detail Performing Clinician Start: 09-27-[address] Johan Berg MD Work Phone: Start: 10-01-2023 Measurement of renal function Dr. Johan Berg MD Work Phone: Comment on above: GFR Calc Start: 12-18-2022 Screening mammography Kobe Berg Work Phone: Start: 11-28-2021 Screening mammography Kobe Berg Work Phone: Start: 10-01-2021 CT of thorax with contrast Dr. Johan Berg Work Phone: Start: 10-13-2019 End: 10-13-2019 Plain X-ray of shoulder Dr. Johan shen Work Phone: Start: 04-14-[address] Johan Berg MD Work Phone: Abdominal hysterectomy LUIS PARNELL PA-C Extraction of cataract LUIS PARNELL PA-C Lumpectomy of breast LUIS MCDONALD PA-C Plan of Treatment Date Care Activity Detail Author Start: 09-27-2024 [facility] Start: 11-27-2022 24 Hour ECG [facility] Start: 11-27-2022 Emergency department visit high/urgent severity EMERGENCY DEPT VISIT MOD MDM [facility] Start: 10-13-2019 Venous catheter care management [facility] Start: 04-14-2018 [facility] Start: 04-07-2018 Disease process or condition education [facility] Start: 04-07-2018 Medication monitoring [facility] Start: 04-07-2018 Precautionary procedure [facility] Start: 04-07-2018 Vital signs measurements [facility] Start: 04-07-2018 [facility] Start: 03-25-2018 Serum inorganic phosphate measurement [facility] Start: 03-25-2018 [facility] Start: 03-17-2018 Disease process or condition education [facility] Start: 03-17-2018 Medication monitoring [facility] Start: 03-17-2018 Precautionary procedure [facility] Start: 03-17-2018 Vital signs measurements [facility] Start: 03-17-2018 [facility] Start: 03-04-2018 [facility] Start: 02-24-2018 Disease process or condition education [facility] Start: 02-24-2018 Medication monitoring [facility] Start: 02-24-2018 Precautionary procedure [facility] Start: 02-24-2018 Vital signs measurements [facility] Start: 02-24-2018 [facility] Start: 02-17-2018 [facility] Start: 02-10-2018 [facility] Start: 02-03-2018 Disease process or condition education [facility] Start: 02-03-2018 Medication monitoring [facility] Start: 02-03-2018 Precautionary procedure [facility] Start: 02-03-2018 Vital signs measurements [facility] Start: 02-03-2018 [facility] Start: 01-27-2018 [facility] 24 Hour ECG [facility] Work Phone: CT Abdomen and Pelvi s W contrast IV [facility] Work Phone: CT Abdomen and Pelvi s W contrast IV [facility] CT Chest W contrast IV [facility] Work Phone: CT Chest W contrast IV [facility] MG Breast - bilatera l Screening [facility] MG Breast - bilatera l Screening [facility] Patient Education ED Palpitations [facility] Work Phone: Patient referral [facility] Work Phone: [facility] Work Phone: [facility] Immunizations Immunization Date Immunization Notes Care Provider Fa [facility] 02-17-2018 influenza, injectabl e, quadrivalent, preservative free Dr. Johan Berg MD Work Phone: [facility] 02-17-2018 influenza, seasonal, injectable Dr. Johan Berg Work Phone: [facility] 02-17-2018 Flu Vac Qs 2019(4 Yr Up)Cd(Pf) (Flucelvax Quad [id number] (Pf)) 0.[address] Johan Berg Work Phone: [facility] Work Phone: Payers Date Payer Category Payer Medicare [id number] 2018 Self-pay [id number] 1945 Unknown [id number] 2.16. [id number] 1945 Unknown [id number] 2.16. [id number] 1945 Unknown [id number] 2.16.8 [id number] 1945 Unknown [id number] 2.16.8 [id number] 1945 Unknown [id number] 2.16.8 [id number] 1945 Unknown [id number] 2.16.8 [id number] 1945 Unknown [id number] 2.16.8 [id number] 1945 Unknown [id number] 2.16.8 [id number] 1945 Unknown [id number] 2.16.8 [id number] 1945 Unknown [id number] 2.16.8 [id number] 1945 Unknown [id number] 2.16.8 [id number] 1945 Unknown [id number] 2.16.8 [id number] Medicare SELF PAY INSURANCE [id number] Medicare MEDICARE PART A B [id number] Unknown [id number] Unknown [id number] 2.16.8 [id number] Unknown [id number] 2.16.8 [id number] Unknown [id number] 2.16.8 [id number] Unknown [id number] 2.16.8 [id number] Social History Date Type Detail Facility Start: 03-26-2020 End: 12-23-2022 Tobacco smoking status TXIS Unknown if ever smoked [facility] Start: 03-26-2020 Non-smoker [facility] Start: 1945 Sex Assigned At Female [facility] Start: 01-30-2023 End: 12-22-2023 Tobacco smoking status Never smoked tobacco (finding) [facility] Procedure Code Equipment Code Equipment Origin al Text Equipment Identifier Dates PORT,6FR POWER PORT FDA Start : 01-28-2018 PORT,6FR POWER PORT FDA Start : 01-28-2018 PORT,6FR POWER PORT FDA Start : 01-28-2018 PORT,6FR POWER PORT FDA Start : 01-28-2018 PORT,6FR POWER PORT FDA Start : 01-28-2018 PORT,6FR POWER PORT FDA Start : 01-28-2018 PORT,6FR POWER PORT FDA Start : 01-28-2018 PORT,6FR POWER PORT FDA Start : 01-28-2018 PORT,6FR POWER PORT FDA Start : 01-28-2018 Mental Status Date Assessment Result Facility 11-27-2022 Cognitive function Voice/Name [facility] Work Phone: 04-07-2018 Cognitive function Mood Descript ion Appropriate;Calm;Relaxed [facility] Work Phone: Clinical Notes 01-27-2018 to 09-27-2024 Note Date & Type Note Facility 09-27-2024 Progress note [facility] 09-27-2024 Progress note Note Date/Time September 27, 2024 3:16pm [facility] [address] [place] [address] OFFICE VISIT Date of Service: 09/27/24 1449 MR#: [id number] Acct: [id number] Name: SHAYNE MONTES Rep #: [id number] : 1945 From: Parth Walton MD Age/Sex: 79/F Location: [facility] [place] Status: Signed HPI Subjective Date of Service 09/27/24 Chief Complaint F/U for R breast cancer. History of Present Illness 79 y.o.woman with a PMH positive for chronic leukopenia, diverticulitis and hypothyroidism who detected a mass in the R breast November 2017. She underwent US guided R core biopsy on 11/21/2017 which showed invasive ductal carcinoma. She went on to have right breast lumpectomy and sentinel lymph node biopsy on 12/18/2017 under the care of Dr. Lange, pathology showed single focus, grade 3 invasiveductal ca, ER-, LA- and HER2 0 per IHC, margins negative, tumor measured 1.8 cm and 5/5 LN negative for metastatic disease. Stage IA(pT1c pN0 M0). Post operative period uncomplicated. Began adjuvant Taxotere and Cytoxan 02/03/18. She developed neutropenic fever about a week after starting chemotherapy. Cycle2 Taxotere reduced by 20%. CT chest obtained 03/04/18 showed 3 mm nodule in theright middle lobe. Completed cycle 4 Taxotere/Cytoxan on 04/07/18. Received adjuvant Radiation to the R breast in [place] under the care of Dr. Taz Fuller. She is now on observation. Comes for follow up. Feels well. [facility] Medical History (Updated 09/27/24 @ 15:[address] Parth Walton MD) biateral cataract surgery Hyperlipidemia Palpitations History of right breast cancer Chemotherapy induced neutropenia Lung nodules Leukocytosis Malignant neoplasm of upper-outer quadrant of right female breast Anemia associated with chemotherapy Breast cancer, right breast Breast mass, right History of broken nose Diverticulitis Hypothyroid Surgical History (Updated 09/27/24 @ 14:57 by Janae Laws LPN) History of lumpectomy of right breast (11/2017) H/O colonoscopy History of breast biopsy H/O: hysterectomy H/O tubal ligation Family History Father Heart disease Mother Hypertension Cancer CAD (coronary artery disease) Social History Smoking Status: Never smoker alcohol intake: never substance use type: does not use caffeine: No Intake Vital Signs 10/01/23 14:26 09/27/24 14:49 Height 5 ft 1 in 5 ft 1 in Weight: 66.338 kg 65.516 kg BMI 27.6 27.3 BP 122/70 H 119/70 Blood Pressure Location Lt brachial Position Sitting Sitting Respiration 16 18 Pulse 63 68 Pulse Source Monitor Temp 98.0 F 98 F Temperature Source Temporal Artery Pulse Oximetry (%) 95 98 Oxygen Delivery Method room air room air Intake Is patient in pain?: No Allergies ciprofloxacin (From Cipro) Allergy (Intermediate, Verified 09/27/24 14:53) Anaphylaxis erythromycin base Allergy (Mild, Verified 09/27/24 14:53) Unknown Medications ?Medication ?Instructions ?Recorded ?Confirmed ?Type calcium 315 mg (as 2 tab PO BID 10/15/17 History citrate)-vitamin D3 6.25 mcg (250 unit) tablet (Citracal + Vitamin D Maximum) loratadine 10 mg tablet (Claritin) 10 mg PO QDAY 10/1509/27/24 History multivitamin 1 cap PO QAM 10/15/17 History sennosides 8.6 mg tablet (Senna 8.6 mg PO DAILY 09/27/24 History Lax) fluticasone propionate 50 1 spray intranasal DAILY 09/27/24 History mcg/actuation nasal spray,suspension (Flonase Allergy Relief) levothyroxine 75 mcg tablet 75 mcg PO DAILY 11/27/21 0 09/27/24 History diltiazem HCl 120 mg 120 mg PO DAILY #30 caps 08/0709/27/24 Rx capsule,extended release 24 hr atorvastatin 20 mg tablet 20 mg PO QHS 10/01/23 History Have you fallen in the past year?: Yes Central Venous Access Central Venous Access: No Laboratory Tests 09/27/24 09/27/24 14:08 14:12 WBC 6.3 Hgb 13.3 Hct 40.6 Plt Count 222 Absolute Neuts (auto) 3.7 Absolute Lymphs (auto) 1.79 Sodium 140 Potassium 3.8 Chloride 103 Carbon Dioxide 28.7 BUN 15 Creatinine 0.69 L Glucose 150 H Hemoglobin A1c 5.7 Calcium 9.6 Total Bilirubin 0.30 AST 26 ALT 22 Alkaline Phosphatase 92 Lactate Dehydrogenase 204 Total Protein 6.8 Albumin 4.2 Globulin 2.6 Exam Physical Exam Const alert, oriented x3 and no apparent distress General Appearance: cooperative and comfortable HEENT normocephalic, external ears normal and external nose normal Eyes PERRL, conjunctivae normal and no scleral icterus Neck full ROM and supple Lymph Lymphatic: no lymphadenopathy noted Chest inspection of chest normal and palpation of breasts normal Resp normal respiratory effort and clear to auscultation bilaterally Cardio regular rate, regular rhythm, S1 normal heart sound, S2 normal heart sound and no murmurs GI normal to inspection, nondistended, normoactive bowel sounds no CVA tenderness Back/Spine no CVA tenderness and thoracic and lumbar spine normal to inspection Extremity normal to inspection and no clubbing, cyanosis or edema Skin no rashes or lesions noted Neuro oriented x3, CN's II-XII intact bilaterally, moves all extremities and no focal motor deficits Psych mental status grossly normal Coding Level of Care Code Off vis,est,level 3 Exam Problem Focused Diagnoses Malignant neoplasm of upper-outer quadrant of right breast in female, estrogen receptor negative C50.411; Z17.1 Breast location: upper outer quadrant of breast Estrogen receptor status: negative Patient sex: female Assessment and Plan Assessment and Plan (1) Breast cancer, right breast: Status: Chronic Qualifiers: Breast location: upper outer quadrant of breast Estrogen receptor status: negative Patient sex: female Qualified Code(s): C50.411 - Malignant neoplasm of upper-outer quadrant of right female breast; Z17.1 - Estrogen receptor negative status [ER-] Comment: No evidence of disease clinically. Labs reviewed, within normal limits. Plan: To continue observation. check tumor markers. Plan Details Follow Up: 12 Months Clinical Quality Measures Falls Risk Screening/Assistive Devices Have you fallen in the past year?: Yes 09/27/24 1516 <Electronically signed by Parth Bullock> Date _ Parth Walton MD Cosigner Signature: Date (if applicable) CC: Dr. Johan Berg MD ~ [facility] Work Phone: [phone]) 554-875911-15-2024 Evaluation + Plan note Future Scheduled Tests Radiology* NM Myocardial Spect Rest/Stress 04/01/24 [facility] 09-12-2018 Hospital Discharge instructionsAmbulatory Orders* Durable Medical Equipment Time Frame: 01/27/18, Location: None Selected * ONC Referral: Cardiology Time Frame: 0 Days, Location: None Selected * ONC Referral: Surgery Time Frame: 01/27/18, Location: Determined By Patient * Phosphorus Location: Laboratory * Return to Office Location: None Selected * Return to Office Location: None Selected * Return to Office Location: None Selected * Return to Office Location: None Selected * Return to Office Location: None Selected * Return to Office Location: None Selected [facility] Work Phone: Evaluation note* Diagnosis Onset Date Resolution Status Breast cancer, right breast chronic Lung nodule chronic Breast cancer, right breast chronic Palpitations chronic Educational circumstance res olved Fever resolved [facility] Work Phone: Evaluation note* Diagnosis Onset Date Resolution Status Breast cancer, right breast chronic Lung nodule chronic Breast cancer, right breast chronic Palpitations chronic Educational circumstance res olved Fever resolved Hyperlipidemia chronic Palpitations chronic [facility] Work Phone: Evaluation note* Diagnosis Onset Date Resolution Status Breast cancer, right breast chronic Lung nodule chronic Breast cancer, right breast chronic Palpitations chronic Educational circumstance res olved Fever resolved Hyperlipidemia chronic Palpitations chronic Hyperlipidemia chronic Palpitations chronic [facility] Work Phone: Evaluation note* Diagnosis Onset Date Resolution Status Admit Date Breast cancer, right breast chronic September 27, 2024 2:06pm Breast cancer, right breast chronic September 27, 2024 2:15pm Palpitations chronic September 27 2:15pm Educational circumstance resolved September 27, 2024 2:15pm Fever resolved September 27, 2024 2:15pm Chemotherapy management, encounter for inactive September 27, 2024 2 :15pm Encounter for education inactive M 2024 2:15pm Flu vaccine need inactive September 2:15pm [facility] Work Phone: Hospital course Narrative No data available for this section [facility] Hospital Discharge instructions No data available for this section [facility] Progress note No data available for this section [facility] Reason for referral (narrative)No reason for referral information availableBlSan [facility] Work Phone: Summary Purpose Family History No Family History Records Found Relationship Condition Age at Onset Recorded Date/T fidelina father Cardiac disease Unknown mother Hypertension Unknown Malignant neoplasm Unknown Coronary artery disease Unknown Advance Directives No Advanced Directives Records Found Advance Directive Response Recorded Date/ Time Advance Directives on File Yes 2017 11:49am Name of Medical Power of Marketing Summer Intern Homero Montes April 07, 2018 11:49am Advance Directives Yes March 11:49am Living Will Yes April 07 018 11:49am Power of Marketing Summer Intern Yes April 07, 2018 11:49am Advance Directive Response Recorded Date/ Time Advance Directives on File Yes 2017 11:49am Name of Medical Power of Marketing Summer Intern Homero Montes April 07, 2018 11:49am Name of Medical Power of Marketing Summer Intern alberto saxena dtr November 27, 2022 1:29pm Advance Directives Yes March 11:49am Living Will Yes November 27, 2022 1:29pm Power of Marketing Summer Intern Yes November 27 1:29pm Advance Directive Response Recorded Date/ Time Advance Directives on File Yes 2017 11:49am Living Will Yes April 07, 018 11:49am Do you have a Healthcare Power of Marketing Summer Intern? Yes April 07, 2018 11:49am Name of Medical Power of Marketing Summer Intern Homero oMntes April 07, 2018 11:49am Advance Directives Yes March 11:49am Chief Complaint and Reason for Visit Chief Complaint LUNG NODULE 1YR LABS REVIEW [address] ONC/HEM Reason for Visit Breast cancer, right breast Lung nodule Breast cancer, right breast Palpitations Educational circumstance Fever Chief Complaint LUNG NODULE 1YR LABS REVIEW [address] ONC/HEM ed visit [facility], palp INT LABS SCREENING Reason for Visit Breast cancer, right breast Lung nodule Breast cancer, right breast Palpitations Educational circumstance Fever Hyperlipidemia Palpitations Chief Complaint LUNG NODULE [address]YR LABS RE[address] ONC/HEM ed visit [facility], palp INT LABS SCREENING PALP Reason for Visit Breast cancer, right breast Lung nodule Breast cancer, right breast Palpitations Educational circumstance Fever Hyperlipidemia Palpitations Chief Complaint LUNG NODULE [address]YR LABS RE[address] ONC/HEM ed visit [facility], palp INT LABS SCREENING PALP PALP, RT BREAST CANCER Reason for Visit Breast cancer, right breast Lung nodule Breast cancer, right breast Palpitations Educational circumstance Fever Hyperlipidemia Palpitations Chief Complaint 1YR LABS ONC/HEM PALPITATIONS 24 HOUR HOLTER MONITOR Reason for Visit Breast cancer, right breast Lung nodule Breast cancer, right breast Palpitations Educational circumstance Fever Chief Complaint 1YR LABS ONC/HEM PALPITATIONS 24 HOUR HOLTER MONITOR Symptomatic josue, see clinical note L.L. Reason for Visit Breast cancer, right breast Lung nodule Breast cancer, right breast Palpitations Educational circumstance Fever Hyperlipidemia Palpitations Chief Complaint 1YR LABS ONC/HEM PALPITATIONS 24 HOUR HOLTER MONITOR Symptomatic josue, see clinical note L.L. Palpitations, Daniel SCREENING, HX RT BREAST CANCER S/P POM 11/27/22 Reason for Visit Breast cancer, right breast Lung nodule Breast cancer, right breast Palpitations Educational circumstance Fever Hyperlipidemia Palpitations Hyperlipidemia Palpitations Chief Complaint Admit Date 1YR LABS September 27, 2024 2:06p m ONC/HEM September 27, 2024 2:15p m Reason for Visit Admit Date Breast cancer, right breast September 27 2:06pm Breast cancer, right breast September 27 2:15pm Palpitations September 27, 2024 2:15p m Educational circumstance September 27, 2024 2:15pm Fever September 27, 2024 2:15p m Chemotherapy management, encounter for M ay 2024 2:15pm Encounter for education September 27, 2024 2 :15pm Flu vaccine need September 27, 2024 2:15p m Additional Source Comments INFORMATION SOURCE (unrecogn ized section and content) DATE CREATED AUTHOR 12/15/2019 [facility] DATE CREATED AUTHOR AUTHOR'S ORGANIZ ATION 11/09/2022 [facility] DATE CREATED AUTHOR AUTHOR'S ORGANIZ ATION 08/31/2024 [facility] DATE CREATED AUTHOR AUTHOR'S ORGANIZ ATION 09/20/2024 [facility] DATE CREATED AUTHOR AUTHOR'S ORGANIZ ATION 09/22/2024 [facility] DATE CREATED AUTHOR AUTHOR'S ORGANIZ ATION 12/21/2024 [facility] Goals (unrecognized section and content) Goals may be documented in a n alternate sectionGoals may be documented in an alternate sectionGoals may be documented in an alternate sectionGoals may be documented in an alternate sectionGoals may be documented in an alternate sectionGoals may be documented in an alternate sectionGoals may be documented in an alternate sectionGoals may be documented in an alternate section No data available for this sectionGoals may be documented in an alternate section Care Teams (unrecognized sec tion and content) Team Status: Active Member Role Status Dates Dr. Johan Berg MD Family Provider Active Dr. Johan Berg MD Primary Care Provider Active Team Status: Inactive Member Role Status Dates Dr. Johan Berg MD Primary Care Provider, Referrin g Provider Active Dr. Parth Walton MD Attending Provider Active Team Status: Active Member Role Status Dates Dr. Johan Berg MD Primary Care Provider, Family P rovider Active Dr. Parth Walton MD Attending Provider Active Dr. Tevin Lange MD Referring Provider Active Team Status: Inactive Member Role Status Dates Dr. Johan Berg MD Primary Care Provider Active Dr. Ghulam Baker MD Emergency Provider Active Team Status: Active Member Role Status Dates Dr. Johan Berg MD Primary Care Provider Active Dr. Jv Sanchez MD Attending Provider, Referring Pro vider Active Team Status: Inactive Member Role Status Dates Dr. Johan Berg MD Primary Care Provider, Referrin g Provider Active Sandra Vega PA, PA Attending Provider Active Team Status: Inactive Member Role Status Dates Dr. Johan Berg MD Primary Care Provider Active Dr. Ghulam Baker MD Attending Provider, Emergency Provider Active Team Status: Inactive Member Role Status Dates Dr. Johan Berg MD Primary Care Provider Active Dr. Jv Sanchez MD Attending Provider, Referring Pro vider Active Team Status: Inactive Member Role Status Dates Dr. Johan Berg MD Primary Care Provider, Referrin g Provider Active Justin Scruggs GOSPEL SINGER, GOSPEL SINGER-C Attending Provider Active Team Status: Inactive Member Role Status Dates Dr. Johan Berg MD Primary Care Provider Active Dr. Parth Walton MD Attending Provider, Referring Pro vider Active Team Status: Active Member Role Status Dates Dr. Johan Berg MD Primary Care Provider Active Gerri Galvan GOSPEL SINGER, GOSPEL SINGER-C Attending Provider Active Team Status: Active Member Role Status Dates Dr. Johan Berg MD Primary Care Provider Active Team Status: Inactive Member Role Status Dates Dr. Johan Berg MD Primary Care Provider Active Start: September 27, 2024 End: September 27, 2024 Dr. Johan Berg MD Referring Provider Active Start: September 27, 2024 End: September 27, 2024 Dr. Parth Walton MD Attending Provider Active S tart: September 27, 2024 End: September 27, 2024 Team Status: Active Member Role Status Dates Dr. Johan Berg MD Primary Care Provider Active Start: September 27, 2024 Dr. Johan Berg MD Family Provider Active St art: September 27, 2024 Dr. Parth Walton MD Attending Provider Active S tart: September 27, 2024 Dr. Tevin Lange MD Referring Provider Active Start: September 27, 2024 FOR RECORDS PERTAINING TO PATIENTS WHO ARE OR HAVE BEEN ENROLLED IN A CHEMICAL DEPENDENCY/SUBSTANCEABUSE PROGRAM, SOME INFORMATION MAY BE OMITTED. This clinical summary was aggregated from multiple sources. Caution should be exercised in using it in the provision of clinical care. This summary normalizes information from multiple sources, and as a consequence, information in this document may materially change the coding, format and clinical context of patient data. In addition, data may be omitted in some cases. CLINICAL DECISIONS SHOULD BE BASED ON THE PRIMARY CLINICAL RECORDS. [facility] [employer] [facility]. provides no warranty or guarantee of the accuracy or completeness of information in this document.
== END | disposition home or self-care (01) ==
PROVIDERS: PCP Nurse Practitioner Acute Care; Referring Provider Internal Medicine Medical Oncology; Visit Provider Internal Medicine Medical Oncology
DX: Z12.31 Encounter for screening mammogram for malignant neoplasm of breast (principal)
CPT/HCPCS: 77063; 77067